=== PATIENT | male | born 1940 | race Caucasian/White ===

== ENCOUNTER → 2018-08-30 | Outpatient (CLI) | payer MEDICARE, OTHER ==
[2018-08-30 13:22] LABS: HCT 44.7 % (39.0-53.0); HGB 14.7 gm/dL (13.0-17.5); MCH 29.8 pg (25.0-35.0); MCHC 32.9 g/dL (31.0-37.0); MCV 90.8 fL (80.0-100.0); Mean Platelet Volume 7.8; Platelet Count 235 k/uL (150-450); RBC 4.93 m/uL (4.30-5.90); RDW 14.4 % (11.5-15.5); WBC 6.9 k/uL (3.8-10.6)
[2018-08-30 13:26] LABS: ALT 24 U/L (21-72); AST 42 U/L (17-59); Alkaline Phosphatase 67 U/L (38-126); Anion Gap 4 mmol/L; Blood Urea Nitrogen 21 mg/dL (9-20); Calcium 9.3 mg/dL (8.4-10.2); Carbon Dioxide 32 mmol/L (22-30); Chloride 102 mmol/L (98-107); Glucose 88 mg/dL (74-99); Potassium 4.8 mmol/L (3.5-5.1); Sodium 138 mmol/L (137-145); Total Bilirubin 0.7 mg/dL (0.2-1.3); Total Protein 6.7 g/dL (6.3-8.2)
[2018-08-30 13:27] LABS: INR 0.9 (<1.2); Partial Thromboplastin Time 26.6 sec (22.0-30.0); Prothrombin Time 10.2 sec (9.0-12.0)
[2018-08-30 13:39] LABS: Appearance,Urine Clear (Clear); Bilirubin,Urine Negative (Negative); Blood,Urine Negative (Negative); Color,Urine Yellow; Glucose,Urine (UA) Negative (Negative); Ketones,Urine Negative (Negative); Leukocyte Esterase,Urine Negative (Negative); Nitrite,Urine Negative (Negative); Protein,Urine Negative (Negative); Specific Gravity,Urine 1.028 (1.001-1.035)
== END | disposition home or self-care (01) ==
LOC: LABPAT 12:14
PROVIDERS: ATTEND Orthopaedic Surgery Sports Medicine
DX: Z01.812 Encounter for preprocedural laboratory examination (principal); Z79.01 Long term (current) use of anticoagulants
CPT/HCPCS: 36415; 80053; 81003; 85027; 85610; 85730; 87070

== ENCOUNTER 2018-09-25 09:19 | Inpatient (IN) | payer MEDICARE, OTHER ==
[~2018-09-25 09:19] MED LIST: ACETAMINOPHEN TAB 500 MG TAB PO ONE; MELOXICAM 7.5 MG TAB PO ONE; ONDANSETRON 4 MG/2 ML VIAL IVP ONE; TRANEXAMIC ACID 1,000 MG in SODIUM CHLORIDE 0.9% 100 ML IVPB ONE; ceFAZolin IN SWFI 2 GM/20 ML SYRINGE IVP ONE
[2018-09-25] MEDS ORDERED: LACTATED RINGERS 1,000 ML IV ONE ×3 (11:21→16:59)
[2018-09-25] MEDS: ROPIVACAINE 246.25 MG, EPINEPHrine 0.5 MG, KETOROLAC 30 MG, cloNIDine HCL/PF 80 MCG, WA... MISCELLANE ONE ×10 (12:36→13:35)
[2018-09-25] MEDS ORDERED: traMADol 50 MG TAB PO PRN (12:36)
[2018-09-25] MEDS ORDERED: BISACODYL 10 MG SUPP RECTAL PRN (12:36)
[2018-09-25] MEDS ORDERED: NALOXONE 0.4 MG/ML 1 ML VIAL IV PRN ×2 (12:36→17:01)
[2018-09-25] MEDS ORDERED: HYDROmorphone 0.5 MG/0.5 ML SYRINGE IVP PRN ×3 (12:36)
[2018-09-25] MEDS ORDERED: MAGNESIUM HYDROXIDE 2,400 MG/10 ML CUP PO PRN (12:36)
[2018-09-25] MEDS ORDERED: TEMAZEPAM 15 MG CAP PO PRN (12:36)
[2018-09-25] MEDS ORDERED: NA PHOS,M-B/NA PHOS,DI-BA 133 ML ENEMA RECTAL PRN (12:36)
[2018-09-25] MEDS ORDERED: DIAZEPAM 5 MG TAB PO PRN (12:36)
[2018-09-25] MEDS ORDERED: ONDANSETRON 4 MG in SODIUM CHLORIDE 0.9% 50 ML IVPB PRN (12:44)
[2018-09-25] MEDS ORDERED: ONDANSETRON 4 MG/2 ML VIAL IVP PRN (12:46)
[2018-09-25] MEDS ORDERED: MIDAZOLAM 2 MG/2 ML VIAL ONE (12:52)
[2018-09-25] MEDS ORDERED: ePHEDrine SULFATE/0.9% NACL/PF 50 MG/5 ML SYRINGE IV ONE (12:52)
[2018-09-25] MEDS ORDERED: MORPHINE SULFATE (PF) 0.3 MG/0.3 ML SYR ONE (12:52)
[2018-09-25] MEDS ORDERED: TRANEXAMIC ACID 1,000 MG/10 ML VIAL ONE (12:52)
[2018-09-25] MEDS ORDERED: PROPOFOL 10 MG/ML 20 ML VIAL IV ONE (12:52)
[2018-09-25] MEDS ORDERED: fentaNYL (PF) 50 MCG/ML 2 ML AMP ONE (12:52)
[2018-09-25] MEDS ORDERED: SODIUM CHLORIDE 0.9% 100 ML BAG ONE (12:52)
[2018-09-25] MEDS ORDERED: ceFAZolin 3,000 MG in SODIUM CHLORIDE 0.9% IRRIGATIO 3,000 ML IRRIGATION ONE (13:35)
--- NOTE | 2018-09-25 15:36 | XR ---
EXAMINATION TYPE: XR knee limited RT DATE OF EXAM: 09/25/2018 COMPARISON: NONE TECHNIQUE: Two views submitted HISTORY: Post op FINDINGS: There is a prosthetic knee in near anatomic alignment. There is soft tissue edema and emphysema. IMPRESSION: 1. Postoperative change. Appears in near-anatomic alignment
[2018-09-25] MEDS ORDERED: NALBUPHINE 10 MG/ML (1 ML AMP) IV PRN (17:01)
[2018-09-25] MEDS ORDERED: diphenhydrAMINE 50 MG/ML 1 ML VIAL IVP PRN (17:01)
[2018-09-25 17:24] VITALS: BMI 30.4
[2018-09-25] MEDS ORDERED: FUROSEMIDE 20 MG TAB PO PRN (18:13)
[2018-09-25] MEDS: LACTATED RINGERS 1,000 ML IV SCH (18:59)
--- NOTE | 2018-09-25 19:52 | CONS ---
CONSULTATION REASON FOR CONSULTATION: Advice regarding hypertension, multiple medical issues requested by Orthopedic surgery. HISTORY OF PRESENT ILLNESS: This 78-year-old gentleman with a past medical history of GERD, hypertension, history of DJD, history of macular degeneration, cholecystomy being followed by Dr. Weems in the outpatient setting underwent right total knee arthroplasty. There is no history of fever, rigors or chills. No history of headache, loss of consciousness, chest pain, palpitations, hematochezia or melena at this time. PAST MEDICAL HISTORY: GERD, hypertension, DJD, macular degeneration, cholecystectomy. MEDICATIONS: Home medications are: 1. Vitamin C. 2. Zinc. 3. Omeprazole. 4. Lisinopril. 5. Hydrochlorothiazide. 6. Zestoretic. 7. Lasix 20 mg. 8. Vitamin D3. 9. Aspirin 320 mg b.i.d. ALLERGIES: None. FAMILY HISTORY: History of cancer in the family. SOCIAL HISTORY: Previous history of smoking. No history of alcohol intake. REVIEW OF SYSTEMS: ENT: No diminished vision. No diminished hearing. CARDIOVASCULAR: No angina or palpitations. RESPIRATIONS: As mentioned earlier. GI no nausea or vomiting. no dysuria. NERVOUS SYSTEMS: No asthma or hayfever. MUSCULOSKELETAL: As mentioned earlier. HEMATOLOGY/ONCOLOGY: No history of anemia. ENDOCRINE: No history of diabetes or hypothyroidism. CONSTITUTIONAL: As mentioned earlier. DERMATOLOGY: Negative. RHEUMATOLOGY: Negative. PSYCHIATRY: As mentioned earlier. PHYSICAL EXAMINATION: Alert and oriented x2. Pulse 52. Blood pressure 123/50, respiration 18, temperature 97.7, pulse ox 100 percent on room air. HEENT: Conjunctivae normal. Oral mucosa moist. NECK is no jugular venous distention. No carotid bruit. No lymph node enlargement. CARDIOVASCULAR SYSTEM: No S3, no S4. RESPIRATORY: Breath sounds diminished in the bases. No rhonchi. No crackles. ABDOMEN: Soft, nontender. No mass palpable. LEGS: Status post right knee arthroplasty. NERVOUS SYSTEM: Higher functions as mentioned earlier. Moves all four limbs. No focal deficits. LYMPHATICS: No lymph nodes palpable in the neck, axillae or groin. SKIN: No ulcer, no rashes, no bleeding. JOINTS: Mentioned earlier. LABS: Previous labs, CBC, BMP recent within normal limits. ASSESSMENT: 1. Status post right total knee arthroplasty. 2. Bradycardia, possibly sinus. 3. Gastroesophageal reflux disease. 4. Hypertension. 5. History of degenerative joint disease. 6. History of macular degeneration. 7. Leaky aortic valve, stable. 8. History of cholecystectomy. 9. Remote history of nicotine dependence. 10.FULL CODE. RECOMMENDATIONS AND DISCUSSION: This 78-year-old gentleman presented after surgery at this time I recommend to continue current medications, management and symptomatic treatment. I recommend resume the home medications and closely monitor. The patient may be asked to follow up with Dr. Weems after discharge. Thank you for letting us participate in the care of this patient. MMODL / IJN: [id number] /
--- NOTE | 2018-09-25 20:34 | OP ---
OPERATIVE REPORT DATE OF PROCEDURE: 09/25/2018. SURGEON: Josh Espinoza M.D. PNEUMATIC SYSTEM CONVEYOR OPERATOR: Eric QUINTANA. PREOPERATIVE DIAGNOSIS: Right knee osteoarthrosis. POSTOPERATIVE DIAGNOSIS: Right knee osteoarthrosis. OPERATION PERFORMED: Right total knee arthroplasty. ANESTHESIA: Spinal sedation. ESTIMATED BLOOD LOSS: 100 mL. TOURNIQUET TIME: 50 minutes at 250 mmHg. COMPLICATIONS: None apparent. DRAINS: None. DISPOSITION: Postanesthesia care unit. INDICATIONS: Mr. Hernandez is a very pleasant 78-year-old male with longstanding history of right knee pain. History and physical examination are consistent with advanced right knee osteoarthrosis. He has been through significant nonoperative management at this point. Further treatment options were discussed. He has decided to go forward with right total knee arthroplasty. The risks of procedure were discussed with him in detail. These risks include, but are not limited to risk of infection, nerve damage, bleeding, pain and risk of deep vein thrombosis which could lead to fatal pulmonary embolism. There is also risk of loosening of the implant which could require revision operation. The patient understands these risks. All of his questions were answered to his satisfaction. Appropriate informed consent was obtained. DESCRIPTION OF THE PROCEDURE: The patient identified in the preoperative holding area. Surgical site was marked by both the patient and myself. He was given 2 g of Ancef IV for prophylactic purposes. He was then transferred to the operative suite. He was placed supine on the operative room table. Spinal anesthetic was then administered and dosed per the anesthesia department without apparent complication. Examination under anesthesia was then performed. The patient was 3-5 degrees shy of full extension. He had 100 degrees of flexion. The medial collateral ligament, lateral collateral ligament and posterior cruciate ligaments were stable. A tourniquet was then placed high on the right upper thigh well-padded in preparation for surgery. The patient's right lower extremity was then prepped and draped in usual sterile fashion. Standard surgical pause undertaken to ensure that we were operating on the correct site and that appropriate preoperative antibiotics were given. All staff in the room were in agreement. We proceeded. The outlines of the patella were marked with surgical pen. A planned 12 cm vertical incision centered over the patella was marked with a surgical pen. Leg was exsanguinated with an Esmarch dressing. The knee was then flexed and the tourniquet was inflated to 250 mmHg. The total tourniquet time for the procedure was 50 minutes. Incision was then made with a 10 blade scalpel. Dissection carried down sharply overlying fascia. Great care was taken to minimize the skin flaps. The knee was then exposed using a standard medial parapatellar approach. A small cuff of quadriceps tendon was then left for suturing. He was in a bit of valgus preoperatively. A very minimal medial release was then made. This was done just to so that I could allow me to place retractors on the medial side of the knee. The medial meniscus was then excised as well. The lateral meniscus was also released anteriorly. The leg was then externally rotated. The patella was everted. The knee was flexed. The retractors were then placed to protect the collateral ligaments. I then proceeded to remove the infrapatellar fat pad. This was excised sharply tangentially with fibers of the patellar tendon. I then proceeded to remove peripheral osteophytes. This was done with a rongeur. I then proceeded with the distal femoral resection. He did have a small flexion contracture. I planned to take an extra 2 mm of bone off the distal femur. A planned 11 mm resection was then done. The femoral canal was then entered in midline the femur approximately 10 mm anterior to the origin of the posterior cruciate ligament. The antonia was then advanced down the center of the femur and placed intramedullary. Based on the preoperative radiographs, the angle between the anatomic and mechanical axis of the femur was approximately 4-5 degrees. The valgus angle of the distal femoral cutting guide was then set at 4 degrees for the right knee. The distal femoral cutting guide was then advanced over the intramedullary antonia. This was seated firmly against the femur. I then as mentioned planned to take 11 mm off the distal femur. The cutting block was then secured onto the femur with pins. The jig was removed. The distal femoral cutting was made through the slot of the block. The pin was then removed. The distal femoral cutting block was removed. The accuracy of the distal femoral cuts was checked with 2 flat bars. I then proceed to femoral sizing. Posterior referencing sizing guide was held firmly against the resected distal surface of the femur. Posterior condyles were resting on the posterior plane of the guide. Sizing stylus was then placed onto the anterior femur. The size measured as a size 11. I then assessed for femoral rotation. Plan was for 3 degrees of external rotation. Three degrees of external rotation was placed onto the jig. These holes were then marked. I then confirmed the rotation by 3 separate methods. This was done using epicondylar axis as well as Whitesides line and posterior referencing. It was deemed that the external rotation was proper. I then went forward placing the femoral cutting block. This was placed over the previously placed pin holes. The Michael wing was then placed on the anterior slots to ensure that we would not notch the anterior femur with the anterior femoral cut. I then proceeded with the anterior femoral cut. This was flush with the anterior cortex of the femur. The posterior cuts were then made followed by the anterior chamfer cut, then the posterior chamfer cut. The cutting block was then removed. Throughout the resection, the collateral ligaments were protected with retractors. I then placed a trial size 11 femur. It fit very nice medial-lateral and fit flush with the distal end of the femur. The drill holes were then made. I then proceed with the tibial cut. I planned for cruciate retaining knee. The guide was placed and set for varus valgus and for slope. The height was set for approximate 2 mm resection from the lateral tibial plateau which was the lower side. I was happy with alignment amount and of resection. The cutting block was then pinned to the proximal tibia. The alignment antonia was removed. The proximal tibia was resected with a reciprocating saw. Again this was done with retractors protecting the collateral ligaments as well as the posterior cruciate ligament. I then proceeded to evaluate the flexion extension gaps. A 10 mm block was then placed. The flexion and extension gaps were equal. I then proceeded with resection of posterior osteophytes. He had very mild posterior osteophytes. This was done using a curved osteotome. This resected the posterior osteophytes and posterior capsule stripping was also done off the posterior aspect of the femur at this time. The osteophytes were then removed. I then proceeded with resection of patella. The thickness of patella was measured using a caliper. The thickness was 25 mm. The thickness of the anticipated patellar dome was taken into account. Resection was then performed and confirmed to be equal in 4 quadrants using a caliper. Approximately 14 mm of bone remained after the resection. A 35 x 9 standard patellar trial was then placed. The holes drilled. The trial was then placed. I then proceeded with sizing the tibial plate. A size H tibial plate fit very nicely. I then placed the trial femur, the tibial tray and patellar button. A 10 mm trial tibial insert was also placed. The components fit very nicely. He had full extension and flexion. The extension and flexion gaps were equal and stable to both varus and valgus stress. The patella tracked appropriately. The tibial tray rotation was then marked with a Bovie. This was externally rotated properly. I then proceed with tibial preparation. I first drilled the femoral holes removed femoral component. The tibial tray was then set for proper external rotation as well as mediolateral placement onto the tibia. It was then pinned into place. I then proceed with punching the keel. I then decided to proceed with cementing of all of our components. The knee was thoroughly irrigated with sterile saline solution via pulse lavage. The lateral geniculate artery was identified and cauterized. All blood was removed from around the bone of the tibia femur and patella with pulse lavage. I then proceed with cementing. Two packs of antibiotic bone cement prepared on the back table by the surgical physician assistant. I then proceeded with cementing the tibia first. The cement was impacted into the keel as well as deeply seated in the bone. A second coat of cement was then placed. The tibia was then impacted into place. Excess cement was removed with Berenice's and Joker's. I then proceed with cementing the femoral component. The femoral component was also cemented using standard technique. Excess cement was removed. A 10 mm trial insert was then placed into the knee. It was brought into full extension with a constant axial load placed until the cement had hardened. The patellar component was then cemented. This held firmly with a compressive device until the cement had dried. When the cement had dried, the knee was taken out of extension. All excess cement was removed from around the prosthesis. I then trialed the knee with a 10 mm insert. Flexion extension gaps were appropriate. The knee was stable. It came into full extension. I decided to go forward with the 10 mm cross-linked cruciate-retaining tibial insert. Polyethylene was then placed onto the tibial tray and locked into place. The knee was then reduced. The knee was again further irrigated with sterile saline solution with antibiotic added. The tourniquet was then deflated. Total tourniquet time for the procedure was 50 minutes at 250 mmHg. Final components were Cristy Persona size 11 cruciate-retaining femoral component, size H tibial tray, a 10 mm medial congruent cruciate-retaining polyethylene insert and a 35 x 9 mm patella. I then proceeded with closure. Again, the knee was thoroughly irrigated. The quadriceps tendon and medial retinaculum were reapproximated with #2 Ethibond suture. The extensor mechanism was then closed with a running #2 Quill suture. Subcutaneous tissues were then closed with 2-0 Vicryl interrupted suture. The skin was closed with a running 3-0 Quill suture. Dermabond was then applied to the incision. Sterile compressive dressing was then applied. All sponge and needle counts were deemed correct prior to closure. The patient tolerated procedure without apparent complication. He was transferred to recovery room in stable condition. MMODL / IJN: [id number] /
[2018-09-25] MEDS: ASPIRIN 325 MG TAB PO SCH (21:00)
[2018-09-25] MEDS: ceFAZolin IN SWFI 2 GM/20 ML SYRINGE IVP SCH (21:00)
[2018-09-25] MEDS: SENNOSIDES-DOCUSATE SODIUM 1 EACH TAB PO SCH (21:00)
[2018-09-26] MEDS: HYDROcodone/APAP 5-325MG 1 EACH TAB PO PRN ×4 (03:20→22:05)
[2018-09-26] MEDS: ceFAZolin IN SWFI 2 GM/20 ML SYRINGE IVP SCH (05:22)
[2018-09-26 08:19] LABS: Basophils # (A) 0.1 k/uL (0-0.2); Basophils % (A) 1 %; Eosinophils # (A) 0.3 k/uL (0-0.7); Eosinophils % (A) 3 %; HCT 39.1 % (39.0-53.0); HGB 12.7 gm/dL (13.0-17.5); Lymphocytes # (A) 0.6 k/uL (1.0-4.8); Lymphocytes % (A) 6 %; MCH 29.5 pg (25.0-35.0); MCHC 32.5 g/dL (31.0-37.0); Monocytes # (A) 0.6 k/uL (0-1.0); Monocytes % (A) 6 %; Neutrophils # (A) 7.5 k/uL (1.3-7.7); Neutrophils % (A) 83 %; Platelet Count 193 k/uL (150-450); RBC 4.29 m/uL (4.30-5.90); RDW 14.4 % (11.5-15.5)
[2018-09-26] MEDS: ASPIRIN 325 MG TAB PO SCH ×2 (08:26→20:00)
[2018-09-26] MEDS: PANTOPRAZOLE 40 MG TABLET PO SCH (08:26)
[2018-09-26] MEDS: LACTATED RINGERS 1,000 ML IV SCH (08:26)
[2018-09-26] MEDS: LISINOPRIL-HCTZ 10-12.5 MG 1 EACH TAB PO SCH (08:26)
--- NOTE | 2018-09-26 09:52 | P.DS ---
Providers Date of admission: 09/25/18 10:47 Expected date of discharge: 09/26/18 Attending physician: Josh Espinoza Consults: 09/25/18 12:36 Consult Physician Routine Consulting Provider: Zakia Gastelum Consult Reason/Comments: post op medical management Do you want consulting provider notified?: Yes Primary care physician: Jonah Weems - Discharge Diagnosis(es) (1) Status post right knee replacement Patient was admitted to the OR on 09/25/2018 to undergo a right total knee arthroplasty. He had failed conservative measures an outpatient and desired to proceed with elective surgery after given informed consent. He underwent the above procedure which he tolerated well without complication. Postoperative hospital course has remained without complication. On day of discharge he is afebrile, vital signs stable, labs within acceptable ranges, tolerating by mouth meds and diet, voiding without difficulty, positive flatus, denies abdominal pain or calf pain, pain is controlled on oral pain medication and has no new complaints. Wound is benign, neurovascular status is intact, calf is soft and nontender, abdomen soft and nontender. Review of systems is negative for numbness, tingling, fever, chills, chest pain, shortness breath, nausea, vomiting, dizziness, headaches, slurred speech or other. Current Visit: Yes Status: Acute Priority: Medium Procedures: Right TKA Patient Condition at Discharge: Good Plan - Discharge Summary Discharge Rx Participant: Yes New Discharge Prescriptions: New Aspirin 325 mg PO BID #60 tab Docusate [Colace] 100 mg PO BID #60 capsule HYDROcodone/APAP 7.5-325MG [[place] 7.5-325] 1 - 2 each PO Q6HR PRN #56 tab PRN Reason: Pain No Action Omeprazole [PriLOSEC] 20 mg PO DAILY Lisinopril-Hctz 10-12.5 mg [Zestoretic 10-12.5] 1 tab PO DAILY Furosemide [Lasix] 20 mg PO DAILY PRN PRN Reason: leg swelling Vit C/E/Zn/Coppr/Lutein/Zeaxan [Preservision Areds 2 Softgel] 1 cap PO DAILY Calcium Carbonate/Vitamin D3 [Calcium 600-Vit D3 400 Caplet] 1 tab PO DAILY Aspirin 325 mg PO BID #84 tab Discharge Medication List Calcium Carbonate/Vitamin D3 [Calcium 600-Vit D3 400 Caplet] 1 tab PO DAILY 11/10/15 [History] Furosemide [Lasix] 20 mg PO DAILY PRN 11/10/15 [History] Lisinopril-Hctz 10-12.5 mg [Zestoretic 10-12.5] 1 tab PO DAILY 11/10/15 [His tory] Omeprazole [PriLOSEC] 20 mg PO DAILY 11/10/15 [History] Vit C/E/Zn/Coppr/Lutein/Zeaxan [Preservision Areds 2 Softgel] 1 cap PO DAILY 11/10/15 [History] Aspirin 325 mg PO BID #84 tab 11/21/15 [Rx] Aspirin 325 mg PO BID #60 tab 09/26/18 [Rx] Docusate [Colace] 100 mg PO BID #60 capsule 09/26/18 [Rx] HYDROcodone/APAP 7.5-325MG [[place] 7.5-325] 1 - 2 each PO Q6HR PRN #56 tab 09/26/18 [Rx] Follow up Appointment(s)/Referral(s): Josh Espinoza MD [STAFF PHYSICIAN] - 10 Days Activity/Diet/Wound Care/Special Instructions: Keep wound clean and dry Take meds as directed Follow-up with Dr. Espinoza in office Weight bear as tolerated May shower in 3 days if no bleeding Discharge Disposition: HOME WITH HOME HEALTH SERVICES
[2018-09-26] MEDS ORDERED: TAMSULOSIN 0.4 MG CAP.ER.24H PO STA (12:05)
[2018-09-26] MEDS: MULTIVITAMINS, THERA 1 EACH TAB PO SCH (12:31)
--- NOTE | 2018-09-26 13:45 | P.PN ---
Progress Note - Text Anesthesia POD 1. Patient is status post right TKR under spinal anesthesia with intra-thecal preservative free morphine 300 g. Minimal pruritus, excellent post-op analgesia, and no headache or other complication.
--- NOTE | 2018-09-26 13:56 | PN ---
PROGRESS NOTE DATE OF SERVICE: 09/26/2018. This 78-year-old gentleman who underwent right total knee joint arthroplasty, is complaining of some knee pain. The patient also has some difficulty in micturition. No chest pain. No palpitations. No fever. PHYSICAL EXAMINATION: On exam, alert and oriented x3. Pulse 78, blood pressure 149/70, respiration 15, temperature 98.1, pulse ox 98% on 2 L. HEENT: Conjunctivae normal. NECK: No jugular venous distention. CARDIOVASCULAR: S1, S2 muffled. Ejection systolic murmur present. RESPIRATORY: Breath sounds diminished at the bases. No rhonchi, no crackles. ABDOMEN: Soft. Nontender. NERVOUS SYSTEM: No focal deficits. LEGS: Status post right knee arthroplasty. LAB STUDIES: WBC 9, hemoglobin 12.7. ASSESSMENT: 1. Status post right total knee arthroplasty. 2. Urinary retention. 3. Bradycardia, possibly sinus. 4. Gastroesophageal reflux disease. 5. Hypertension. 6. History of degenerative joint disease. 7. History of macular degeneration. 8. History of leaky aortic valve, stable. 9. History of cholecystectomy. 10.Remote history of nicotine dependence. 11.FULL CODE. RECOMMENDATIONS AND DISCUSSION: This 78-year-old gentleman presented with multiple medical issues. Recommend to continue the current medications. Add Flomax. Check bladder scan. Otherwise, I would also recommend closely monitor. Continue with DVT prophylaxis. The rest of the medications. Pain management per Orthopedic Surgery. Further recommendations to follow. MMODL / IJN: [id number] /
[2018-09-26] MEDS: HYDROcodone/APAP 10-325MG 1 EACH TAB PO PRN (17:50)
[2018-09-26] MEDS: SENNOSIDES-DOCUSATE SODIUM 1 EACH TAB PO SCH (20:00)
[2018-09-27] MEDS: HYDROcodone/APAP 5-325MG 1 EACH TAB PO PRN ×6 (02:05→22:20)
[2018-09-27] MEDS: LACTATED RINGERS 1,000 ML IV SCH (05:35)
[2018-09-27] MEDS: LISINOPRIL-HCTZ 10-12.5 MG 1 EACH TAB PO SCH (09:09)
[2018-09-27] MEDS: MULTIVITAMINS, THERA 1 EACH TAB PO SCH (09:09)
[2018-09-27] MEDS: ASPIRIN 325 MG TAB PO SCH ×2 (09:09→20:46)
[2018-09-27] MEDS: PANTOPRAZOLE 40 MG TABLET PO SCH (09:10)
[2018-09-27] MEDS: TAMSULOSIN 0.4 MG CAP.ER.24H PO SCH (09:10)
--- NOTE | 2018-09-27 11:56 | P.PN ---
Subjective Progress Note Date: 09/27/18 Principal diagnosis: S/P right TKA Patient is seen at bedside this morning. He is postop day #2 from right total knee arthroplasty.. He has pain at the surgical site as expected but denies any new complaints. he had issues with voiding yesterday but appears to be resolved. He has been slow with therapy and ambulation. He denies numbness, tingling or calf pain. Review of systems is negative for fever, chills, chest pain, shortness of breath or other Objective - Vital Signs Vital signs: Vital Signs Temp 99.0 F 09/27/18 07:35 Pulse 83 09/27/18 07:35 Resp 15 09/27/18 07:35 BP 155/67 09/27/18 07:35 Pulse Ox 92 L 09/27/18 07:35 Intake & Output 09/26/18 09/27/18 09/27/18 18:59 06:59 18:59 Intake Total 940 180 Output Total 285 100 Balance 655 -100 180 Intake: Intake, IV Titration 400 Amount Lactated Ringers 1,000 ml 400 @ 50 mls/hr IV .Q20H ERICH Rx#:[id number] Oral 540 180 Output: Urine 285 100 Other: # Voids 1 - Exam Inspection reveals a benign surgical wound. There is no active bleeding or drainage. Neurovascular status is intact throughout the lower extremity with motor and sensation fully intact. Calf is soft and nontender. 2+ dorsalis pedis pulse and less than 2 second cap refill is present. - Constitutional General appearance: Present: no acute distress - Labs CBC & Chem 7: 09/26/18 07:09 Assessment and Plan (1) Status post right knee replacement Narrative/Plan: He will continue with routine postop orthopedic protocol including pain management, wound care, PT, DVT prophylaxis and medical management. Expect that he will transfer to home tomorrow if progresses with PT and OK with IM. Current Visit: Yes Status: Acute Priority: Medium Code(s): Z96.651 - PRESENCE OF RIGHT ARTIFICIAL KNEE JOINT SNOMED Code(s): 9647349133334 Time with Patient: Less than 30
--- NOTE | 2018-09-27 17:47 | PN ---
PROGRESS NOTE DATE OF SERVICE: 09/27/2018 This 72-year-old gentleman, admitted with right knee arthroplasty, is still complaining of right knee pain. No chest pain. No palpitations. No fever. On exam, alert and oriented x3. Pulse 83, blood pressure 155/67, respiration 15, temperature 99 degrees, pulse ox 92% on 2 L. HEENT: Conjunctivae normal. NECK: No jugular venous distention. CARDIOVASCULAR SYSTEM: S1, S2 muffled. RESPIRATORY SYSTEM: Breath sounds diminished at the bases. No rhonchi. No crackles. ABDOMEN: Soft. LEGS: Status post knee arthroplasty. NERVOUS SYSTEM: No focal deficit. LABS: WBC 9, hemoglobin 12.7. ASSESSMENT: 1. Status post right total knee arthroplasty. 2. Urinary retention, improved. 3. Bradycardia, possibly sinus. 4. Gastroesophageal reflux disease. 5. Hypertension. 6. History of degenerative joint disease. 7. History of macular degeneration. 8. History of leaky aortic valve, stable. 9. History of cholecystectomy. 10.Remote history of nicotine dependence. 11.FULL CODE. RECOMMENDATIONS AND DISCUSSION: I recommend to continue current medications, continue with the monitoring, symptomatic treatment. Otherwise at this time I recommend continuing the pain medications. DVT prophylaxis. Incentive spirometry. Closely follow with Orthopedic Surgery. Further recommendations to follow. MMODL / IJN: [id number] /
[2018-09-27] MEDS: SENNOSIDES-DOCUSATE SODIUM 1 EACH TAB PO SCH (20:46)
[2018-09-28] MEDS: HYDROcodone/APAP 5-325MG 1 EACH TAB PO PRN ×2 (02:04→06:06)
[2018-09-28] MEDS: LACTATED RINGERS 1,000 ML IV SCH ×2 (02:08→21:43)
[2018-09-28 07:48] LABS: Basophils % (A) 0 %; Eosinophils # (A) 0.2 k/uL (0-0.7); Eosinophils % (A) 3 %; HCT 33.1 % (39.0-53.0); HGB 10.7 gm/dL (13.0-17.5); Lymphocytes # (A) 0.6 k/uL (1.0-4.8); Lymphocytes % (A) 7 %; MCH 29.2 pg (25.0-35.0); MCHC 32.3 g/dL (31.0-37.0); MCV 90.5 fL (80.0-100.0); Mean Platelet Volume 8.3; Monocytes # (A) 0.7 k/uL (0-1.0); Monocytes % (A) 8 %; Neutrophils # (A) 6.9 k/uL (1.3-7.7); Neutrophils % (A) 80 %; Platelet Count 165 k/uL (150-450); RBC 3.66 m/uL (4.30-5.90); RDW 14.7 % (11.5-15.5); WBC 8.6 k/uL (3.8-10.6)
[2018-09-28] MEDS: TAMSULOSIN 0.4 MG CAP.ER.24H PO SCH (08:03)
[2018-09-28] MEDS: ASPIRIN 325 MG TAB PO SCH ×2 (08:03→21:39)
[2018-09-28] MEDS: PANTOPRAZOLE 40 MG TABLET PO SCH (08:03)
[2018-09-28] MEDS: LISINOPRIL-HCTZ 10-12.5 MG 1 EACH TAB PO SCH (08:03)
[2018-09-28] MEDS: HYDROcodone/APAP 10-325MG 1 EACH TAB PO PRN (09:34)
--- NOTE | 2018-09-28 11:37 | P.PN ---
Progress Note - Text Progress Note Date: 09/28/18 Patient is very pleasant 78-year-old male who is seen and examined at bedside for further evaluation following a right total knee arthroplasty performed by Dr. Espinoza on 09/25/2018. Postoperatively he has had some difficulty with pain control at his right knee. He did require IV Dilaudid this morning. He states he did require frequent oral narcotic dosing on his previous left total knee arthroplasty. He has been able to ambulate without significant difficulty. He has been ambulating the halls. He is eating and voiding without difficulty. He feels a little better pain control he would be able to be discharged home. He has a medical history which includes heart disease. He is being seen and examined by medicine. Physical Exam Total Knee Arthroplasty: Status post surgical day number 3 Patient is awake, alert, and oriented 3 Vital signs stable Good chest excursion with deep inspiration and expiration Abdomen soft nontender No signs or symptoms of DVT; no calf pain Dressing at the right knee is clean, dry, and intact; no erythema, purulence, or signs of infection Patient has full foot and ankle motion without difficulty bilateral lower extremities Dorsiflexion, plantar flexion, and extensor hallucis longus positive sustained bilaterally Neurovascular status left lower extremity intact Capillary refill lower extremity is bilaterally less than 2 seconds Assessment: Status post right total knee arthroplasty Right knee pain History of heart disease Plan: 1. Patient to remain weight-bear as tolerated on the right lower extremity; patient may work with physical therapy to increase mobility and ambulation 2. Continue pain control; we'll plan to increase to [place] 7.5 mg/325 mg 1 tab every 4 hours as needed for pain; we will plan to avoid IV narcotic pain medication in anticipation for discharge home tomorrow, 09/29/2018 3. Medicine to continue following the patient for his other medical diagnoses 4. Patient to continue with anticoagulation with aspirin 325 mg twice a day 5. We'll continue to follow the patient; if the patient is able to improve over the next day and has better pain control with increase to [place] 7.5 mg/325 mg, we'll plan for discharge home tomorrow, 10/05/2018 with a new prescription for [place] 7.5 mg/25 mg to be prescribed at that time. 6. Patient will more than likely remain in the hospital over the weekend with plans to be discharged to 7. Patient can follow-up with Dr. Josh Espinoza or Eric العراقي PA-C at [facility] in 2-3 weeks following discharge
[2018-09-28] MEDS: MULTIVITAMINS, THERA 1 EACH TAB PO SCH (12:40)
[2018-09-28] MEDS: HYDROcodone/APAP 7.5-325MG 1 EACH TAB PO PRN ×3 (15:25→22:38)
--- NOTE | 2018-09-28 16:24 | PN ---
PROGRESS NOTE DATE OF SERVICE: 09/28/2018 This 72-year-old gentleman admitted with right total knee joint arthroplasty also had urinary retention. No chest pain. No palpitations. No fever. EXAM: Alert and oriented x three. Pulse 80, blood pressure 127/68, respirations 16, temperature 98.7, pulse ox 94% on room air. HEENT: Conjunctivae normal. NECK: No jugular venous distention. CARDIOVASCULAR: S1, S2 muffled. RESPIRATIONS: Breath sounds diminished in the bases. No rhonchi. No crackles. ABDOMEN soft. LEGS: Status post knee arthroplasty. NERVOUS SYSTEM: No focal deficits. LABS: WBC 8.2, hemoglobin 10.7. ASSESSMENT: 1. Status post right total knee joint arthroplasty. 2. Urinary retention, improved. 3. Bradycardia, possibly sinus. 4. Gastroesophageal reflux disease. 5. Hypertension. 6. History of degenerative joint disease. 7. History of macular degeneration. 8. History of leaky aortic valve, stable. 9. History of cholecystectomy. 10.Remote history of nicotine dependence. 11.FULL CODE. RECOMMENDATIONS AND DISCUSSION: I recommend to continue current medications, continue with monitoring and symptomatic treatment. Otherwise, at this time, we will monitor the patient closely. Continue with current medications. Otherwise, orthopedic surgery evaluation. Adjust the pain medications. Further recommendations to follow. MMODL / IJN: [id number] /
[2018-09-28] MEDS: SENNOSIDES-DOCUSATE SODIUM 1 EACH TAB PO SCH (21:39)
[2018-09-29 02:51] VITALS: PULSE 73
[2018-09-29] MEDS: HYDROcodone/APAP 7.5-325MG 1 EACH TAB PO PRN ×4 (02:56→15:16)
[2018-09-29 07:34] VITALS: BP 128/59; TEMP 98.4
[2018-09-29] MEDS: PANTOPRAZOLE 40 MG TABLET PO SCH (11:19)
[2018-09-29] MEDS: TAMSULOSIN 0.4 MG CAP.ER.24H PO SCH (11:22)
[2018-09-29] MEDS: LISINOPRIL-HCTZ 10-12.5 MG 1 EACH TAB PO SCH (11:23)
[2018-09-29] MEDS: ASPIRIN 325 MG TAB PO SCH (11:23)
--- NOTE | 2018-09-29 12:27 | P.DS ---
Providers Date of admission: 09/25/18 10:47 Expected date of discharge: 09/29/18 Attending physician: Josh Espinoza Consults: 09/25/18 12:36 Consult Physician Routine Consulting Provider: Zakia Gastelum Consult Reason/Comments: post op medical management Do you want consulting provider notified?: Yes Primary care physician: Jonah Weems - Discharge Diagnosis(es) (1) History of heart disease Current Visit: Yes Status: Acute (2) Right knee pain Current Visit: Yes Status: Acute (3) History of total left knee replacement Current Visit: Yes Status: Acute (4) Osteoarthritis of right knee Current Visit: Yes Status: Acute (5) Status post right knee replacement Current Visit: Yes Status: Acute Priority: Medium Hospital Course: This is a pleasant 78-year-old male who presented with osteoarthritis of the right knee who failed outpatient conservative therapy. He was admitted for a right total knee arthroplasty. He has been progressing postoperatively but does continue to have some pain at the right knee. He does not feel his symptoms are significant changes compared to yesterday but does feel he is ready for discharge home. He feels he would be safe and stable at home. He would like to be discharged home today. Condition on day of discharge stable. Patient will be discharged home. Patient was cleared preoperatively for surgery by Dr. Weems. Patient currently denies any nausea, vomiting, fever, or chills. Patient is eating and voiding freely without difficulty. Patient's dressing of the right knee has continued to be clean, dry, and intact. Patient may shower without a dressing intact over the right knee at this time. He may continue to weight- bear as tolerated right lower extremity. He is encouraged to elevate the right knee and apply ice for comfort support as needed. Patient has a history of previous left total knee arthroplasty and heart disease. Patient given a prescription for [place] 7.5 mg/325 mg 1-2 tabs every 6 hours as needed for pain, dispensed #56. Prescriptions also given for aspirin 325 mg take 1 tablet twice a day dispensed #60. Patient should take these medications as prescribed. Prescription for aspirin 325 mg should be be taken until completion. Patient will plan to follow-up in the outpatient setting with Dr. Espinoza in approximately 2 weeks for further evaluation. Physical Exam Total Knee Arthroplasty: Status post surgical day number 4 Patient is awake, alert, and oriented 3 Vital signs stable Good chest excursion with deep inspiration and expiration Abdomen soft nontender No signs or symptoms of DVT; no calf pain Dressing at the right knee is clean, dry, and intact; no erythema, purulence, or signs of infection Some generalized swelling over the surgical site of the right knee and right lo wer extremity Patient has full foot and ankle motion without difficulty bilateral lower extremities Dorsiflexion, plantar flexion, and extensor hallucis longus positive sustained bilaterally Neurovascular status left lower extremity intact Capillary refill lower extremity is bilaterally less than 2 seconds Procedures: Right total knee arthroplasty Patient Condition at Discharge: Stable Plan - Discharge Summary Discharge Rx Participant: Yes New Discharge Prescriptions: New Aspirin 325 mg PO BID #60 tab Docusate [Colace] 100 mg PO BID #60 capsule HYDROcodone/APAP 7.5-325MG [[place] 7.5-325] 1 - 2 each PO Q6HR PRN #56 tab PRN Reason: Pain No Action Omeprazole [PriLOSEC] 20 mg PO DAILY Lisinopril-Hctz 10-12.5 mg [Zestoretic 10-12.5] 1 tab PO DAILY Furosemide [Lasix] 20 mg PO DAILY PRN PRN Reason: leg swelling Vit C/E/Zn/Coppr/Lutein/Zeaxan [Preservision Areds 2 Softgel] 1 cap PO DAILY Calcium Carbonate/Vitamin D3 [Calcium 600-Vit D3 400 Caplet] 1 tab PO DAILY Aspirin 325 mg PO BID #84 tab Discharge Medication List Calcium Carbonate/Vitamin D3 [Calcium 600-Vit D3 400 Caplet] 1 tab PO DAILY 11/10/15 [History] Furosemide [Lasix] 20 mg PO DAILY PRN 11/10/15 [History] Lisinopril-Hctz 10-12.5 mg [Zestoretic 10-12.5] 1 tab PO DAILY 11/10/15 [History] Omeprazole [PriLOSEC] 20 mg PO DAILY 11/10/15 [History] Vit C/E/Zn/Coppr/Lutein/Zeaxan [Preservision Areds 2 Softgel] 1 cap PO DAILY 11/10/15 [History] Aspirin 325 mg PO BID #84 tab 11/21/15 [Rx] Aspirin 325 mg PO BID #60 tab 09/26/18 [Rx] Docusate [Colace] 100 mg PO BID #60 capsule 09/26/18 [Rx] HYDROcodone/APAP 7.5-325MG [[place] 7.5-325] 1 - 2 each PO Q6HR PRN #56 tab 09/26/18 [Rx] Follow up Appointment(s)/Referral(s): Jonah Weems III, MD [Primary Care Provider] - 10/01/18 3:00 pm [facility], [NON-STAFF] - As Needed Josh Espinoza MD [STAFF PHYSICIAN] - 10/08/18 9:30 am Activity/Diet/Wound Care/Special Instructions: Keep wound clean and dry Take meds as directed Follow-up with Dr. Espinoza in office Weight bear as tolerated May shower in 3 days if no bleeding Discharge Disposition: HOME WITH HOME HEALTH SERVICES
[2018-09-29] MEDS: MULTIVITAMINS, THERA 1 EACH TAB PO SCH (15:04)
[2018-09-29 16:54] VITALS: RESP 16
--- NOTE | 2018-09-29 20:52 | PN ---
PROGRESS NOTE DATE OF SERVICE: 09/29/2018. This 72-year-old gentleman admitted with right total knee arthroplasty, improved significantly. Patient had some urinary retention, which is also improved. Also orthopedics plans discharge today. No chest pain. No palpitations. No fever. EXAM: Alert and oriented times three. Pulse 73, blood pressure 120/50, respiration 16, temperature 98.4, pulse ox 98% on room air. HEENT: Conjunctivae normal. NECK: No jugular venous distention. CARDIOVASCULAR: S1, S2 muffled. RESPIRATIONS: Breath sounds diminished in the bases. A few scattered rhonchi and crackles. ABDOMEN is soft, nontender. LEGS: Status post surgery. NERVOUS SYSTEM: No focal deficits. LABS: Hemoglobin 10.7. ASSESSMENT: 1. Status post right total knee arthroplasty. 2. Urinary retention, improved. 3. Bradycardia, possibly sinus. 4. Gastroesophageal reflux disease. 5. Hypertension. 6. History of degenerative joint disease. 7. History of macular degeneration. 8. History of leaky aortic valve, stable. 9. History of cholecystectomy. 10.Remote history of nicotine dependence. 11.FULL CODE. RECOMMENDATIONS AND DISCUSSION: Recommend to continue current medications, continue the current management and symptomatic treatment. Otherwise, at this time, we will continue with incentive spirometry. I would also recommend Flomax and closely follow up with Dr. Weems in the outpatient setting. Further recommendations to follow. MMODL / IJN: [id number] /
== END 2018-09-29 17:00 | disposition home health service (06) | DRG 470 ==
LOC: 2ORMAIN 10:47 → 4SSUR 16:54
PROVIDERS: ADMIT Orthopaedic Surgery Sports Medicine; ATTEND Orthopaedic Surgery Sports Medicine
PROC: 0SRC0J9 Replacement of Right Knee Joint with Synthetic Substitute, Cemented, Open Approach (ICD-10-PCS; principal; 2018-09-25 12:30)
DX: M17.11 Unilateral primary osteoarthritis, right knee (principal); R00.1 Bradycardia, unspecified; I35.8 Other nonrheumatic aortic valve disorders; M21.061 Valgus deformity, not elsewhere classified, right knee; H35.30 Unspecified macular degeneration; I10 Essential (primary) hypertension; K21.9 Gastro-esophageal reflux disease without esophagitis; R33.9 Retention of urine, unspecified; L29.9 Pruritus, unspecified; H91.90 Unspecified hearing loss, unspecified ear; Z79.82 Long term (current) use of aspirin; Z79.899 Other long term (current) drug therapy; Z90.49 Acquired absence of other specified parts of digestive tract; Z87.891 Personal history of nicotine dependence; Z96.652 Presence of left artificial knee joint; Z98.42 Cataract extraction status, left eye; Z98.41 Cataract extraction status, right eye; Z96.1 Presence of intraocular lens; Z80.9 Family history of malignant neoplasm, unspecified; Z82.49 Family history of ischemic heart disease and other diseases of the circulatory system
CPT/HCPCS: 85025; 88300; 93005

== ENCOUNTER → 2018-12-30 | Outpatient (CLI) | payer MEDICARE, OTHER ==
[2018-12-30 11:33] LABS: African American GFR (CKD) >90 (>60 ml/min/1.73 sqM); Blood Urea Nitrogen 24 mg/dL (9-20)
--- NOTE | 2018-12-30 17:30 | CT ---
CT CHEST FOR PULMONARY EMBOLISM. EXAMINATION TYPE: CT angio chest DATE OF EXAM: 12/30/2018 INDICATION: Thoracic aortic aneurysm CT DLP: 457.0 mGycm, Automated exposure control for dose reduction was used. CONTRAST: Patient injected with 100 mL of Isovue 370. COMPARISON: 02/06/2017 TECHNIQUE: CT of the chest is performed on a spiral scan at 2 mm thick sections. Study is performed with intravenous contrast timed for evaluation for pulmonary embolism. This will limit additional po rtions of the evaluation. 3-D MIP images reconstructed by the technologist are reviewed on the compu ter in the coronal and sagittal planes. FINDINGS: No persistent filling defects are evident to suggest an acute pulmonary embolism. No dissection is ev ident. The aorta at the cardiac pelvis 3.3 cm. Descending thoracic aorta at the level of the main pulmonary artery is 3.6 cm. The mid aortic arch measures 3.1 cm. The aorta at the diaphragm measures 2.5 cm. No mediastinal or hilar adenopathy enlarged by CT criteria is evident. The ascending aorta diameter at the level of the main pulmonary artery is 3.6 cm. The main pulmonary artery diameter at the bifur cation is 3.3 cm. Lung windows are clear. Limited CT section through the upper abdomen are unremarkable. Small hiatal hernia is present. IMPRESSIONS: 1. Mild fullness of the ascending thoracic aorta with an AP diameter of 3.6 cm. The aorta otherwise t apers through the thorax to the diaphragm.
== END | disposition home or self-care (01) ==
LOC: RADCTMAIN 10:43
PROVIDERS: ATTEND Internal Medicine Interventional Cardiology
DX: I71.2 Thoracic aortic aneurysm, without rupture (principal)
CPT/HCPCS: 82565; 84520; 71275; 36415; Q9967

== ENCOUNTER → 2020-07-14 | Outpatient (CLI) | payer MEDICARE, OTHER ==
[2020-07-14 13:32] LABS: African American GFR (CKD) >90 (>60 ml/min/1.73 sqM); Blood Urea Nitrogen 21 mg/dL (9-20); Non-African American GFR(CKD) 86 (>60 ml/min/1.73 sqM)
--- NOTE | 2020-07-14 15:47 | CT ---
CT CHEST FOR PULMONARY EMBOLISM. EXAMINATION TYPE: CT angio chest DATE OF EXAM: 07/14/2020 INDICATION: follow up thoracic aortic aneurysm CT DLP: 818.1 mGycm, Automated exposure control for dose reduction was used. CONTRAST: Patient injected with 100 mL of Isovue 370. COMPARISON: 12/30/2018 TECHNIQUE: CT of the chest is performed on a spiral scan at 2 mm thick sections. Study is performed with intravenous contrast timed for evaluation for pulmonary embolism. This will limit additional po rtions of the evaluation. 3-D MIP images reconstructed by the technologist are reviewed on the compu ter in the coronal and sagittal planes. FINDINGS: No persistent filling defects are evident to suggest an acute pulmonary embolism. No mediastinal or hilar adenopathy enlarged by CT criteria is evident. The ascending aorta diameter at the level of the main pulmonary artery is 3.8 cm. The main pulmonary artery diameter at the bifur cation is 3.3 cm. There is small to moderate size hiatal hernia present. Lung windows are clear. Limited CT section through the upper abdomen are unremarkable. IMPRESSIONS: 1. Ascending thoracic aorta has increased from 3.6 to 3.8 cm in AP dimension. Otherwise, thoracic aor ta remains within normal limits. 2. Hiatal hernia.
== END | disposition home or self-care (01) ==
LOC: RADCTMAIN 12:31
PROVIDERS: ATTEND Internal Medicine Interventional Cardiology
DX: I71.2 Thoracic aortic aneurysm, without rupture (principal); K44.9 Diaphragmatic hernia without obstruction or gangrene
CPT/HCPCS: 82565; 84520; 71275; 36415; Q9967

== ENCOUNTER 2022-08-03 12:45 | Inpatient (IN) | payer MEDICARE, OTHER ==
[2022-08-03] MEDS ORDERED: HEPARIN SODIUM 1,000 UN/ML (10ML VL) IV ONE (13:12)
[2022-08-03] MEDS: HEPARIN SOD,PORK IN 0.45% NACL 25,000 UNIT in 0.45% NACL 1 250ML.BAG IV SCH (13:28)
--- NOTE | 2022-08-03 13:28 | ED ---
Arrhythmia/Palpitations HPI - General Chief Complaint: Arrhythmia/Palpitations Stated Complaint: Afib sent by Dr Fry Seen by Provider: 08/03/22 13:00 Source: patient, RN notes reviewed Mode of arrival: ambulatory Limitations: no limitations - History of Present Illness Initial Comments: 8-year-old male presents emergency from from PCPs office with chief complaint of new onset A. fib ablation. Patient states been having increasing shortness breath, heart racing. Patient's found in A. fib RVR. Patient does admit that he does have some mild CHF issues and when she has some valvular problems. Patient is followed by Dr. Whitley. Patient states he takes Lasix when necessary states she has not required anything further at this point. He states he has no increase in leg swelling. Patient states is not lays flat nighttime this is been ongoing for several years he does have history of COPD uses his albuterol inhaler quite frequently. Patient has no current chest pain. - Related Data Home Medications Medication Instructions Recorded Confirmed Calcium Carbonate/Vitamin D3 1 tab PO DAILY 11/10/15 08/03/22 [Calcium 600-Vit D3 400 Caplet] Furosemide [Lasix] 20 mg PO DAILY PRN 11/10/15 08/03/22 Lisinopril-Hctz 10-12.5 mg 1 tab PO DAILY 11/10/15 08/03/22 [Zestoretic 10-12.5] Omeprazole [PriLOSEC] 20 mg PO DAILY 11/10/15 08/03/22 Vit C/E/Zn/Coppr/Lutein/Zeaxan 1 cap PO DAILY 11/10/15 08/03/22 [Preservision Areds 2 Softgel] Albuterol Sulfate [Albuterol 2 puff PO RT-Q6H PRN 08/03/22 08/03/22 Sulfate Hfa] Aspirin EC [Ecotrin Low Dose] 81 mg PO DAILY 08/03/22 08/03/22 Fexofenadine HCl [Krista Allergy] 180 mg PO DAILY 08/03/22 08/03/22 Naproxen Sodium [Aleve] 220 mg PO BID PRN 08/03/22 08/03/22 Allergies Allergy/AdvReac Type Severity Reaction Status Date / Time No Known Allergies Allergy Verified 08/03/22 13:13 Review of Systems ROS Statement: Those systems with pertinent positive or pertinent negative responses have been documented in the HPI. ROS Other: All systems not noted in ROS Statement are negative. Past Medical History Past Medical History: Eye Disorder, GERD/Reflux, Hearing Disorder / Deafness, Hypertension, Osteoarthritis (OA) Additional Past Medical History / Comment(s): macular degeneration, leaky aortic valve-stable, dr. jones History of Any Multi-Drug Resistant Organisms: None Reported Past Surgical History: Appendectomy, Cholecystectomy, Heart Catheterization, Hernia Repair, Joint Replacement, Orthopedic Surgery Additional Past Surgical History / Comment(s): ruptured tendon repair right ankl e/foot, recent cataract surg-WITH IMPLANTS, TOTAL LEFT KNEE , Past Anesthesia/Blood Transfusion Reactions: No Reported Reaction Past Psychological History: No Psychological Hx Reported Past Alcohol Use History: None Reported Past Drug Use History: None Reported - Past Family History Mother Sister(s) Family Medical History: Cancer Father Family Medical History: Cancer Mother Family Medical History: Cancer Sister(s) Family Medical History: Cancer General Exam Limitations: no limitations General appearance: alert, in no apparent distress Head exam: Present: atraumatic, normocephalic, normal inspection Eye exam: Present: normal appearance, PERRL, EOMI. Absent: scleral icterus, conjunctival injection, periorbital swelling ENT exam: Present: normal exam, normal oropharynx, mucous membranes moist Neck exam: Present: normal inspection, full ROM. Absent: tenderness, meningismus, lymphadenopathy Respiratory exam: Present: wheezes, rales. Absent: normal lung sounds bilaterally, respiratory distress, rhonchi, stridor Cardiovascular Exam: Present: tachycardia, irregular rhythm, normal heart sounds. Absent: regular rate, normal rhythm, systolic murmur, diastolic murmur, rubs, gallop, clicks GI/Abdominal exam: Present: soft, normal bowel sounds. Absent: distended, tenderness, guarding, rebound, rigid Neurological exam: Present: alert Skin exam: Present: warm, dry, intact, normal color. Absent: rash Course Vital Signs 08/03/22 08/03/22 08/03/22 12:53 13:30 14:05 Temperature 98.1 F Pulse Rate 139 H 144 H 117 H Pulse Rate [ 147 H [employer] ] Respiratory 18 19 17 Rate Blood Pressure 111/56 142/99 130/69 O2 Sat by Pulse 93 L 94 L 93 L Oximetry EKG Findings - EKG Comments: EKG Findings:: EKG performed at 20:02 A. fib with RVR, rate 155/110 QT/QTC 231/318 - EKG Results: EKG: interpreted by DONNA Medical Decision Making - Medical Decision Making Was pt. sent in by a medical professional or institution (, PA, VALVE REPAIRER, urgent care, hospital, or assisted...) When possible be specific @ -Dr. Weems PCP sent in for A. fib Did you speak to anyone other than the patient for history (EMS, parent, family, police, friend...)? What history was obtained from this source @ -No Did you review nursing and triage notes (agree or disagree)? Why? @ -I reviewed and agree with nursing and triage notes Were old charts reviewed (outside hosp., previous admission, EMS record, old EKG, old radiological studies, urgent care reports/EKG's, assisted records)? Report findings @ -No old charts were reviewed Differential Diagnosis (chest pain, altered mental status, abdominal pain women, abdominal pain men, vaginal bleeding, weakness, fever, dyspnea, syncope, headache, dizziness, GI bleed, back pain, seizure, CVA, palpatations, mental health, musculoskeletal)? @ -nDifferential Palpitations Ventricular arrhythmias, atrial arrhythmias, myocardial infarction, anemia, thyrotoxicosis, electrolyte imbalance, hypokalemia, pulmonary embolism, pulmonary disease, drugs, alcohol, anxiety, stress.... This is not meant to be an all-inclusive list. EKG interpreted by me (3pts min.). @ -As above X-rays interpreted by me (1pt min.). @ -Chest x-ray shows COPD, pulmonary fibrotic changes CT interpreted by me (1pt min.). @ -None done U/S interpreted by me (1pt. min.). @ -None done What testing was considered but not performed or refused? (CT, X-rays, U/S, lab s)? Why? @ -None What meds were considered but not given or refused? Why? @ -None Did you discuss the management of the patient with other professionals (professionals i.e. , AISSATOU, VALVE REPAIRER, lab, RT, psych nurse, social security benefits interviewer, appraiser irrigation tax, teacher, information management officer, director case)? Give summary @ - sheet for admission with Cardizem drip, cardiology evaluation further close monitoring management medications. Was smoking cessation discussed for >3mins.? @ -No Was critical care preformed (if so, how long)? @ -35 Were there social determinants of health that impacted care today? How? (Homelessness, low income, unemployed, alcoholism, drug addiction, transportation, low edu. Level, literacy, decrease access to med. care, fdc, rehab)? @ -No Was there de-escalation of care discussed even if they declined (Discuss DNR or withdrawal of care, Hospice)? DNR status @ -No What co-morbidities impacted this encounter? (DM, HTN, Smoking, COPD, CAD, Cancer, CVA, ARF, Chemo, Hep., AIDS, mental health diagnosis, sleep apnea, morbid obesity)? @ -COPD Was patient admitted / discharged? Hospital course, mention meds given and route, prescriptions, significant lab abnormalities, going to OR and other pertinent info. @ -Admitted patient's found to be in A. fib with RVR patient labs are e ssentially unremarkable. Patient has chronic changes on x-ray. Patient started on heparin, Cardizem. Patient be admitted to hospitalist with cardiology consult. Undiagnosed new problem with uncertain prognosis? @ -No Drug Therapy requiring intensive monitoring for toxicity (Heparin, Nitro, Insulin, Cardizem)? @ -Cardizem, heparin Were any procedures done? @ -No Diagnosis/symptom? @ -A. fib RVR Acute, or Chronic, or Acute on Chronic? @ -Acute Uncomplicated (without systemic symptoms) or Complicated (systemic symptoms)? @ -Complicated Side effects of treatment? @ -No Exacerbation, Progression, or Severe Exacerbation? @ -No Poses a threat to life or bodily function? How? (Chest pain, [place], HI, pneumonia, PE, COPD, DKA, ARF, appy, cholecystitis, CVA, Diverticulitis, Homicidal, Suicidal, threat to staff... and all critical care pts) @ -This risk for cardiac arrest - Lab Data Result diagrams: 08/03/22 13:23 08/03/22 13:23 Lab Results 08/03/22 08/03/22 08/03/22 Range/Units 13:23 13:23 13:23 WBC 7.8 (3.8-10.6) k/uL RBC 5.38 (4.30-5.90) m/uL Hgb 15.1 (13.0-17.5) gm/dL Hct 48.1 (39.0-53.0) % MCV 89.3 (80.0-100.0) fL MCH 28.1 (25.0-35.0) pg MCHC 31.4 (31.0-37.0) g/dL RDW 14.3 (11.5-15.5) % Plt Count 272 (150-450) k/uL MPV 8.2 Neutrophils % 78 % Lymphocytes % 11 % Monocytes % 7 % Eosinophils % 2 % Basophils % 0 % Neutrophils # 6.1 (1.3-7.7) k/uL Lymphocytes # 0.8 L (1.0-4.8) k/uL Monocytes # 0.5 (0-1.0) k/uL Eosinophils # 0.1 (0-0.7) k/uL Basophils # 0.0 (0-0.2) k/uL PT 11.3 (9.0-12.0) sec INR 1.1 (<1.2) APTT 25.2 (22.0-30.0) sec Sodium 141 (137-145) mmol/L Potassium 4.2 (3.5-5.1) mmol/L Chloride 102 (98-107) mmol/L Carbon Dioxide 27 (22-30) mmol/L Anion Gap 12 mmol/L BUN 26 H (9-20) mg/dL Creatinine 0.66 (0.66-1.25) mg/dL Est GFR (CKD-EPI)AfAm >90 (>60 ml/min/1.73 sqM) Est GFR (CKD-EPI)NonAf >90 (>60 ml/min/1.73 sqM) Glucose 110 H (74-99) mg/dL Calcium 8.8 (8.4-10.2) mg/dL Magnesium 2.0 (1.6-2.3) mg/dL Total Bilirubin 0.9 (0.2-1.3) mg/dL AST 38 (17-59) U/L ALT 32 (4-49) U/L Alkaline Phosphatase 88 (38-126) U/L Troponin I (0.000-0.034) ng/mL Total Protein 7.6 (6.3-8.2) g/dL Albumin 4.3 (3.5-5.0) g/dL 08/03/22 Range/Units 13:23 WBC (3.8-10.6) k/uL RBC (4.30-5.90) m/uL Hgb (13.0-17.5) gm/dL Hct (39.0-53.0) % MCV (80.0-100.0) fL MCH (25.0-35.0) pg MCHC (31.0-37.0) g/dL RDW (11.5-15.5) % Plt Count (150-450) k/uL MPV Neutrophils % % Lymphocytes % % Monocytes % % Eosinophils % % Basophils % % Neutrophils # (1.3-7.7) k/uL Lymphocytes # (1.0-4.8) k/uL Monocytes # (0-1.0) k/uL Eosinophils # (0-0.7) k/uL Basophils # (0-0.2) k/uL PT (9.0-12.0) sec INR (<1.2) APTT (22.0-30.0) sec Sodium (137-145) mmol/L Potassium (3.5-5.1) mmol/L Chloride (98-107) mmol/L Carbon Dioxide (22-30) mmol/L Anion Gap mmol/L BUN (9-20) mg/dL Creatinine (0.66-1.25) mg/dL Est GFR (CKD-EPI)AfAm (>60 ml/min/1.73 sqM) Est GFR (CKD-EPI)NonAf (>60 ml/min/1.73 sqM) Glucose (74-99) mg/dL Calcium (8.4-10.2) mg/dL Magnesium (1.6-2.3) mg/dL Total Bilirubin (0.2-1.3) mg/dL AST (17-59) U/L ALT (4-49) U/L Alkaline Phosphatase (38-126) U/L Troponin I <0.012 (0.000-0.034) ng/mL Total Protein (6.3-8.2) g/dL Albumin (3.5-5.0) g/dL Critical Care Time Critical Care Time: Yes Total Critical Care Time: 35 Disposition Clinical Impression: Atrial fibrillation with RVR Disposition: ADMITTED IP TO THIS HOSP Condition: Fair Referrals: Jonah Weems III, MD [Primary Care Provider] - 1-2 days Time of Disposition: 14:48
--- NOTE | 2022-08-03 13:38 | XR ---
EXAMINATION TYPE: XR chest 2V DATE OF EXAM: 08/03/2022 COMPARISON: NONE TECHNIQUE: PA and lateral views submitted. HISTORY: Shortness of breath FINDINGS: There is coarsened interstitium compatible pulmonary fibrosis and there is pleural-based thickening b ilaterally. No overt failure. Heart size upper limits of normal. Mediastinum is somewhat prominent is prominence of the hilum. Atherosclerotic change aorta. No focal pneumonia. Tiny nodule subcentimeter left lung base is suspected. Retrocardiac density noted. IMPRESSION: 1. Recommend correlation for COPD, mild pulmonary fibrosis and pulmonary arterial hypertension. 2. Cardiomegaly with no overt failure or focal pneumonia 3. Suspect small hiatal hernia and subcentimeter left lower lobe pulmonary nodule.
[2022-08-03] MEDS ORDERED: DILTIAZEM DRIP BOLUS FROM BAG 1 MG SOLN IV ONE ×2 (13:46→16:58)
[2022-08-03] MEDS: DILTIAZEM 125 MG in SODIUM CHLORIDE 0.9% 100 ML IV SCH ×2 (14:07→21:23)
[2022-08-03 14:12] LABS: Basophils % (A) 0 %; Eosinophils # (A) 0.1 k/uL (0-0.7); Eosinophils % (A) 2 %; HCT 48.1 % (39.0-53.0); HGB 15.1 gm/dL (13.0-17.5); Lymphocytes # (A) 0.8 k/uL (1.0-4.8); Lymphocytes % (A) 11 %; MCH 28.1 pg (25.0-35.0); MCHC 31.4 g/dL (31.0-37.0); MCV 89.3 fL (80.0-100.0); Mean Platelet Volume 8.2; Monocytes # (A) 0.5 k/uL (0-1.0); Monocytes % (A) 7 %; Neutrophils # (A) 6.1 k/uL (1.3-7.7); Neutrophils % (A) 78 %; Platelet Count 272 k/uL (150-450); RBC 5.38 m/uL (4.30-5.90); RDW 14.3 % (11.5-15.5); WBC 7.8 k/uL (3.8-10.6)
[2022-08-03 14:16] LABS: ALT 32 U/L (4-49); AST 38 U/L (17-59); African American GFR (CKD) >90 (>60 ml/min/1.73 sqM); Albumin 4.3 g/dL (3.5-5.0); Alkaline Phosphatase 88 U/L (38-126); Anion Gap 12 mmol/L; Blood Urea Nitrogen 26 mg/dL (9-20); Calcium 8.8 mg/dL (8.4-10.2); Carbon Dioxide 27 mmol/L (22-30); Chloride 102 mmol/L (98-107); Glucose 110 mg/dL (74-99); Non-African American GFR(CKD) >90 (>60 ml/min/1.73 sqM); Potassium 4.2 mmol/L (3.5-5.1); Sodium 141 mmol/L (137-145); Total Bilirubin 0.9 mg/dL (0.2-1.3); Total Protein 7.6 g/dL (6.3-8.2)
[2022-08-03 14:17] LABS: INR 1.1 (<1.2); Partial Thromboplastin Time 25.2 sec (22.0-30.0); Prothrombin Time 11.3 sec (9.0-12.0)
[2022-08-03] MEDS ORDERED: NITROGLYCERIN SL TABS 0.4 MG TAB SUBLINGUAL PRN (14:56)
[2022-08-03] MEDS ORDERED: HEPARIN SODIUM 1,000 UN/ML (10ML VL) IV PRN (14:56)
[2022-08-03] MEDS ORDERED: FUROSEMIDE 20 MG TAB PO PRN (17:03)
[2022-08-03] MEDS ORDERED: IPRATROPIUM-ALBUTEROL 3 ML NEB INHALATION PRN (17:04)
[2022-08-03] MEDS ORDERED: DEXTROSE 50% SYRINGE 50 ML IVP PRN ×2 (17:05)
[2022-08-03 17:18] LABS: Glucose,Whole Blood 158 mg/dL (70-110)
[2022-08-03] MEDS: IPRATROPIUM-ALBUTEROL 3 ML NEB INHALATION SCH ×2 (17:29→20:40)
[2022-08-03] MEDS: INSULIN ASPART (NovoLOG) 100 UNIT/ML VIAL SQ SCH ×2 (17:42→20:14)
[2022-08-03] MEDS: methylPREDNISolone SOD SUCCI 125 MG/2 ML VIAL IV SCH ×2 (17:43→23:18)
[2022-08-03 20:01] LABS: Glucose,Whole Blood 134 mg/dL (70-110)
[2022-08-03] MEDS: SYMBICORT 160-4.5 MCG INHALER INHALATION SCH (20:40)
--- NOTE | 2022-08-04 03:13 | HP ---
HISTORY AND PHYSICAL CHIEF COMPLAINT: Shortness of breath and some palpitation. HISTORY OF PRESENT ILLNESS: This is an 82-year-old gentleman with a past medical history of multiple medical problems including hypertension, being followed by Dr. Weems in the outpatient setting. The patient has shortness of breath. The patient wanted to be checked in the office, but the patient found atrial fibrillation with rapid ventricular rate in the iPhone application, and which was sent to the doctor's office and the patient was sent to [facility] Emergency Room and was admitted for further evaluation and treatment. The patient takes p.r.n. Lasix. The patient is started on Cardizem and heparin at this time. The troponin is 0.016. The chest x-ray, which I reviewed personally showed some haziness bilaterally. There is no history of any fever, rigors, or chills. NT-proBNP is 1160. PAST MEDICAL HISTORY: Reviewed include hypertension. Rest of the history and rest of the chart is also reviewed. HOME MEDICATIONS: Reviewed include Naprosyn, albuterol. Doses and rest of medications noted. ALLERGIES: None. FAMILY HISTORY: History of cancer. SOCIAL HISTORY: Remote history of smoking. Otherwise, no history of current smoking or alcohol intake. REVIEW OF SYSTEMS: A 14-point review is negative except as mentioned earlier. PHYSICAL EXAMINATION: VITAL SIGNS: Pulse is 120, regular. Blood pressure 137/97, respirations 21. HEENT: Conjunctivae normal. NECK: No JVD. CARDIOVASCULAR: S1-S2 muffled. RESPIRATIONS: Bilateral scattered rhonchi and crackles. Expiratory wheezing also present. ABDOMEN: Soft, nontender. LEGS: No edema. NERVOUS SYSTEM: No focal deficits. SKIN: No ulcer, rash, bleeding. JOINTS: No active deforming arthropathy. LABORATORY DATA: Reviewed. ASSESSMENT: 1. Atrial fibrillation with fast ventricular rate. 2. Chronic obstructive pulmonary disease acute exacerbation. 3. Gastroesophageal reflux disease. 4. Hypertension. 5. History of degenerative joint disease. 6. History of cholecystectomy. RECOMMENDATIONS AND DISCUSSION: This is an 82-year-old gentleman, who presented with multiple complex medical issues. We will monitor the patient closely. Continue with Cardizem. Otherwise, closely follow with Cardiology. I would also recommend intensive bronchodilators, steroids for the COPD acute exacerbation as well. Dr. Gomez also will be consulted and prognosis guarded because of multiple complex medical issues. Discussed with the family at length. Further recommendations to follow. Home medications will be continued after reconciled. MMODL / IJN: [id number] /
[2022-08-04 03:56] LABS: Basophils % (A) 0 %; Eosinophils % (A) 0 %; HCT 42.1 % (39.0-53.0); HGB 13.6 gm/dL (13.0-17.5); Lymphocytes # (A) 0.4 k/uL (1.0-4.8); Lymphocytes % (A) 10 %; MCH 28.6 pg (25.0-35.0); MCHC 32.3 g/dL (31.0-37.0); MCV 88.7 fL (80.0-100.0); Mean Platelet Volume 8.1; Monocytes # (A) 0.1 k/uL (0-1.0); Monocytes % (A) 2 %; Neutrophils # (A) 3.8 k/uL (1.3-7.7); Neutrophils % (A) 87 %; Platelet Count 204 k/uL (150-450); RBC 4.74 m/uL (4.30-5.90); RDW 14.4 % (11.5-15.5); WBC 4.4 k/uL (3.8-10.6)
[2022-08-04 04:28] LABS: African American GFR (CKD) >90 (>60 ml/min/1.73 sqM); Anion Gap 10 mmol/L; Blood Urea Nitrogen 28 mg/dL (9-20); Calcium 8.1 mg/dL (8.4-10.2); Carbon Dioxide 27 mmol/L (22-30); Chloride 101 mmol/L (98-107); Glucose 146 mg/dL (74-99); Non-African American GFR(CKD) >90 (>60 ml/min/1.73 sqM); Potassium 3.9 mmol/L (3.5-5.1); Sodium 138 mmol/L (137-145)
[2022-08-04 06:11] LABS: Glucose,Whole Blood 144 mg/dL (70-110)
[2022-08-04] MEDS: INSULIN ASPART (NovoLOG) 100 UNIT/ML VIAL SQ SCH ×4 (06:18→20:41)
[2022-08-04] MEDS: methylPREDNISolone SOD SUCCI 125 MG/2 ML VIAL IV SCH ×3 (06:20→17:27)
[2022-08-04] MEDS: PANTOPRAZOLE 40 MG TABLET PO SCH (06:20)
[2022-08-04] MEDS: DILTIAZEM 125 MG in SODIUM CHLORIDE 0.9% 100 ML IV SCH (06:20)
[2022-08-04] MEDS ORDERED: LISINOPRIL-HCTZ 10-12.5 MG 1 EACH TAB PO SCH (09:00)
[2022-08-04] MEDS: SYMBICORT 160-4.5 MCG INHALER INHALATION SCH ×2 (09:05→20:03)
[2022-08-04] MEDS: IPRATROPIUM-ALBUTEROL 3 ML NEB INHALATION SCH ×3 (09:06→20:02)
[2022-08-04] MEDS: VIT A,C & E-LUTEIN-MINERALS 1 EACH TAB PO SCH (09:28)
[2022-08-04] MEDS: CALCIUM CARB-VIT D 500 MG-5 MCG TAB PO SCH (09:29)
[2022-08-04] MEDS: ASPIRIN 81 MG PO SCH (09:29)
--- NOTE | 2022-08-04 11:22 | P.CRDCN ---
History of Present Illness Consult date: 08/04/22 Consult reason: atrial fibrillation Chief complaint: shortness of breath History of present illness: History of present illness: Patient is a pleasant 82 male with significant past medical history of hypertension and a "leaky valve" who presented for complaints of shortness of breath and atrial fibrillation. He follows with Dr. Whitley in the office. He reports yesterday his Smart watch alerted him for atrial fibrillation. He was going to go see his doctor for cough and congestion but after he was alerted for a-fib, he came to the Emergency Department. He denies feeling his heart racing. He does feel short of breath and still has a cough and congestion. He does report having some left chest discomfort with coughing. Denies any chest pain. Labs reviewed: Troponin negative 3, BNP 1160, WBC 4.4, hemoglobin 13.6, platelets 204, creatinine 0.57, A1c 5.8. EKG shows atrial fibrillation with RVR 150 beats per minutes, nonspecific ST and T wave changes. Chest x-ray shows cardiomegaly with no other failure or focal pneumonia. He is feeling better this morning, still with mild shortness of breath with activity. Denies any chest pain or pressure. Heart rate not well controlled still [id number] in A. fib . REVIEW OF SYSTEMS: No fever or chills. Reports cough and mild shortness of breath. No diaphoresis. Patient denies headache, dizziness, blurred vision, double vision. Patient denies any stomach discomfort. No nausea, vomiting. No hematochezia. No hematemesis. Denies any black stools or blood in his stools. Denies dysuria or hematuria. No muscle weakness or numbness. No chest pain or pressure. PHYSICAL EXAMINATION: This is a 82-year-old male in no apparent distress at the time of my examination. HEENT: Head is atraumatic, normocephalic. Pupils are equal, round. Sclerae anicteric. Conjunctivae are clear. Mucous membranes of the mouth are moist. Neck is supple. There is no jugular venous distention. No carotid bruit is heard. CHEST EXAMINATION: Lungs are clear to auscultation. No chest wall tenderness is noted on palpation or with deep breathing. HEART EXAMINATION: Irregular rate and rhythm. S1, S2 heard. No murmurs, gallops or rub. ABDOMEN: Soft, nontender. Bowel sounds are heard. No organomegaly noted. EXTREMITIES: 2+ peripheral pulses with no evidence of peripheral edema and no calf tenderness noted. NEUROLOGIC EXAMINATION: Patient is awake, alert and oriented x3. IMPRESSION AND PLAN: Atrial fibrillation w/ RVR, new onset Hypertension Dyspnea PLAN: Rate is not controlled. We will stop Cardizem drip. Start amiodarone 400 mg by mouth twice a day 1 week, 200 mg by mouth twice a day 1 week, then 200 mg by mouth daily. Add Toprol-XL 50 mg daily. Will DC lisinop ril/hydrochlorothiazide. We'll transition heparin drip to Eliquis for stroke prevention given [id number] score 3. Echocardiogram to evaluate heart function and structure. Discussed possible option for cardioversion. We'll continue to monitor. I am dictating on behalf of Dr. Alfredo Bruce's history/physical and assessment/plan. Past Medical History Past Medical History: COPD, Eye Disorder, GERD/Reflux, Hearing Disorder / Deafness, Hypertension, Osteoarthritis (OA) Additional Past Medical History / Comment(s): macular degeneration, leaky aortic valve-stable, drAkash monitors History of Any Multi-Drug Resistant Organisms: None Reported Past Surgical History: Appendectomy, Cholecystectomy, Heart Catheterization, Hernia Repair, Joint Replacement, Orthopedic Surgery Additional Past Surgical History / Comment(s): ruptured tendon repair right ankle/foot, bilateral cataract surg-WITH IMPLANTS, TOTAL B/L KNEE , Past Anesthesia/Blood Transfusion Reactions: No Reported Reaction Past Psychological History: No Psychological Hx Reported Smoking Status: Former smoker Past Alcohol Use History: None Reported Additional Past Alcohol Use History / Comment(s): STARTED SMOKING AT AGE 18 QUIT AT AGE 40 SMOKED 1/2-1ppd Past Drug Use History: None Reported - Past Family History Mother Sister(s) Family Medical History: Cancer Father Family Medical History: Cancer Mother Family Medical History: Cancer Sister(s) Family Medical History: Cancer Medications and Allergies Home Medications Medication Instructions Recorded Confirmed Type Calcium Carbonate/Vitamin D3 1 tab PO DAILY 11/10/15 08/03/22 History [Calcium 600-Vit D3 400 Caplet] Furosemide [Lasix] 20 mg PO DAILY PRN 11/10/15 08/03/22 History Lisinopril-Hctz 10-12.5 mg 1 tab PO DAILY 11/10/15 08/03/22 History [Zestoretic 10-12.5] Omeprazole [PriLOSEC] 20 mg PO DAILY 11/10/15 08/03/22 History Vit C/E/Zn/Coppr/Lutein/Zeaxan 1 cap PO DAILY 11/10/15 08/03/22 History [Preservision Areds 2 Softgel] Albuterol Sulfate [Albuterol 2 puff PO RT-Q6H PRN 08/03/22 08/03/22 History Sulfate Hfa] Aspirin EC [Ecotrin Low Dose] 81 mg PO DAILY 08/03/22 08/03/22 History Fexofenadine HCl [Krista Allergy] 180 mg PO DAILY 08/03/22 08/03/22 History Naproxen Sodium [Aleve] 220 mg PO BID PRN 08/03/22 08/03/22 History Allergies Allergy/AdvReac Type Severity Reaction Status Date / Time No Known Allergies Allergy Verified 08/03/22 13:13 Physical Exam Vitals: Vital Signs Temp Pulse Pulse Resp BP BP Pulse Ox 08/04/22 09:20 112 H 08/04/22 09:06 114 H 97 08/04/22 04:00 98.0 F 91 18 114/71 93 L 08/03/22 23:50 97.9 F 126 H 20 137/79 93 L 08/03/22 20:59 112 H 08/03/22 20:41 110 H 08/03/22 20:00 98.6 F 115 H 20 144/78 94 L 08/03/22 18:43 97.7 F 115 H 20 132/72 93 L 08/03/22 17:51 98.1 F 114 H 20 142/71 93 L 08/03/22 17:39 104 H 08/03/22 17:36 115 H 08/03/22 17:32 106 H 08/03/22 16:57 126 H 17 135/82 93 L 08/03/22 16:55 146 H 08/03/22 16:49 130 H 19 138/79 93 L 08/03/22 16:30 129 H 21 137/97 94 L 08/03/22 15:52 125 H 17 130/86 95 08/03/22 15:40 114 H 21 127/68 94 L 08/03/22 15:35 121 H 20 100/61 94 L 08/03/22 15:00 97.9 F 126 H 19 123/68 94 L 08/03/22 14:05 117 H 17 130/69 93 L 08/03/22 13:30 144 H 147 H 19 142/99 94 L 08/03/22 12:53 98.1 F 139 H 18 111/56 93 L Intake and Output 08/03/22 08/04/22 08/04/22 22:59 06:59 14:59 Intake Total 413.432 214.439 420 Balance 413.432 214.439 420 Intake: IV 10 Invasive Line 1 10 Intake, IV Titration 163.432 214.439 Amount Diltiazem 125 mg In 87.083 125 Sodium Chloride 0.9% 100 ml @ 5 MG/HR 5 mls/hr IV .Q24H [facility] Rx#:[id number] Heparin Sod,Pork in 0.45% 76.349 89.439 NaCl 25,000 unit In 0.45 % NaCl 1 250ml.bag @ 9 UNITS/KG/HR 10.002 mls/hr IV .Q24H [facility] Rx#: [id number] Oral 240 420 Other: Voiding Method Toilet Toilet # Voids 1 2 Weight 111.13 kg Results 08/04/22 03:27 08/04/22 03:27 Cardiac Enzymes 08/03/22 08/03/22 08/03/22 Range/Units 13:23 13:23 16:19 AST 38 (17-59) U/L Troponin I <0.012 0.016 (0.000-0.034) ng/mL 08/03/22 Range/Units 19:38 AST (17-59) U/L Troponin I <0.012 (0.000-0.034) ng/mL Coagulation 08/03/22 08/03/22 08/03/22 Range/Units 13:23 16:19 19:38 PT 11.3 (9.0-12.0) sec APTT 25.2 68.7 H 38.2 H (22.0-30.0) sec 08/04/22 Range/Units 03:27 PT (9.0-12.0) sec APTT 70.5 H (22.0-30.0) sec CBC 08/03/22 08/04/22 Range/Units 13:23 03:27 WBC 7.8 4.4 (3.8-10.6) k/uL RBC 5.38 4.74 (4.30-5.90) m/uL Hgb 15.1 13.6 (13.0-17.5) gm/dL Hct 48.1 42.1 (39.0-53.0) % Plt Count 272 204 (150-450) k/uL Comprehensive Metabolic Panel 08/03/22 08/04/22 Range/Units : 03:27 Sodium 141 138 (137-145) mmol/L Potassium 4.2 3.9 (3.5-5.1) mmol/L Chloride 102 101 (98-107) mmol/L Carbon Dioxide 27 27 (22-30) mmol/L BUN 26 H 28 H (9-20) mg/dL Creatinine 0.66 0.57 L (0.66-1.25) mg/dL Glucose 110 H 146 H (74-99) mg/dL Calcium 8.8 8.1 L (8.4-10.2) mg/dL AST 38 (17-59) U/L ALT 32 (4-49) U/L Alkaline Phosphatase 88 (38-126) U/L Total Protein 7.6 (6.3-8.2) g/dL Albumin 4.3 (3.5-5.0) g/dL Current Medications Generic Name Dose Route Start Last Admin Trade Name Freq PRN Reason Stop Dose Admin Albuterol/Ipratropium 3 ml 08/03/22 17:04 08/04/22 09:06 Ipratropium-Albuterol 3 Ml Neb INHALATION 3 ml RT-TID ERICH Administration Albuterol/Ipratropium 3 ml 08/03/22 17:04 Ipratropium-Albuterol 3 Ml Neb INHALATION RT-TID PRN Shortness Of Breath Or Wheezing Aspirin 81 mg 08/04/22 09:00 08/04/22 09:29 Aspirin 81 Mg PO 81 mg DAILY ERICH Administration Budesonide/Formoterol Fumarate 2 puff 08/03/22 20:00 08/04/22 09:05 Symbicort 160-4.5 Mcg Inhaler INHALATION 2 puff RT-BID ERICH Administration Calcium Carbonate 1 each 08/04/22 09:00 08/04/22 09:29 Calcium Carb-Vit D 500 Mg-5 Mcg Tab PO 1 each DAILY ERICH Administration Dextrose/Water 50 ml 08/03/22 17:05 Dextrose 50% Syringe 50 Ml IVP PER PROTOCOL PRN Hypoglycemia Protocol Dextrose/Water 25 ml 08/03/22 17:05 Dextrose 50% Syringe 50 Ml IVP PER PROTOCOL PRN Hypoglycemia Protocol Furosemide 20 mg 08/03/22 17:03 Furosemide 20 Mg Tab PO DAILY PRN leg swelling Lisinopril/HCTZ 1 each 08/04/22 09:00 08/04/22 09:29 Lisinopril-Hctz 10-12.5 Mg 1 Each Tab PO 1 each DAILY ERICH Administration Heparin Sodium (Porcine) 0 unit 08/03/22 14:56 08/03/22 21:08 Heparin Sodium 1,000 Un/Ml (10ml Vl) IV 2,750 unit Q6HR PRN Administration Low PTT Protocol Heparin Sodium/Sodium Chloride 250 mls @ 10.002 mls/hr 08/03/22 13:15 08/04/22 04:25 25,000 unit/ Sodium Chloride IV 9 units/kg/hr .Q24H ERICH 10.002 mls/hr Titration Protocol 9 UNITS/KG/HR Diltiazem HCl 125 mg/ Sodium 125 mls @ 5 mls/hr 08/03/22 14:00 08/04/22 06:20 Chloride IV 15 mg/hr .Q24H ERICH 15 mls/hr Administration 5 MG/HR Insulin Aspart 0 unit 08/03/22 17:30 08/04/22 06:18 Insulin Aspart (Novolog) 100 Unit/Ml Vial SQ Not Given ACHS ERICH Protocol Methylprednisolone Sodium Succinate 60 mg 08/03/22 18:00 08/04/22 06:20 Methylprednisolone Sod Succi 125 Mg/2 Ml Vial IV 60 mg Q6HR ERICH Administration Multivitamins/Minerals 1 each 08/04/22 09:00 08/04/22 09:28 Vit A,C & Y-Pwhwnd-Sincjaft 1 Each Tab PO 1 each DAILY ERICH Administration Nitroglycerin 0.4 mg 08/03/22 14:56 Nitroglycerin Sl Tabs 0.4 Mg Tab SUBLINGUAL Q5M PRN Chest Pain Pantoprazole Sodium 40 mg 08/04/22 07:30 08/04/22 06:20 Pantoprazole 40 Mg Tablet PO 40 mg [id number]-[id number] ERICH Administration Intake and Output 08/03/22 08/04/22 08/04/22 22:59 06:59 14:59 Intake Total 413.432 214.439 420 Balance 413.432 214.439 420 Intake: IV 10 Invasive Line 1 10 Intake, IV Titration 163.432 214.439 Amount Diltiazem 125 mg In 87.083 125 Sodium Chloride 0.9% 100 ml @ 5 MG/HR 5 mls/hr IV .Q24H [facility] Rx#:[id number] Heparin Sod,Pork in 0.45% 76.349 89.439 NaCl 25,000 unit In 0.45 % NaCl 1 250ml.bag @ 9 UNITS/KG/HR 10.002 mls/hr IV .Q24H [facility] Rx#: [id number] Oral 240 420 Other: Voiding Method Toilet Toilet # Voids 1 2 Weight 111.13 kg 08/04/22 03:27 08/04/22 03:27
[2022-08-04 11:39] LABS: Glucose,Whole Blood 129 mg/dL (70-110)
--- NOTE | 2022-08-04 11:58 | CA ---
Transthoracic Echo Report Name: Manolo Hernandez Age: 82 Gender: M : 1940 Exam Date: 08/04/2022 09:40 Exam Location: [facility] Ht (in): 75 Wt (lb): 245 Ordering Physician: Boom Anguiano Attending/Referring Phys: [id number], Silvio Roustabout Crew Leader Emily Shaw, [facility] Procedure CPT: Indications: afib Cardiac Hx: Technical Quality: Fair Contrast 1: Total Dose (mL): Contrast 2: Total Dose (mL): MEASUREMENTS (Male / Female) Normal Values 2D ECHO LV Diastolic Diameter PLAX 5.5 cm 4.2 - 5.9 / 3.9 - 5.3 cm LV Systolic Diameter PLAX 3.1 cm IVS Diastolic Thickness 1.1 cm 0.6 - 1.0 / 0.6 - 0.9 cm LVPW Diastolic Thickness 1.1 cm 0.6 - 1.0 / 0.6 - 0.9 cm LV Relative Wall Thickness 0.4 RV Internal Dim ED PLAX 3.7 cm LA Systolic Diameter LX 3.8 cm 3.0 - 4.0 / 2.7 - 3.8 cm LA Volume 67.7 cm??? 18 - 58 / 22 - 52 cm??? M-MODE Aortic Root Diameter MM 4.4 cm MV E Point Septal Separation 0.6 cm AV Cusp Separation MM 2.3 cm DOPPLER AV Peak Velocity 181.7 cm/s AV Peak Gradient 13.2 mmHg AI Peak Velocity 350.9 cm/s AI Peak Gradient 49.3 mmHg AI Pressure Half Time 310.1 ms MV Area PHT 7.3 cm??? MV Deceleration Time 123.2 ms TR Peak Velocity 263.0 cm/s TR Peak Gradient 27.7 mmHg Right Ventricular Systolic Press 32.7 mmHg FINDINGS Left Ventricle Left ventricular ejection fraction is estimated at 55-60 %. Left ventricular cavity size normal. Left ventricular wall thickness normal. Normal left ventricular wall motion. Right Ventricle Mild right ventricular dilatation. Right ventricular systolic pressure within normal limits. Right Atrium Normal right atrial size. Left Atrium Mildly increased left atrial volume. Mildly increased left atrial area. Mitral Valve Structurally normal mitral valve. No mitral stenosis, regurgitation or prolapse. Aortic Valve Trileaflet aortic valve. Mild aortic regurgitation. Tricuspid Valve Tricuspid valve not well visualized. Mild tricuspid regurgitation. Pulmonic Valve Structurally normal pulmonic valve. No pulmonic regurgitation. Pericardium Normal pericardium. No pericardial effusion. Aorta Moderate aortic dilatation at the level of the sinuses of valsalva 44 mm CONCLUSIONS Normal LV systolic function. Mild aortic insufficiency Previewed by: Dr. Saroj Wright MD (Electronically Signed) Final Date: 04 August 2022 11:57
[2022-08-04] MEDS: DOXYCYCLINE 100 MG CAP PO SCH ×2 (13:05→21:16)
[2022-08-04] MEDS: AMIODARONE 200 MG TAB PO SCH ×2 (13:05→21:16)
[2022-08-04] MEDS: METOPROLOL SUCCINATE (ER) 50 MG TAB.ER.24H PO SCH (13:06)
[2022-08-04] MEDS: HEPARIN SOD,PORK IN 0.45% NACL 25,000 UNIT in 0.45% NACL 1 250ML.BAG IV SCH (13:30)
--- NOTE | 2022-08-04 13:53 | P.CNPUL ---
History of Present Illness Consult date: 08/04/22 Requesting physician: Eleazar E Evelin Reason for consult: dyspnea, COPD, abnormal CXR/CT Chief complaint: Shortness of breath, palpitation History of present illness: This is a very pleasant 82-year-old male patient with a known history of hearing disorder, hypertension, gastroesophageal reflux disease, macular degeneration former smoker, COPD. He has had a one-week history of increasing shortness of breath, cough congestion and hoarseness green sputum. He also had and alert on his eye phone about a fast heart rate. He saw his PCP and was found to be in new onset atrial fibrillation and was sent here to the emergency room yesterday for the same. EKG did reveal atrial fibrillation with a rapid ventricular response. He was initiated on a heparin drip. Cardizem drip at 15 mg an hour. Echocardiogram reveals preserved left ventricular systolic function with ejection fraction 55-60%. Mild aortic insufficiency. Chest x-ray revealed evidence of COPD with some mild pulmonary fibrosis and pulmonary arterial hypertension. There is cardiomegaly but no overt failure or focal pneumonia. White count 4.4. Hemoglobin 13.6. Platelets 204. Sodium 138. Potassium 3.9. Bicarb 27. BUN 28. Creatinine 0.57. Glucose 146. He is seen today in consultation on the selective care unit. He is currently sitting up in bed. Awake and alert in no acute distress. He has a loose nonproductive cough currently. He does have some hoarseness. He is wheezing. He denies any hemoptysis. Denies any recent weight loss. He's been initiated on DuoNeb inhalations, Symbicort, IV Solu-Medrol. Review of Systems REVIEW OF SYSTEMS: CONSTITUTIONAL: Denies any recent significant weight loss or weight gain. EYES: Denies change in vision. EARS, NOSE, MOUTH, THROAT: Denies headaches, denies sore throat. CARDIOVASCULAR: Positive for palpitations, no chest pain or syncopal episodes. RESPIRATORY: As above for shortness of breath, cough, congestion no hemoptysis. GASTROINTESTINAL: Denies change in appetite, denies abdominal pain GENITOURINARY: Denies hematuria, denies infections. MUSKULOSKELETAL: Denies pain, denies swelling. INTEGUMENTARY: Denies rash, denies eczema. NEUROLOGICAL: Denies recent memory loss, no recent seizure activity. PSYCHIATRIC: Denies anxiety, denies depression. HEMATOLOGIC/LYMPHATIC: Denies anemia, denies enlarged lymph nodes. Past Medical History Past Medical History: COPD, Eye Disorder, GERD/Reflux, Hearing Disorder / Deafness, Hypertension, Osteoarthritis (OA) Additional Past Medical History / Comment(s): macular degeneration, leaky aortic valve-stable, dr. jones History of Any Multi-Drug Resistant Organisms: None Reported Past Surgical History: Appendectomy, Cholecystectomy, Heart Catheterization, Hernia Repair, Joint Replacement, Orthopedic Surgery Additional Past Surgical History / Comment(s): ruptured tendon repair right ankle/foot, bilateral cataract surg-WITH IMPLANTS, TOTAL B/L KNEE , Past Anesthesia/Blood Transfusion Reactions: No Reported Reaction Past Psychological History: No Psychological Hx Reported Smoking Status: Former smoker Past Alcohol Use History: None Reported Additional Past Alcohol Use History / Comment(s): STARTED SMOKING AT AGE 18 QUIT AT AGE 40 SMOKED 1/2-1ppd Past Drug Use History: None Reported - Past Family History Mother Sister(s) Family Medical History: Cancer Father Family Medical History: Cancer Mother Family Medical History: Cancer Sister(s) Family Medical History: Cancer Medications and Allergies Home Medications Medication Instructions Recorded Confirmed Type Calcium Carbonate/Vitamin D3 1 tab PO DAILY 11/10/15 08/03/22 History [Calcium 600-Vit D3 400 Caplet] Furosemide [Lasix] 20 mg PO DAILY PRN 11/10/15 08/03/22 History Lisinopril-Hctz 10-12.5 mg 1 tab PO DAILY 11/10/15 08/03/22 History [Zestoretic 10-12.5] Omeprazole [PriLOSEC] 20 mg PO DAILY 11/10/15 08/03/22 History Vit C/E/Zn/Coppr/Lutein/Zeaxan 1 cap PO DAILY 11/10/15 08/03/22 History [Preservision Areds 2 Softgel] Albuterol Sulfate [Albuterol 2 puff PO RT-Q6H PRN 08/03/22 08/03/22 History Sulfate Hfa] Aspirin EC [Ecotrin Low Dose] 81 mg PO DAILY 08/03/22 08/03/22 History Fexofenadine HCl [Krista Allergy] 180 mg PO DAILY 08/03/22 08/03/22 History Naproxen Sodium [Aleve] 220 mg PO BID PRN 08/03/22 08/03/22 History Allergies Allergy/AdvReac Type Severity Reaction Status Date / Time No Known Allergies Allergy Verified 08/03/22 13:13 Physical Exam Vitals: Vital Signs Temp Pulse Pulse Resp BP BP Pulse Ox 08/04/22 09:20 112 H 08/04/22 09:06 114 H 97 08/04/22 08:00 97.4 F L 107 H 18 157/77 93 L 08/04/22 04:00 98.0 F 91 18 114/71 93 L 08/03/22 23:50 97.9 F 126 H 20 137/79 93 L 08/03/22 20:59 112 H 08/03/22 20:41 110 H 08/03/22 20:00 98.6 F 115 H 20 144/78 94 L 08/03/22 18:43 97.7 F 115 H 20 132/72 93 L 08/03/22 17:51 98.1 F 114 H 20 142/71 93 L 08/03/22 17:39 104 H 08/03/22 17:36 115 H 08/03/22 17:32 106 H 08/03/22 16:57 126 H 17 135/82 93 L 08/03/22 16:55 146 H 08/03/22 16:49 130 H 19 138/79 93 L 08/03/22 16:30 129 H 21 137/97 94 L 08/03/22 15:52 125 H 17 130/86 95 08/03/22 15:40 114 H 21 127/68 94 L 08/03/22 15:35 121 H 20 100/61 94 L 08/03/22 15:00 97.9 F 126 H 19 123/68 94 L 08/03/22 14:05 117 H 17 130/69 93 L Intake and Output 08/03/22 08/04/22 08/04/22 22:59 06:59 14:59 Intake Total 413.432 214.439 420 Balance 413.432 214.439 420 Intake: IV 10 Invasive Line 1 10 Intake, IV Titration 163.432 214.439 Amount Diltiazem 125 mg In 87.083 125 Sodium Chloride 0.9% 100 ml @ 5 MG/HR 5 mls/hr IV .Q24H [facility] Rx#:[id number] Heparin Sod,Pork in 0.45% 76.349 89.439 NaCl 25,000 unit In 0.45 % NaCl 1 250ml.bag @ 9 UNITS/KG/HR 10.002 mls/hr IV .Q24H [facility] Rx#: [id number] Oral 240 420 Other: Voiding Method Toilet Toilet # Voids 1 2 Weight 111.13 kg GENERAL EXAM: Alert, very pleasant 82-year-old male patient, on room air, comfortable in no apparent distress. HEAD: Normocephalic. EYES: Normal reaction of pupils, equal size. NOSE: Clear with pink turbinates. THROAT: No erythema or exudates. NECK: No masses, no JVD. CHEST: No chest wall deformity. LUNGS: Equal air entry with bilateral end expiratory wheeze, few scattered rhonchi. CVS: S1 and S2 normal with no audible murmur, irregular rhythm. ABDOMEN: No hepatosplenomegaly, normal bowel sounds, no guarding or rigidity. SPINE: No scoliosis or deformity SKIN: No rashes CENTRAL NERVOUS SYSTEM: No focal deficits, tone is normal in all 4 extremities. EXTREMITIES: There is no peripheral edema. No clubbing, no cyanosis. Peripheral pulses are intact. Results - Laboratory Findings CBC and BMP: 08/04/22 03:27 08/04/22 03:27 PT/INR, D-dimer PT 11.3 sec (9.0-12.0) 08/03/22 13:23 INR 1.1 (<1.2) 08/03/22 13:23 Abnormal lab findings: Abnormal Labs 08/03/22 08/03/22 08/03/22 13:23 13:23 16:19 Lymphocytes # 0.8 L APTT 68.7 H BUN 26 H Creatinine Glucose 110 H POC Glucose (mg/dL) Calcium 08/03/22 08/03/22 08/03/22 17:12 19:38 20:00 Lymphocytes # APTT 38.2 H BUN Creatinine Glucose POC Glucose (mg/dL) 158 H 134 H Calcium 08/04/22 08/04/22 08/04/22 03:27 03:27 03:27 Lymphocytes # 0.4 L APTT 70.5 H BUN 28 H Creatinine 0.57 L Glucose 146 H POC Glucose (mg/dL) Calcium 8.1 L 08/04/22 08/04/22 08/04/22 06:09 10:05 11:37 Lymphocytes # APTT 51.3 H BUN Creatinine Glucose POC Glucose (mg/dL) 144 H 129 H Calcium - Diagnostic Findings Chest x-ray: image reviewed Assessment and Plan Assessment: Acute hypoxemic respiratory failure secondary to an exacerbation of chronic obstructive pulmonary disease complicated by acute tracheobronchitis. Pro- calcitonin pending New-onset atrial fibrillation with a rapid ventricular response. Currently on a heparin drip initiated, Cardizem drip Former smoker Hypertension Gastroesophageal reflux disease Intermittent lower extremity edema with diuretics as needed in the outpatient setting Hearing disorder Macular degeneration Plan: The patient was seen and evaluated Chest x-ray, echocardiogram labs and medications reviewed Continue Symbicort, albuterol, IV Solu-Medrol Add doxycycline Procalcitonin pending Cardiology following Remains on a heparin drip We'll continue to follow and make further recommendations based on his clinical status I have personally seen and examined the patient, performed the documentation and the assessment and plan as written. Number of minutes spent on the visit: 20.
[2022-08-04 16:22] LABS: Glucose,Whole Blood 156 mg/dL (70-110)
[2022-08-04 20:13] LABS: Glucose,Whole Blood 122 mg/dL (70-110)
[2022-08-05] MEDS: methylPREDNISolone SOD SUCCI 125 MG/2 ML VIAL IV SCH ×4 (00:01→17:18)
[2022-08-05 05:54] LABS: Glucose,Whole Blood 154 mg/dL (70-110)
[2022-08-05] MEDS: PANTOPRAZOLE 40 MG TABLET PO SCH (06:20)
[2022-08-05] MEDS: INSULIN ASPART (NovoLOG) 100 UNIT/ML VIAL SQ SCH ×4 (06:21→21:16)
--- NOTE | 2022-08-05 07:42 | PN ---
PROGRESS NOTE DATE OF SERVICE: 08/04/2022 SUBJECTIVE: This is an 82-year-old gentleman who was admitted with atrial ablation, fast ventricular rate, and also had COPD. Patient was closely monitored. No chest pain, no palpitations, no fever. Cardiology and pulmonology following the patient closely. OBJECTIVE: VITAL SIGNS: Pulse is 112, irregular. Blood pressure 157/77, respirations 18. CHEST: Few scattered rhonchi. CARDIOVASCULAR: S1, S2 irregular. ABDOMEN: Soft. LABORATORY DATA: Reviewed. ASSESSMENT: 1. Atrial fibrillation with fast ventricular rate. 2. Chronic obstructive pulmonary disease acute exacerbation. 3. Gastroesophageal reflux disease. 4. Hypertension. 5. History of DJD. 6. History of cholecystectomy. RECOMMENDATIONS AND DISCUSSION: Recommended to continue current management, continue symptomatic treatment, otherwise at this time I would recommend repeat labs, continue with Cardizem. Closely follow with Cardiology and pulmonology. Further recommendations to follow. MMODL / IJN: [id number] /
[2022-08-05] MEDS: DOXYCYCLINE 100 MG CAP PO SCH (08:16)
[2022-08-05] MEDS: VIT A,C & E-LUTEIN-MINERALS 1 EACH TAB PO SCH (08:16)
[2022-08-05] MEDS: ASPIRIN 81 MG PO SCH (08:16)
[2022-08-05] MEDS: AMIODARONE 200 MG TAB PO SCH ×2 (08:16→21:20)
[2022-08-05] MEDS: CALCIUM CARB-VIT D 500 MG-5 MCG TAB PO SCH (08:16)
[2022-08-05] MEDS: METOPROLOL SUCCINATE (ER) 50 MG TAB.ER.24H PO SCH (08:16)
[2022-08-05 08:18] LABS: Basophils % (A) 0 %; Eosinophils % (A) 0 %; HCT 42.8 % (39.0-53.0); HGB 13.4 gm/dL (13.0-17.5); Lymphocytes # (A) 0.6 k/uL (1.0-4.8); Lymphocytes % (A) 4 %; MCH 28.1 pg (25.0-35.0); MCHC 31.3 g/dL (31.0-37.0); MCV 89.8 fL (80.0-100.0); Mean Platelet Volume 7.9; Monocytes # (A) 0.3 k/uL (0-1.0); Monocytes % (A) 2 %; Neutrophils # (A) 12.5 k/uL (1.3-7.7); Neutrophils % (A) 93 %; Platelet Count 294 k/uL (150-450); RBC 4.77 m/uL (4.30-5.90); RDW 14.2 % (11.5-15.5); WBC 13.5 k/uL (3.8-10.6)
[2022-08-05 08:44] LABS: African American GFR (CKD) >90 (>60 ml/min/1.73 sqM); Anion Gap 9 mmol/L; Blood Urea Nitrogen 30 mg/dL (9-20); Calcium 8.7 mg/dL (8.4-10.2); Carbon Dioxide 27 mmol/L (22-30); Chloride 103 mmol/L (98-107); Glucose 155 mg/dL (74-99); Non-African American GFR(CKD) >90 (>60 ml/min/1.73 sqM); Potassium 4.1 mmol/L (3.5-5.1); Sodium 139 mmol/L (137-145)
[2022-08-05] MEDS: SYMBICORT 160-4.5 MCG INHALER INHALATION SCH ×2 (09:01→20:27)
[2022-08-05] MEDS: IPRATROPIUM-ALBUTEROL 3 ML NEB INHALATION SCH ×3 (09:01→20:27)
[2022-08-05 11:41] LABS: Glucose,Whole Blood 99 mg/dL (70-110)
[2022-08-05] MEDS: HEPARIN SOD,PORK IN 0.45% NACL 25,000 UNIT in 0.45% NACL 1 250ML.BAG IV SCH (12:18)
[2022-08-05] MEDS ORDERED: METOPROLOL SUCCINATE (ER) 25 MG TAB.ER.24H PO STA (13:50)
--- NOTE | 2022-08-05 13:54 | P.PN ---
Subjective Progress Note Date: 08/05/22 Principal diagnosis: Acute hypoxic respiratory failure secondary to acute exacerbation of COPD and tracheobronchitis as well as a new onset atrial fibrillation with RVR This is a very pleasant 82-year-old male patient with a known history of hearing disorder, hypertension, gastroesophageal reflux disease, macular degeneration former smoker, COPD. He has had a one-week history of increasing shortness of breath, cough congestion and hoarseness green sputum. He also had and alert on his eye phone about a fast heart rate. He saw his PCP and was found to be in new onset atrial fibrillation and was sent here to the emergency room yesterday for the same. EKG did reveal atrial fibrillation with a rapid ventricular response. He was initiated on a heparin drip. Cardizem drip at 15 mg an hour. Echocardiogram reveals preserved left ventricular systolic function with eject ion fraction 55-60%. Mild aortic insufficiency. Chest x-ray revealed evidence of COPD with some mild pulmonary fibrosis and pulmonary arterial hypertension. There is cardiomegaly but no overt failure or focal pneumonia. White count 4.4. Hemoglobin 13.6. Platelets 204. Sodium 138. Potassium 3.9. Bicarb 27. BUN 28. Creatinine 0.57. Glucose 146. He is seen today in consultation on the lective care unit. He is currently sitting up in bed. Awake and alert in no acute distress. He has a loose nonproductive cough currently. He does have some hoarseness. He is wheezing. He denies any hemoptysis. Denies any recent weight loss. He's been initiated on DuoNeb inhalations, Symbicort, IV Solu- Medrol. Patient was reevaluated today on 08/05/2022, patient is feeling better, nonethe less he continues to have atrial fibrillation with RVR, patient was placed on amiodarone by etiology. He is also on eliquis. And the patient is receiving metoprolol 75 mg by mouth daily. Pulmonary-aquino the patient remains on bronchodilators, is also on doxycycline. Improved but not quite ready for discharge planning. Labs today showed WBC count of 13.5 hemoglobin 13.4 PTT 49.6 patient was on heparin before eliquis. Electrodes are normal renal profile is normal Objective - Vital Signs Vital signs: Vital Signs Temp 97.9 F 08/05/22 11:39 Pulse 100 08/05/22 13:07 Resp 16 08/05/22 11:41 BP 118/76 08/05/22 11:39 Pulse Ox 95 08/05/22 11:39 FiO2 Intake & Output 08/04/22 08/05/22 08/05/22 18:59 06:59 18:59 Intake Total 864.212 118 Balance 864.212 118 Intake: Intake, IV Titration 84.212 Amount Heparin Sod,Pork in 0.45% 84.212 NaCl 25,000 unit In 0.45 % NaCl 1 250ml.bag @ 9 UNITS/KG/HR 10.002 mls/hr IV .Q24H [facility] Rx#: [id number] Oral 780 118 Other: Voiding Method Toilet # Voids 2 - Exam Physical Exam: Revealed an 82-year-old white male, very pleasant, in no distress, on room air, O2 sats is 95%. Head: Atraumatic normocephalic. HEENT:[Neck is supple.] [No neck masses.] [No thyromegaly.] [No JVD.] Chest: [Diminished breath sound bilaterally no crackles or rhonchi or wheezes Cardiac Exam: Irregular irregular rhythm [Normal S1 and S2, no S3 gallop, no m urmur.] Abdomen: [Soft, nontender, no megaly, no rebound, no guarding, normal bowel sounds.] Extremities: [No clubbing, no edema, no cyanosis.] Neurological Exam: [No focal neurologic deficit.] Alert and oriented 3 focal deficit Psychiatric: Normal mood affect and normal mental status examination. Skin: No rashes - Labs CBC & Chem 7: 08/05/22 07:45 08/05/22 07:45 Labs: Abnormal Lab Results - Last 24 Hours (Table) 08/04/22 08/04/22 08/05/22 Range/Units 16:21 20:12 05:52 WBC (3.8-10.6) k/uL Neutrophils # (1.3-7.7) k/uL Lymphocytes # (1.0-4.8) k/uL APTT (22.0-30.0) sec BUN (9-20) mg/dL Creatinine (0.66-1.25) mg/dL Glucose (74-99) mg/dL POC Glucose (mg/dL) 156 H 122 H 154 H (70-110) mg/dL 08/05/22 08/05/22 08/05/22 Range/Units 07:45 07:45 07:45 WBC 13.5 H (3.8-10.6) k/uL Neutrophils # 12.5 H (1.3-7.7) k/uL Lymphocytes # 0.6 L (1.0-4.8) k/uL APTT 49.6 H (22.0-30.0) sec BUN 30 H (9-20) mg/dL Creatinine 0.64 L (0.66-1.25) mg/dL Glucose 155 H (74-99) mg/dL POC Glucose (mg/dL) (70-110) mg/dL Assessment and Plan Assessment: Impression: Acute hypoxic respiratory failure secondary to acute exacerbation of COPD, acute tracheobronchitis, and atrial fibrillation with RVR/new onset. Benign essential hypertension GERD without esophagitis Former smoker Macular degeneration Recommendation: Continue bronchodilators Continue doxycycline Continue amiodarone and beta blockers Continue Symbicort We'll continue to follow possible discharge planning in the next 24-48 hours Time with Patient: Less than 30
[2022-08-05] MEDS: APIXABAN 5 MG TAB PO SCH (14:11)
--- NOTE | 2022-08-05 15:02 | P.PN ---
Subjective Progress Note Date: 08/05/22 Patient is a pleasant 82 male with significant past medical history of hypertension and a "leaky valve" who presented for complaints of shortness of breath and atrial fibrillation. He follows with Dr. Whitley in the office. He reports yesterday his Smart watch alerted him for atrial fibrillation. He was going to go see his doctor for cough and congestion but after he was alerted for a-fib, he came to the Emergency Department. He denies feeling his heart racing. He does feel short of breath and still has a cough and congestion. He does report having some left chest discomfort with coughing. Denies any chest pain. Labs reviewed: Troponin negative 3, BNP 1160, WBC 4.4, hemoglobin 13.6, platele ts 204, creatinine 0.57, A1c 5.8. EKG shows atrial fibrillation with RVR 150 beats per minutes, nonspecific ST and T wave changes. Chest x-ray shows cardiomegaly with no other failure or focal pneumonia. He is feeling better this morning, still with mild shortness of breath with activity. Denies any chest pain or pressure. Heart rate not well controlled still [id number] in A. fib. 08/05 He is still in a-fib with RVR, HR's 100-130's. Feels ok, denies any chest pains. Still short of breath. ECHO with EF 55-60%, mild aortic insufficiency. PHYSICAL EXAMINATION: This is a 82-year-old male in no apparent distress at the time of my examination. HEENT: Head is atraumatic, normocephalic. Pupils are equal, round. Sclerae anicteric. Conjunctivae are clear. Mucous membranes of the mouth are moist. Neck is supple. There is no jugular venous distention. No carotid bruit is heard. CHEST EXAMINATION: Lungs are clear to auscultation. No chest wall tenderness is noted on palpation or with deep breathing. HEART EXAMINATION: Irregular rate and rhythm. S1, S2 heard. No murmurs, gallops or rub. ABDOMEN: Soft, nontender. Bowel sounds are heard. No organomegaly noted. EXTREMITIES: 2+ peripheral pulses with no evidence of peripheral edema and no calf tenderness noted. NEUROLOGIC EXAMINATION: Patient is awake, alert and oriented x3. IMPRESSION AND PLAN: Atrial fibrillation w/ RVR, new onset Hypertension Dyspnea PLAN: Rate is not controlled. Continue amiodarone 400 mg by mouth twice a day 1 week, 200 mg by mouth twice a day 1 week, then 200 mg by mouth daily. Increase Toprol-XL to 75 mg daily. We'll transition heparin drip to Eliquis for stroke prevention given [id number] score 3. Discussed possible option for cardioversion on Sunday. We'll continue to monitor. I am dictating on behalf of Dr. Alfredo Bruce's history/physical and assessment/plan. Objective - Vital Signs Vital signs: Vital Signs Temp 97.9 F 08/05/22 08:00 Pulse 100 08/05/22 09:13 Resp 16 08/05/22 08:00 BP 126/80 08/05/22 08:00 Pulse Ox 97 08/05/22 09:01 FiO2 Intake & Output 08/04/22 08/05/22 08/05/22 18:59 06:59 18:59 Intake Total 864.212 118 Balance 864.212 118 Intake: Intake, IV Titration 84.212 Amount Heparin Sod,Pork in 0.45% 84.212 NaCl 25,000 unit In 0.45 % NaCl 1 250ml.bag @ 9 UNITS/KG/HR 10.002 mls/hr IV .Q24H [facility] Rx#: [id number] Oral 780 118 Other: Voiding Method Toilet # Voids 2 - Labs CBC & Chem 7: 08/05/22 07:45 08/05/22 07:45 Labs: Abnormal Lab Results - Last 24 Hours (Table) 08/04/22 08/04/22 08/04/22 Range/Units 10:05 11:37 16:21 WBC (3.8-10.6) k/uL Neutrophils # (1.3-7.7) k/uL Lymphocytes # (1.0-4.8) k/uL APTT 51.3 H (22.0-30.0) sec BUN (9-20) mg/dL Creatinine (0.66-1.25) mg/dL Glucose (74-99) mg/dL POC Glucose (mg/dL) 129 H 156 H (70-110) mg/dL 08/04/22 08/05/22 08/05/22 Range/Units 20:12 05:52 07:45 WBC 13.5 H (3.8-10.6) k/uL Neutrophils # 12.5 H (1.3-7.7) k/uL Lymphocytes # 0.6 L (1.0-4.8) k/uL APTT (22.0-30.0) sec BUN (9-20) mg/dL Creatinine (0.66-1.25) mg/dL Glucose (74-99) mg/dL POC Glucose (mg/dL) 122 H 154 H (70-110) mg/dL 08/05/22 08/05/22 Range/Units 07:45 07:45 WBC (3.8-10.6) k/uL Neutrophils # (1.3-7.7) k/uL Lymphocytes # (1.0-4.8) k/uL APTT 49.6 H (22.0-30.0) sec BUN 30 H (9-20) mg/dL Creatinine 0.64 L (0.66-1.25) mg/dL Glucose 155 H (74-99) mg/dL POC Glucose (mg/dL) (70-110) mg/dL
[2022-08-05 16:41] LABS: Glucose,Whole Blood 113 mg/dL (70-110)
--- NOTE | 2022-08-05 19:13 | P.PN ---
Subjective This is a pleasant 82 years old male with multiple medical problems He was sent by his PCP for atrial fibrillation on his EKG His A. fib is a new onset and patient is aware of it. His heart rate still tachycardic around 120, he is currently on amiodarone 400 mg twice a day with plan for taper upon discharge by radiology resident. He is also placed on metoprolol 75 mg daily. Heparin drip switched to Eliquis. His breathing slightly tachypneic but saturating 95% on room air. He remains on subcu Medrol 60 mg on doxycycline for COPD exacerbation Lisinopril and hydrochlorothiazide are on hold consult PT/OT Objective - Vital Signs Vital signs: Vital Signs Temp 97.9 F 08/05/22 11:39 Pulse 120 H 08/05/22 11:41 Resp 16 08/05/22 11:41 BP 118/76 08/05/22 11:39 Pulse Ox 95 08/05/22 11:39 FiO2 Intake & Output 08/04/22 08/05/22 08/05/22 18:59 06:59 18:59 Intake Total 864.212 118 Balance 864.212 118 Intake: Intake, IV Titration 84.212 Amount Heparin Sod,Pork in 0.45% 84.212 NaCl 25,000 unit In 0.45 % NaCl 1 250ml.bag @ 9 UNITS/KG/HR 10.002 mls/hr IV .Q24H [facility] Rx#: [id number] Oral 780 118 Other: Voiding Method Toilet # Voids 2 - Exam GENERAL: The patient is alert and oriented x3, not in any acute distress. Well developed, well nourished. HEENT: Pupils are round and equally reacting to light. EOMI. No scleral icterus. No conjunctival pallor. Normocephalic, atraumatic. No pharyngeal erythema. No thyromegaly. CARDIOVASCULAR: S1 and S2 present. No murmurs, rubs, or gallops. PULMONARY: Chest is clear to auscultation, no wheezing or crackles. ABDOMEN: Soft, nontender, nondistended, normoactive bowel sounds. No palpable organomegaly. MUSCULOSKELETAL: No joint swelling or deformity. EXTREMITIES: No cyanosis, clubbing, or pedal edema. NEUROLOGICAL: Gross neurological examination did not reveal any focal deficits. SKIN: No rashes. no petechiae. - Labs CBC & Chem 7: 08/05/22 07:45 08/05/22 07:45 Labs: Abnormal Lab Results - Last 24 Hours (Table) 08/04/22 08/04/22 08/05/22 Range/Units 16:21 20:12 05:52 WBC (3.8-10.6) k/uL Neutrophils # (1.3-7.7) k/uL Lymphocytes # (1.0-4.8) k/uL APTT (22.0-30.0) sec BUN (9-20) mg/dL Creatinine (0.66-1.25) mg/dL Glucose (74-99) mg/dL POC Glucose (mg/dL) 156 H 122 H 154 H (70-110) mg/dL 08/05/22 08/05/22 08/05/22 Range/Units 07:45 07:45 07:45 WBC 13.5 H (3.8-10.6) k/uL Neutrophils # 12.5 H (1.3-7.7) k/uL Lymphocytes # 0.6 L (1.0-4.8) k/uL APTT 49.6 H (22.0-30.0) sec BUN 30 H (9-20) mg/dL Creatinine 0.64 L (0.66-1.25) mg/dL Glucose 155 H (74-99) mg/dL POC Glucose (mg/dL) (70-110) mg/dL Assessment and Plan Assessment: New-onset A. fib and RVR Acute COPD exacerbation Mild acute hypoxic respiratory failure secondary to above Hypertension Plan: Continue with doxycycline and salmeterol per elevator operator Continue with Eliquis amiodarone and metoprolol per radiology resident Pulmonary and cardiology consult on the case exercise manager consult for Eliquis co-pay Labs and medication were reviewed.. Continue same treatment. Continue with symptomatic treatment. Resume home medication. Monitor labs and vitals. DVT and GI prophylaxis. Further recommendations as per clinical course of the patient DVT prophylaxis: Eliquis GI Prophylaxis: Ppi PT/OT: Pending Prognosis is guarded
[2022-08-05 21:00] LABS: Glucose,Whole Blood 120 mg/dL (70-110)
[2022-08-06] MEDS: DOXYCYCLINE 100 MG CAP PO SCH ×3 (00:54→21:30)
[2022-08-06] MEDS: methylPREDNISolone SOD SUCCI 125 MG/2 ML VIAL IV SCH ×5 (00:54→23:44)
[2022-08-06 06:27] LABS: Glucose,Whole Blood 129 mg/dL (70-110)
[2022-08-06] MEDS: INSULIN ASPART (NovoLOG) 100 UNIT/ML VIAL SQ SCH ×4 (06:39→23:56)
[2022-08-06] MEDS: PANTOPRAZOLE 40 MG TABLET PO SCH (06:42)
[2022-08-06] MEDS: AMIODARONE 200 MG TAB PO SCH ×2 (08:17→21:27)
[2022-08-06] MEDS: CALCIUM CARB-VIT D 500 MG-5 MCG TAB PO SCH (08:17)
[2022-08-06] MEDS: METOPROLOL SUCCINATE (ER) 25 MG TAB.ER.24H PO SCH (08:17)
[2022-08-06] MEDS: VIT A,C & E-LUTEIN-MINERALS 1 EACH TAB PO SCH (08:17)
[2022-08-06] MEDS: APIXABAN 5 MG TAB PO SCH ×2 (08:18→21:27)
[2022-08-06] MEDS: ASPIRIN 81 MG PO SCH (08:18)
[2022-08-06 09:01] LABS: Basophils % (A) 0 %; Eosinophils % (A) 0 %; HCT 44.8 % (39.0-53.0); Lymphocytes # (A) 0.4 k/uL (1.0-4.8); Lymphocytes % (A) 3 %; MCH 27.9 pg (25.0-35.0); MCHC 31.3 g/dL (31.0-37.0); MCV 89.3 fL (80.0-100.0); Mean Platelet Volume 8.4; Monocytes # (A) 0.3 k/uL (0-1.0); Monocytes % (A) 2 %; Neutrophils # (A) 11.9 k/uL (1.3-7.7); Neutrophils % (A) 94 %; Platelet Count 271 k/uL (150-450); RBC 5.01 m/uL (4.30-5.90); RDW 14.6 % (11.5-15.5); WBC 12.7 k/uL (3.8-10.6)
[2022-08-06 09:05] LABS: African American GFR (CKD) >90 (>60 ml/min/1.73 sqM); Anion Gap 12 mmol/L; Blood Urea Nitrogen 32 mg/dL (9-20); Calcium 8.6 mg/dL (8.4-10.2); Carbon Dioxide 25 mmol/L (22-30); Chloride 102 mmol/L (98-107); Glucose 147 mg/dL (74-99); Non-African American GFR(CKD) 87 (>60 ml/min/1.73 sqM); Potassium 4.5 mmol/L (3.5-5.1); Sodium 139 mmol/L (137-145)
[2022-08-06] MEDS: SYMBICORT 160-4.5 MCG INHALER INHALATION SCH ×2 (09:31→21:35)
[2022-08-06] MEDS: IPRATROPIUM-ALBUTEROL 3 ML NEB INHALATION SCH ×3 (09:31→21:35)
[2022-08-06 11:42] LABS: Glucose,Whole Blood 103 mg/dL (70-110)
--- NOTE | 2022-08-06 12:06 | P.PN ---
Subjective Progress Note Date: 08/06/22 Principal diagnosis: Acute hypoxic respiratory failure secondary to acute exacerbation of COPD and tracheobronchitis as well as a new onset atrial fibrillation with RVR This is a very pleasant 82-year-old male patient with a known history of hearing disorder, hypertension, gastroesophageal reflux disease, macular degeneration former smoker, COPD. He has had a one-week history of increasing shortness of breath, cough congestion and hoarseness green sputum. He also had and alert on his eye phone about a fast heart rate. He saw his PCP and was found to be in new onset atrial fibrillation and was sent here to the emergency room yesterday for the same. EKG did reveal atrial fibrillation with a rapid ventricular response. He was initiated on a heparin drip. Cardizem drip at 15 mg an hour. Echocardiogram reveals preserved left ventricular systolic function with eject ion fraction 55-60%. Mild aortic insufficiency. Chest x-ray revealed evidence of COPD with some mild pulmonary fibrosis and pulmonary arterial hypertension. There is cardiomegaly but no overt failure or focal pneumonia. White count 4.4. Hemoglobin 13.6. Platelets 204. Sodium 138. Potassium 3.9. Bicarb 27. BUN 28. Creatinine 0.57. Glucose 146. He is seen today in consultation on the lective care unit. He is currently sitting up in bed. Awake and alert in no acute distress. He has a loose nonproductive cough currently. He does have some hoarseness. He is wheezing. He denies any hemoptysis. Denies any recent weight loss. He's been initiated on DuoNeb inhalations, Symbicort, IV Solu- Medrol. Patient was reevaluated today on 08/05/2022, patient is feeling better, nonethe less he continues to have atrial fibrillation with RVR, patient was placed on amiodarone by etiology. He is also on eliquis. And the patient is receiving metoprolol 75 mg by mouth daily. Pulmonary-aquino the patient remains on bronchodilators, is also on doxycycline. Improved but not quite ready for discharge planning. Labs today showed WBC count of 13.5 hemoglobin 13.4 PTT 49.6 patient was on heparin before eliquis. Electrodes are normal renal profile is normal Reevaluated today on 08/06/2022, clinically the patient is feeling better, nonetheless he continues to have atrial fibrillation with RVR, rate is 125 today, and regular. Occasional cough no wheezing no shortness of breath. Labs today showed relatively normal CBC normal basic metabolic profile normal potassium normal renal profile. Chest x-ray on admission showed no significant acute process. Objective - Vital Signs Vital signs: Vital Signs Temp 97.5 F L 08/06/22 08:00 Pulse 115 H 08/06/22 11:08 Resp 18 08/06/22 11:08 BP 131/65 08/06/22 11:08 Pulse Ox 95 08/06/22 11:08 FiO2 Intake & Output 08/05/22 08/06/22 08/06/22 18:59 06:59 18:59 Intake Total 354 420 Balance 354 420 Intake: Oral 354 420 Other: Voiding Method Toilet # Voids 2 - Exam Physical Exam: Revealed an 82-year-old white male, very pleasant, in no distress, remains on room air Head: Atraumatic normocephalic. HEENT:[Neck is supple.] [No neck masses.] [No thyromegaly.] [No JVD.] Chest: [Diminished breath sound bilaterally no crackles or rhonchi or wheezes Cardiac Exam: Irregular irregular rhythm [Normal S1 and S2, no S3 gallop, no murmur.] Abdomen: [Soft, nontender, no megaly, no rebound, no guarding, normal bowel sounds.] Extremities: [No clubbing, no edema, no cyanosis.] Neurological Exam: [No focal neurologic deficit.] Alert and oriented 3 focal deficit Psychiatric: Normal mood affect and normal mental status examination. Skin: No rashes - Labs CBC & Chem 7: 08/06/22 08:03 08/06/22 08:03 Labs: Abnormal Lab Results - Last 24 Hours (Table) 08/05/22 08/05/22 08/06/22 Range/Units 16:39 20:58 06:24 WBC (3.8-10.6) k/uL Neutrophils # (1.3-7.7) k/uL Lymphocytes # (1.0-4.8) k/uL BUN (9-20) mg/dL Glucose (74-99) mg/dL POC Glucose (mg/dL) 113 H 120 H 129 H (70-110) mg/dL 08/06/22 08/06/22 Range/Units 08:03 08:03 WBC 12.7 H (3.8-10.6) k/uL Neutrophils # 11.9 H (1.3-7.7) k/uL Lymphocytes # 0.4 L (1.0-4.8) k/uL BUN 32 H (9-20) mg/dL Glucose 147 H (74-99) mg/dL POC Glucose (mg/dL) (70-110) mg/dL Assessment and Plan Assessment: Impression: Acute hypoxic respiratory failure secondary to acute exacerbation of COPD, acute tracheobronchitis, and atrial fibrillation with RVR/new onset. Benign essential hypertension GERD without esophagitis Former smoker Macular degeneration Recommendation: Continue bronchodilators Continue doxycycline Continue amiodarone and beta blockers Continue Symbicort Patient was told by cardiology that he may require cardioversion in the next 24 hours if he does not improve. We'll continue to follow Time with Patient: Less than 30
--- NOTE | 2022-08-06 13:26 | P.PN ---
Subjective Progress Note Date: 08/06/22 Patient is a pleasant 82 male with significant past medical history of hypertension and a "leaky valve" who presented for complaints of shortness of breath and atrial fibrillation. He follows with Dr. Whitley in the office. He reports yesterday his Smart watch alerted him for atrial fibrillation. He was going to go see his doctor for cough and congestion but after he was alerted for a-fib, he came to the Emergency Department. He denies feeling his heart racing. He does feel short of breath and still has a cough and congestion. He does report having some left chest discomfort with coughing. Denies any chest pain. Labs reviewed: Troponin negative 3, BNP 1160, WBC 4.4, hemoglobin 13.6, platele ts 204, creatinine 0.57, A1c 5.8. EKG shows atrial fibrillation with RVR 150 beats per minutes, nonspecific ST and T wave changes. Chest x-ray shows cardiomegaly with no other failure or focal pneumonia. He is feeling better this morning, still with mild shortness of breath with activity. Denies any chest pain or pressure. Heart rate not well controlled still [id number] in A. fib. 08/05 He is still in a-fib with RVR, HR's 100-130's. Feels ok, denies any chest pains. Still short of breath. ECHO with EF 55-60%, mild aortic insufficiency. 08/06 Seen and examined. He has no complaints, voice is improving. HR's 120's. Cough has improved. He walked around the unit and did ok other than shortness of breath. PHYSICAL EXAMINATION: This is a 82-year-old male in no apparent distress at the time of my examination. HEENT: Head is atraumatic, normocephalic. Pupils are equal, round. Sclerae an icteric. Conjunctivae are clear. Mucous membranes of the mouth are moist. Neck is supple. There is no jugular venous distention. No carotid bruit is heard. CHEST EXAMINATION: Lungs are clear to auscultation. No chest wall tenderness is noted on palpation or with deep breathing. HEART EXAMINATION: Irregular rate and rhythm. S1, S2 heard. No murmurs, gallops or rub. ABDOMEN: Soft, nontender. Bowel sounds are heard. EXTREMITIES: 2+ peripheral pulses with no evidence of peripheral edema and no ca lf tenderness noted. NEUROLOGIC EXAMINATION: Patient is awake, alert and oriented x3. IMPRESSION AND PLAN: Atrial fibrillation w/ RVR, new onset Hypertension Dyspnea PLAN: Rate is still not well controlled. Continue amiodarone 400 mg by mouth twice a day 1 week, 200 mg by mouth twice a day 1 week, then 200 mg by mouth daily. Toprol-XL to 75 mg daily. Eliquis for stroke prevention given CH [id number] score 3. Discussed option for cardioversion on Sunday. We'll continue to monitor. NPO after midnight for possible JAVAN/Cardioversion tomorrow 08/07. I am dictating on behalf of Dr. Alfredo Bruce's history/physical and assessment/plan. Objective - Vital Signs Vital signs: Vital Signs Temp 97.5 F L 08/06/22 08:00 Pulse 115 H 08/06/22 11:08 Resp 18 08/06/22 11:08 BP 131/65 08/06/22 11:08 Pulse Ox 95 08/06/22 11:08 FiO2 Intake & Output 08/05/22 08/06/22 08/06/22 18:59 06:59 18:59 Intake Total 354 420 Balance 354 420 Intake: Oral 354 420 Other: Voiding Method Toilet # Voids 2 - Labs CBC & Chem 7: 08/06/22 08:03 08/06/22 08:03 Labs: Abnormal Lab Results - Last 24 Hours (Table) 08/05/22 08/05/22 08/06/22 Range/Units 16:39 20:58 06:24 WBC (3.8-10.6) k/uL Neutrophils # (1.3-7.7) k/uL Lymphocytes # (1.0-4.8) k/uL BUN (9-20) mg/dL Glucose (74-99) mg/dL POC Glucose (mg/dL) 113 H 120 H 129 H (70-110) mg/dL 08/06/22 08/06/22 Range/Units 08:03 08:03 WBC 12.7 H (3.8-10.6) k/uL Neutrophils # 11.9 H (1.3-7.7) k/uL Lymphocytes # 0.4 L (1.0-4.8) k/uL BUN 32 H (9-20) mg/dL Glucose 147 H (74-99) mg/dL POC Glucose (mg/dL) (70-110) mg/dL
[2022-08-06] MEDS ORDERED: FUROSEMIDE 10 MG/ML 4 ML VIAL IV STA (13:28)
--- NOTE | 2022-08-06 14:37 | P.PN ---
Subjective This is a pleasant 82 years old male with multiple medical problems He was sent by his PCP for atrial fibrillation on his EKG His A. fib is a new onset and patient is aware of it. His heart rate still tachycardic around 120, he is currently on amiodarone 400 mg twice a day with plan for taper upon discharge by rand maker. He is also placed on metoprolol 75 mg daily. Heparin drip switched to Eliquis. His breathing slightly tachypneic but saturating 95% on room air. He remains on subcu Medrol 60 mg on doxycycline for COPD exacerbation Lisinopril and hydrochlorothiazide are on hold consult PT/OT 08/06/2022 Patient looks pleasant relaxed sitting up in his bed Heart her distal uncontrolled around 115 Currently is on amiodarone 400 mg twice a day and metoprolol 75 mg and Eliquis 5 mg therapeutic dose. cardiology team were considering cardioversion for him on Sunday for his atrial fibrillation. Also he is on Solu-Medrol and doxycycline Objective - Vital Signs Vital signs: Vital Signs Temp 97.5 F L 08/06/22 08:00 Pulse 120 H 08/06/22 09:46 Resp 18 08/06/22 08:00 BP 120/61 08/06/22 08:00 Pulse Ox 97 08/06/22 09:31 FiO2 Intake & Output 08/05/22 08/06/22 08/06/22 18:59 06:59 18:59 Intake Total 354 420 Balance 354 420 Intake: Oral 354 420 Other: Voiding Method Toilet # Voids 2 - Exam GENERAL: The patient is alert and oriented x3, not in any acute distress. Well developed, well nourished. HEENT: Pupils are round and equally reacting to light. EOMI. No scleral icterus. No conjunctival pallor. Normocephalic, atraumatic. No pharyngeal erythema. No thyromegaly. CARDIOVASCULAR: S1 and S2 present. No murmurs, rubs, or gallops. PULMONARY: Chest is clear to auscultation, no wheezing or crackles. ABDOMEN: Soft, nontender, nondistended, normoactive bowel sounds. No palpable organomegaly. MUSCULOSKELETAL: No joint swelling or deformity. EXTREMITIES: No cyanosis, clubbing, or pedal edema. NEUROLOGICAL: Gross neurological examination did not reveal any focal deficits. SKIN: No rashes. no petechiae. - Labs CBC & Chem 7: 08/06/22 08:03 08/06/22 08:03 Labs: Abnormal Lab Results - Last 24 Hours (Table) 08/05/22 08/05/22 08/06/22 Range/Units 16:39 20:58 06:24 WBC (3.8-10.6) k/uL Neutrophils # (1.3-7.7) k/uL Lymphocytes # (1.0-4.8) k/uL BUN (9-20) mg/dL Glucose (74-99) mg/dL POC Glucose (mg/dL) 113 H 120 H 129 H (70-110) mg/dL 08/06/22 08/06/22 Range/Units 08:03 08:03 WBC 12.7 H (3.8-10.6) k/uL Neutrophils # 11.9 H (1.3-7.7) k/uL Lymphocytes # 0.4 L (1.0-4.8) k/uL BUN 32 H (9-20) mg/dL Glucose 147 H (74-99) mg/dL POC Glucose (mg/dL) (70-110) mg/dL Assessment and Plan Assessment: New-onset A. fib and RVR Acute COPD exacerbation Mild acute hypoxic respiratory failure secondary to above Hypertension Plan: Continue with doxycycline and salmeterol per watermelon inspector Continue with Eliquis amiodarone and metoprolol per rand maker Pulmonary and cardiology consult on the case casino duty manager consult for Eliquis co-pay possible cardioversion on Sunday Labs and medication were reviewed.. Continue same treatment. Continue with symptomatic treatment. Resume home medication. Monitor labs and vitals. DVT and GI prophylaxis. Further recommendations as per clinical course of the p atient DVT prophylaxis: Eliquis GI Prophylaxis: Ppi PT/OT: Pending Prognosis is guarded
[2022-08-06 16:19] LABS: Glucose,Whole Blood 112 mg/dL (70-110)
[2022-08-06 20:25] LABS: Glucose,Whole Blood 127 mg/dL (70-110)
[2022-08-07 06:15] LABS: Glucose,Whole Blood 115 mg/dL (70-110)
[2022-08-07] MEDS: INSULIN ASPART (NovoLOG) 100 UNIT/ML VIAL SQ SCH ×3 (07:34→16:56)
[2022-08-07] MEDS: methylPREDNISolone SOD SUCCI 125 MG/2 ML VIAL IV SCH ×2 (07:47→11:45)
[2022-08-07] MEDS: METOPROLOL SUCCINATE (ER) 25 MG TAB.ER.24H PO SCH (07:58)
[2022-08-07] MEDS: VIT A,C & E-LUTEIN-MINERALS 1 EACH TAB PO SCH (07:58)
[2022-08-07] MEDS: PANTOPRAZOLE 40 MG TABLET PO SCH (07:58)
[2022-08-07] MEDS: CALCIUM CARB-VIT D 500 MG-5 MCG TAB PO SCH (07:58)
[2022-08-07] MEDS: ASPIRIN 81 MG PO SCH (07:58)
[2022-08-07] MEDS: AMIODARONE 200 MG TAB PO SCH (07:58)
[2022-08-07] MEDS: DOXYCYCLINE 100 MG CAP PO SCH (07:58)
[2022-08-07] MEDS: APIXABAN 5 MG TAB PO SCH (07:59)
[2022-08-07] MEDS: SYMBICORT 160-4.5 MCG INHALER INHALATION SCH (09:27)
[2022-08-07] MEDS: IPRATROPIUM-ALBUTEROL 3 ML NEB INHALATION SCH ×2 (09:28→12:59)
[2022-08-07] MEDS ORDERED: SODIUM CHLORIDE 0.9% 1,000 ML IV ONE ×2 (09:45)
[2022-08-07] MEDS ORDERED: PROPOFOL 10 MG/ML 20 ML VIAL IV ONE (09:51)
[2022-08-07] MEDS ORDERED: LIDOCAINE 2% INJ 20 MG/ML (2 ML VIAL) ONE (09:51)
[2022-08-07] MEDS ORDERED: BENZOCAINE SPRAY 1 CAN TOPICAL ONE (09:57)
[2022-08-07] MEDS ORDERED: SODIUM CHLORIDE 0.9% 1,000 ML IV SCH (10:30)
--- NOTE | 2022-08-07 10:30 | P.PCN ---
Date of Procedure: 08/07/22 Description of Procedure: Indication: Atrial fibrillation Procedure Description: After explaining the procedure to the patient, it's risk and complications, blood pressure, heart rate and O2 saturation were monitored. The throat was sprayed with Cetacaine. Patient received sedation per anesthesia department. The probe was introduced into the esophagus without difficulty. Images were obtained. Following that, the probe was removed. There was no immediate complication. Findings: Left atrial size is dilated, left atrial appendage is normal. Left ventricle size is normal. Ejection fraction is 50-55%. Aortic valve revealed mild fibrocalcific changes, mitral valve and tricuspid valve are normal. Descending thoracic aorta appears to be normal. No pericardial effusion was noted. Contrast bubble study revealed no shunting across the intra-atrial septum. The intra-atrial septum is highly mobile Doppler: Pulse wave and color Doppler were obtained, and revealed mild mitral, aortic and tricuspid regurgitation, there was no shunting by color Doppler study. Conclusion: 1. Dilated left atrium with normal appearance of the left atrial appendage 2. Normal in size with borderline systolic function 3. Mild mitral, aortic and tricuspid regurgitation 4. No shunting across the intra-atrial septum with highly mobile septum 5. Normal appearance of the descending thoracic aorta Cardioversion: After obtaining JAVAN and sedated state by the anesthesia department synchronized biphasic cardioversion using 150 J was performed with caodaism of sinus mechanism. There was no immediate complications.
[2022-08-07 11:40] VITALS: RESP 20
[2022-08-07 11:40] LABS: Glucose,Whole Blood 113 mg/dL (70-110)
--- NOTE | 2022-08-07 14:35 | P.PN ---
Subjective Progress Note Date: 08/07/22 HISTORY OF PRESENT ILLNESS: Patient is a pleasant 82 male with significant past medical history of hypertension and a "leaky valve" who presented for complaints of shortness of breath and atrial fibrillation. He follows with Dr. Whitley in the office. He reports yesterday his Smart watch alerted him for atrial fibrillation. He was going to go see his doctor for cough and congestion but after he was alerted for a-fib, he came to the Emergency Department. He denies feeling his heart racing. He does feel short of breath and still has a cough and congestion. He does report having some left chest discomfort with coughing. Denies any chest pain. Labs reviewed: Troponin negative 3, BNP 1160, WBC 4.4, hemoglobin 13.6, platelets 204, creatinine 0.57, A1c 5.8. EKG shows atrial fibrillation with RVR 150 beats per minutes, nonspecific ST and T wave changes. Chest x-ray shows cardiomegaly with no other failure or focal pneumonia. He is feeling better this morning, still with mild shortness of breath with activity. Denies any chest pain or pressure. Heart rate not well controlled still [id number] in A. fib. 08/05 He is still in a-fib with RVR, HR's 100-130's. Feels ok, denies any chest pains. Still short of breath. ECHO with EF 55-60%, mild aortic insufficiency. 08/06 Seen and examined. He has no complaints, voice is improving. HR's 120's. Cough has improved. He walked around the unit and did ok other than shortness of breath. 08/07/2022 Patient is s/p JAVAN and cardioversion with Dr. Whitley. He is maintaining sinus mechanism. He remains anticoagulated with Eliquis. PHYSICAL EXAM: VITAL SIGNS: Reviewed. GENERAL: Well-developed in no acute distress. NECK: Supple. No JVD or thyromegaly LUNGS: Respirations even and unlabored. Lungs essentially clear to auscultation bilaterally. HEART: Regular rate and rhythm. S1 and S2 heard. EXTREMITIES: Normal range of motion. No clubbing or cyanosis. Peripheral pulses intact. No lower extremity edema ASSESSMENT: Atrial fibrillation w/ RVR, new onset, s/p cardioversion Hypertension Dyspnea PLAN: Continue current cardiac medications Discharge per medicine Follow up in the office with Dr. Whitley Nurse practitioner note has been reviewed by physician. Signing provider agrees with the documented findings, assessment, and plan of care. Objective - Vital Signs Vital signs: Vital Signs Temp 97.6 F 08/07/22 07:42 Pulse 54 L 08/07/22 13:47 Resp 20 08/07/22 11:47 BP 132/82 08/07/22 12:01 Pulse Ox 96 08/07/22 13:03 FiO2 Intake & Output 08/06/22 08/07/22 08/07/22 18:59 06:59 18:59 Intake Total 600 1019 Balance 600 1019 Intake: IV 200 Oral 600 819 Other: Voiding Method Toilet Toilet # Voids 1 1 - Labs CBC & Chem 7: 08/06/22 08:03 08/06/22 08:03 Labs: Abnormal Lab Results - Last 24 Hours (Table) 08/06/22 08/06/22 08/07/22 Range/Units 16:18 20:24 06:14 POC Glucose (mg/dL) 112 H 127 H 115 H (70-110) mg/dL 08/07/22 Range/Units 11:39 POC Glucose (mg/dL) 113 H (70-110) mg/dL
--- NOTE | 2022-08-07 15:15 | P.PN ---
Subjective Progress Note Date: 08/07/22 Principal diagnosis: Atrial fibrillation, shortness of breath. This is a very pleasant 82-year-old male patient with a known history of hearing disorder, hypertension, gastroesophageal reflux disease, macular degeneration former smoker, COPD. He has had a one-week history of increasing shortness of breath, cough congestion and hoarseness green sputum. He also had and alert on his eye phone about a fast heart rate. He saw his PCP and was found to be in new onset atrial fibrillation and was sent here to the emergency room yesterday for the same. EKG did reveal atrial fibrillation with a rapid ventricular response. He was initiated on a heparin drip. Cardizem drip at 15 mg an hour. Echocardiogram reveals preserved left ventricular systolic function with ejection fraction 55-60%. Mild aortic insufficiency. Chest x-ray revealed evidence of COPD with some mild pulmonary fibrosis and pulmonary arterial hypertension. There is cardiomegaly but no overt failure or focal pneumonia. White count 4.4. Hemoglobin 13.6. Platelets 204. Sodium 138. Potassium 3.9. Bicarb 27. BUN 28. Creatinine 0.57. Glucose 146. He is seen today in consultation on the selective care unit. He is currently sitting up in bed. Awake and alert in no acute distress. He has a loose nonproductive cough currently. He does have some hoarseness. He is wheezing. He denies any he moptysis. Denies any recent weight loss. He's been initiated on DuoNeb inhalations, Symbicort, IV Solu-Medrol. Patient was reevaluated today on 08/05/2022, patient is feeling better, nonetheless he continues to have atrial fibrillation with RVR, patient was placed on amiodarone by etiology. He is also on eliquis. And the patient is receiving metoprolol 75 mg by mouth daily. Pulmonary-aquino the patient remains on bronchodilators, is also on doxycycline. Improved but not quite ready for discharge planning. Labs today showed WBC count of 13.5 hemoglobin 13.4 PTT 49.6 patient was on heparin before eliquis. Electrodes are normal renal profile is normal Reevaluated today on 08/06/2022, clinically the patient is feeling better, nonetheless he continues to have atrial fibrillation with RVR, rate is 125 today, and regular. Occasional cough no wheezing no shortness of breath. Labs today showed relatively normal CBC normal basic metabolic profile normal potassium normal renal profile. Chest x-ray on admission showed no significant acute process. Progress note dated 08/07/2022. The patient is seen today in room 380. The patient's on room air. Is not receiving any IV fluids. There is some talk, the patient could be discharged. No decision has yet been made. Labs today include a glucose of 113. Labs from August 06, have been reviewed. The patient feels well. The patient will follow- up with my partner post discharge. The patient does have a previous history of tobacco use, and likely has underlying COPD. He apparently has never seen a lung doctor in the past. Objective - Vital Signs Vital signs: Vital Signs Temp 97.6 F 08/07/22 07:42 Pulse 54 L 08/07/22 13:47 Resp 20 08/07/22 11:47 BP 132/82 08/07/22 12:01 Pulse Ox 96 08/07/22 13:03 FiO2 Intake & Output 08/06/22 08/07/22 08/07/22 18:59 06:59 18:59 Intake Total 600 1019 Balance 600 1019 Intake: IV 200 Oral 600 819 Other: Voiding Method Toilet Toilet # Voids 1 1 - Exam No acute distress, oriented 3. Currently on room air. HEENT examination is grossly unremarkable. Neck supple. Full range of motion. No adenopathy thyromegaly or neck vein distention. Cardiovascular examination reveals regular rhythm rate. S1-S2 normal. No S3 or S4. No discernible murmur noted. Heart rate 60 bpm. Lungs reveal clear breath sounds. Breath sounds are equal bilaterally. No adventitious lung sounds including wheezes rhonchi or crackles. Room air saturation is 96%. Abdomen soft bowel sounds are heard. No masses or tenderness. Extremities are intact. No cyanosis clubbing or edema. Skin is without rash or lesion. Neurologic examination is brief but nonfocal. - Labs CBC & Chem 7: 08/06/22 08:03 08/06/22 08:03 Labs: Abnormal Lab Results - Last 24 Hours (Table) 08/06/22 08/06/22 08/07/22 Range/Units 16:18 20:24 06:14 POC Glucose (mg/dL) 112 H 127 H 115 H (70-110) mg/dL 08/07/22 Range/Units 11:39 POC Glucose (mg/dL) 113 H (70-110) mg/dL Assessment and Plan Assessment: Acute hypoxemic respiratory failure, multifactorial, secondary to an acute exacerbation of COPD, tracheobronchitis, and atrial fibrillation with RVR. Benign essential hypertension. GERD, without esophagitis. Former smoker. Macular degeneration. Plan: Plan dated 08/07/2022. The patient may be discharged home today. No decision has been made as yet. We'll leave that up to the primary service. From the pulmonary standpoint, the patient is stable. The patient's currently on room air. Saturations are excellent. The patient continues on appropriate bronchodilators, and Symbicort. The patient's heart rate is now 60 bpm. No additional recommendations are made. Should the patient not be discharged, we will continue to follow the patient and make recommendations along the way. Time with Patient: Less than 30
[2022-08-07 16:14] VITALS: BP 131/72; TEMP 97.7
[2022-08-07 16:46] LABS: Glucose,Whole Blood 97 mg/dL (70-110)
[2022-08-07 17:32] VITALS: PULSE 59
--- NOTE | 2022-08-07 22:45 | P.DS ---
Providers Date of admission: 08/03/22 15:07 Attending physician: Eleazar Waters MD Consults: 08/03/22 14:56 Consult Physician Urgent Consulting Provider: Alfredo Bruce Consult Reason/Comments: New-onset A. fib, A. fib RVR Do you want consulting provider notified?: Yes 08/03/22 17:04 Consult Physician Routine Consulting Provider: Kacey Gomez Consult Reason/Comments: copd Do you want consulting provider notified?: Yes [facility]: Diagnoses New-onset A. fib and RVR Acute COPD exacerbation Mild acute hypoxic respiratory failure secondary to above Hypertension Hospital course: This is a pleasant 82 years old male with multiple medical problems He was sent by his PCP for atrial fibrillation on his EKG She was evaluated by costumed character entertainer and he was treated with amiodarone and beta susanna with no significant improvement, he underwent cardioversion by cardiology team today, heart rate is controlled and patient was cleared for discharge by costumed character entertainer. Patient will be discharged on tapered amiodarone dose per cardiology's recommendation as well as metoprolol prescription is provided for the patient. Patient also on Eliquis, started for him with risk-benefit authenticated lesions are explained for him extensively. He agreed to the medication however he has detectable copy of $499, patient was not sure when I discussed the case with him but he is willing to take a coupon of one month free Eliquis is going to follow up with costumed character entertainer and PCP as an outpatient as he told me I explained for the patient he needs blood thinner Eliquis to protect her from stroke and recommended to make sure he takes medication time. He verbalized understanding and acceptance. Also risk of bleeding explained for the patient extensively including but not limited to risk of brain bleed. Per cardiology's recommendation stop aspirin on discharge since he is on blood thinners none. Pulmonary also. Patient for COPD exacerbation. Patient is discharged on tapered prednisone and short course of doxycycline Patient of about WNL. He denies chest pain or dyspnea. No change in urine or bowel habits. No fever. No new complaint. Patient does not want to go for rehab and he wants to go home with home health provided for him upon discharge. Patient was cleared for discharge by pulmonary and cardiology services as above Problems and management plan were discussed with the patient and he verbalized understanding and acceptance Patient was found stable and can be discharged home in guarded prognosis however he needs follow-up as an outpatient. Patient was instructed to follow up with PCP Dr. Weems within one week and patient agrees Patient was instructed to follow up with his costumed character entertainer Dr. Whitley in one week and investigator fraud Dr. Phillip in 1-2 weeks and he agrees to call and make appointment. was at bedside and she is agreeable with the plan as well Physical exam Gen: patient is a AAOx3, no distress CVS: S1-S2, RRR, no murmur Lungs: B/L CTA, no wheezing Abdomen: soft, no distention, no tenderness, positive bowel sounds Extremity: no leg edema or induration Time spent more than 35 minutes Patient Condition at Discharge: Fair Plan - Discharge Summary Discharge Rx Participant: Yes New Discharge Prescriptions: New Apixaban [Eliquis] 5 mg PO BID #60 tab Amiodarone [Cordarone] 200 mg PO DIRECTED #80 tab Nitroglycerin Sl Tabs [Nitrostat] 0.4 mg SUBLINGUAL Q5M PRN #20 tab PRN Reason: Chest Pain predniSONE 10 mg PO DIRECTED #30 tab Metoprolol Succinate (ER) [Toprol XL] 50 mg PO DAILY #30 tab Doxycycline [Vibramycin] 100 mg PO BID 2 Days #4 cap Continue Omeprazole [PriLOSEC] 20 mg PO DAILY Furosemide [Lasix] 20 mg PO DAILY PRN PRN Reason: leg swelling Vit C/E/Zn/Coppr/Lutein/Zeaxan [Preservision Areds 2 Softgel] 1 cap PO DAILY Calcium Carbonate/Vitamin D3 [Calcium 600-Vit D3 400 Caplet] 1 tab PO DAILY Fexofenadine HCl [Krista Allergy] 180 mg PO DAILY Albuterol Sulfate [Albuterol Sulfate Hfa] 2 puff PO RT-Q6H PRN #1 each PRN Reason: Shortness Of Breath Discontinued Lisinopril-Hctz 10-12.5 mg [Zestoretic 10-12.5] 1 tab PO DAILY Aspirin EC [Ecotrin Low Dose] 81 mg PO DAILY Naproxen Sodium [Aleve] 220 mg PO BID PRN PRN Reason: Pain Discharge Medication List Calcium Carbonate/Vitamin D3 [Calcium 600-Vit D3 400 Caplet] 1 tab PO DAILY 11/10/15 [History] Furosemide [Lasix] 20 mg PO DAILY PRN 11/10/15 [History] Omeprazole [PriLOSEC] 20 mg PO DAILY 11/10/15 [History] Vit C/E/Zn/Coppr/Lutein/Zeaxan [Preservision Areds 2 Softgel] 1 cap PO DAILY 11/10/15 [History] Fexofenadine HCl [Krista Allergy] 180 mg PO DAILY 08/03/22 [History] Apixaban [Eliquis] 5 mg PO BID #60 tab 08/06/22 [Rx] Albuterol Sulfate [Albuterol Sulfate Hfa] 2 puff PO RT-Q6H PRN #1 each 08/07/22 [Rx] Amiodarone [Cordarone] 200 mg PO DIRECTED #80 tab 08/07/22 [Rx] Doxycycline [Vibramycin] 100 mg PO BID 2 Days #4 cap 08/07/22 [Rx] Metoprolol Succinate (ER) [Toprol XL] 50 mg PO DAILY #30 tab 08/07/22 [Rx] Nitroglycerin Sl Tabs [Nitrostat] 0.4 mg SUBLINGUAL Q5M PRN #20 tab 08/07/22 [Rx] predniSONE 10 mg PO DIRECTED #30 tab 08/07/22 [Rx] Follow up Appointment(s)/Referral(s): Kacey Gomez MD [STAFF PHYSICIAN] - 08/30/22 9:00 am Luan Whitley MD [STAFF PHYSICIAN] - 08/16/22 3:45 pm Jonah Weems III, MD [Primary Care Provider] - 1-2 days (Office not answering; please call [facility] for follow up appointment.) Patient Instructions/Handouts: A-fib (Atrial Fibrillation) (DC), COPD (Chronic Obstructive Pulmonary Disease) (DC) Activity/Diet/Wound Care/Special Instructions: Heart healthy diet activity is restricted till you see your doctor Discharge Disposition: HOME WITH HOME HEALTH SERVICES
[2022-08-08] MEDS ORDERED: METOPROLOL SUCCINATE (ER) 50 MG TAB.ER.24H PO SCH (09:00)
== END 2022-08-07 17:41 | disposition home health service (06) | DRG 308 ==
LOC: EC 12:45 → 3SCARD 15:07
PROVIDERS: ADMIT Internal Medicine; ATTEND Internal Medicine
PROC: B246ZZ4 Ultrasonography of Right and Left Heart, Transesophageal (ICD-10-PCS; principal; 2022-08-07 11:45)
DX: I48.91 Unspecified atrial fibrillation (principal); J96.01 Acute respiratory failure with hypoxia; J44.0 Chronic obstructive pulmonary disease with (acute) lower respiratory infection; J44.1 Chronic obstructive pulmonary disease with (acute) exacerbation; Z87.891 Personal history of nicotine dependence; Z28.310 Unvaccinated for COVID-19; Z28.21 Immunization not carried out because of patient refusal; M19.90 Unspecified osteoarthritis, unspecified site; I10 Essential (primary) hypertension; I27.21 Secondary pulmonary arterial hypertension; H35.30 Unspecified macular degeneration; J84.10 Pulmonary fibrosis, unspecified; H91.90 Unspecified hearing loss, unspecified ear; I35.1 Nonrheumatic aortic (valve) insufficiency; Z79.82 Long term (current) use of aspirin; Z79.899 Other long term (current) drug therapy; K21.9 Gastro-esophageal reflux disease without esophagitis; Z96.653 Presence of artificial knee joint, bilateral
CPT/HCPCS: 36415; 71046; 80048; 80053; 83036; 83735; 83880; 84145; 84484; 85025; 85610; 85730; 92960; 93005; 93306; 93312; 93320; 93325; 94640; 94760; 96365; 96366; 96368; 96375; 99291

== ENCOUNTER 2023-03-30 05:35 | Inpatient (IN) | payer MEDICARE ==
--- NOTE | 2023-03-30 06:12 | ED ---
General Adult HPI - General Chief complaint: Chest Pain Stated complaint: Chest pain Time Seen by Provider: 03/30/23 05:44 Source: patient, EMS Mode of arrival: EMS Limitations: no limitations - History of Present Illness Initial comments: Dictation was produced using [employer] dictation software. please excuse any grammatical, word or spelling errors. Chief Complaint: 82-year-old male presents emergency department for A. fib History of Present Illness: Patient is an 82-year-old male who has past medical history of A. fib. He is instructed by his doctors to seek medical attention if he goes back into A. fib. He got up at 4 in the morning to use bathroom. He versus June watch and was alerted as watch that he was in A. fib. Patient denies any chest pain at this time. He did have some chest pain earlier today. States that does not have any symptoms of palpitations. Patient states he does take anticoagulation medications. The ROS documented in this emergency department record has been reviewed and confirmed by me. Those systems with pertinent positive or negative responses have been documented in the HPI. All other systems are other negative and/or noncontributory. - Related Data Home Medications Medication Instructions Recorded Confirmed Calcium Carbonate/Vitamin D3 1 tab PO DAILY 11/10/15 08/03/22 [Calcium 600-Vit D3 400 Caplet] Furosemide [Lasix] 20 mg PO DAILY PRN 11/10/15 08/03/22 Omeprazole [PriLOSEC] 20 mg PO DAILY 11/10/15 08/03/22 Vit C/E/Zn/Coppr/Lutein/Zeaxan 1 cap PO DAILY 11/10/15 08/03/22 [Preservision Areds 2 Softgel] Fexofenadine HCl [Krista Allergy] 180 mg PO DAILY 08/03/22 08/03/22 Previous Rx's Medication Instructions Recorded Apixaban [Eliquis] 5 mg PO BID #60 tab 08/06/22 Albuterol Sulfate [Albuterol 2 puff PO RT-Q6H PRN #1 each 08/07/22 Sulfate Hfa] Amiodarone [Cordarone] 200 mg PO DIRECTED #80 tab 08/07/22 Doxycycline [Vibramycin] 100 mg PO BID 2 Days #4 cap 08/07/22 Metoprolol Succinate (ER) [Toprol 50 mg PO DAILY #30 tab 08/07/22 XL] Nitroglycerin Sl Tabs [Nitrostat] 0.4 mg SUBLINGUAL Q5M PRN #20 tab 08/07/22 predniSONE 10 mg PO DIRECTED #30 tab 08/07/22 Allergies Allergy/AdvReac Type Severity Reaction Status Date / Time No Known Allergies Allergy Verified 03/30/23 05:46 Review of Systems ROS Statement: Those systems with pertinent positive or pertinent negative responses have been documented in the HPI. ROS Other: All systems not noted in ROS Statement are negative. Past Medical History Past Medical History: COPD, Eye Disorder, GERD/Reflux, Hearing Disorder / Deafness, Hypertension, Osteoarthritis (OA) Additional Past Medical History / Comment(s): macular degeneration, leaky aortic valve-stable, monitors History of Any Multi-Drug Resistant Organisms: None Reported Past Surgical History: Appendectomy, Cholecystectomy, Heart Catheterization, Hernia Repair, Joint Replacement, Orthopedic Surgery Additional Past Surgical History / Comment(s): ruptured tendon repair right ankle/foot, bilateral cataract surg-WITH IMPLANTS, TOTAL B/L KNEE , Past Anesthesia/Blood Transfusion Reactions: No Reported Reaction Past Psychological History: No Psychological Hx Reported Smoking Status: Former smoker Past Alcohol Use History: None Reported Past Drug Use History: None Reported - Past Family History Mother Sister(s) Family Medical History: Cancer Father Family Medical History: Cancer Mother Family Medical History: Cancer Sister(s) Family Medical History: Cancer General Exam - General Exam Comments Initial Comments: PHYSICAL EXAM: General Impression: Alert and oriented x3, not in acute distress HEENT: Normocephalic atraumatic, extra-ocular movements intact, pupils equal and reactive to light bilaterally, mucous membranes moist. Cardiovascular: Irregularly irregular Chest: Able to complete full sentences, no retractions, no tachypnea Abdomen: abdomen soft, non-tender, non-distended, no organomegaly Musculoskeletal: Pulses present and equal in all extremities, no peripheral edema Motor: no focal deficits noted Neurological: CN II-XII grossly intact, no focal motor or sensory deficits noted Skin: Intact with no visualized rashes Psych: Normal affect and mood Limitations: no limitations Course Vital Signs 03/30/23 05:41 Temperature 97.9 F Pulse Rate 147 H Respiratory 20 Rate Blood Pressure 130/97 O2 Sat by Pulse 97 Oximetry - Reevaluation(s) Reevaluation #1: 12/22/23 06:03 Patient seen and evaluated in trauma bay #3. Patient connected to the nuclear monitoring technician with A. fib RVR with rates exceeding 140 bpm. EKG Findings - EKG Comments: EKG Findings:: My EKG interpretation: Ventricular rate 120, A. fib with RVR, QRS 111, QTc 43. No WA prolongation, no QTC prolongation, no ST or T-wave changes noted. EKG compared to 08/07/2022 with similar waveforms. Overall, this EKG is unremarkable Medical Decision Making - Medical Decision Making Was pt. sent in by a medical professional or institution (, PA, RN PERITONEAL DIALYSIS, urgent care, hospital, or usp...) When possible be specific @ -No Did you speak to anyone other than the patient for history (EMS, parent, family, police, friend...)? What history was obtained from this source @ -No Did you review nursing and triage notes (agree or disagree)? Why? @ -I reviewed and agree with nursing and triage notes Were old charts reviewed (outside hosp., previous admission, EMS record, old EKG, old radiological studies, urgent care reports/EKG's, usp records)? Report findings @ -No old charts were reviewed Differential Diagnosis (chest pain, altered mental status, abdominal pain women, abdominal pain men, vaginal bleeding, musculoskeletal, weakness, fever, dyspnea, syncope, headache, dizziness, GI bleed, back pain, seizure, CVA, p alpatations, mental health)? @ - Differential Palpitations: Ventricular arrhythmias, atrial arrhythmias, myocardial infarction, anemia, thyrotoxicosis, electrolyte imbalance, hypokalemia, pulmonary embolism, pulmonary disease, drugs, alcohol, anxiety, stress.... This is not meant to be an all-inclusive list. EKG interpreted by me (3pts min.). @ -see above X-rays interpreted by me (1pt min.). @ -Chest x-ray shows no lobar infiltrates CT interpreted by me (1pt min.). @ -None done U/S interpreted by me (1pt. min.). @ -None done What testing was considered but not performed or refused? (CT, X-rays, U/S, l abs)? Why? @ -None What meds were considered but not given or refused? Why? @ -None Did you discuss the management of the patient with other professionals (professionals i.e. DrAkash, PA, RN PERITONEAL DIALYSIS, lab, RT, psych nurse, health and social care teacher, control operator, teacher, natural resource officer, family preservation caseworker)? Give summary @ -No Was smoking cessation discussed for >3mins.? @ -No Was critical care preformed (if so, how long)? @ -yes, 33 minutes Were there social determinants of health that impacted care today? How? (Homelessness, low income, unemployed, alcoholism, drug addiction, transportation, low edu. Level, literacy, decrease access to med. care, usp, rehab)? @ -No Was there de-escalation of care discussed even if they declined (Discuss DNR or withdrawal of care, Hospice)? DNR status @ -No What co-morbidities impacted this encounter? (DM, HTN, Smoking, COPD, CAD, Cancer, CVA, ARF, Chemo, Hep., AIDS, mental health diagnosis, sleep apnea, morbid obesity)? @ -None Was patient admitted / discharged? Hospital course, mention meds given and route, prescriptions, significant lab abnormalities, going to OR and other pert inent info. @ -82-year-old male presents emergency department with clinical presentation consistent with A. fib with RVR. Patient is reportedly on anticoagulant medications and rate controlling medications. Laboratory evaluation is unremarkable. Troponin is negative. Patient is well-appearing. He started on Cardizem for rate control. Patient be admitted with consultation to cardiology. Undiagnosed new problem with uncertain prognosis? @ -No Drug Therapy requiring intensive monitoring for toxicity (Heparin, Nitro, Insulin, Cardizem)? @ -No Were any procedures done? @ -No Diagnosis/symptom? Acute, or Chronic, or Acute on Chronic? Uncomplicated (without systemic symptoms) or Complicated (systemic symptoms)? @ -A. fib with RVR Side effects of treatment? @ -No Exacerbation, Progression, or Severe Exacerbation? @ -No Poses a threat to life or bodily function? How? (Chest pain, USA, NM, pneumonia, PE, COPD, DKA, ARF, appy, cholecystitis, CVA, Diverticulitis, Homicidal, Suicidal, threat to staff... and all critical care pts) @ -yes - Lab Data Result diagrams: 03/30/23 06:07 03/30/23 06:07 Lab Results 1203/30/23 03/30/23 Range/Units 06:07 06:07 06:07 WBC 10.3 (3.8-10.6) k/uL RBC 5.01 (4.30-5.90) m/uL Hgb 14.4 (13.0-17.5) gm/dL Hct 44.1 (39.0-53.0) % MCV 88.1 (80.0-100.0) fL MCH 28.8 (25.0-35.0) pg MCHC 32.7 (31.0-37.0) g/dL RDW 14.9 (11.5-15.5) % Plt Count 284 (150-450) k/uL MPV 8.1 Neutrophils % 74 % Lymphocytes % 13 % Monocytes % 6 % Eosinophils % 4 % Basophils % 1 % Neutrophils # 7.5 (1.3-7.7) k/uL Lymphocytes # 1.4 (1.0-4.8) k/uL Monocytes # 0.6 (0-1.0) k/uL Eosinophils # 0.4 (0-0.7) k/uL Basophils # 0.1 (0-0.2) k/uL Hypochromasia Slight PT 10.9 (10.0-12.5) sec INR 1.0 (<1.2) APTT 23.8 (22.0-30.0) sec Sodium 141 (137-145) mmol/L Potassium 4.1 (3.5-5.1) mmol/L Chloride 105 (98-107) mmol/L Carbon Dioxide 24 (22-30) mmol/L Anion Gap 12 mmol/L BUN 22 H (9-20) mg/dL Creatinine 0.65 L (0.66-1.25) mg/dL Est GFR (CKD-EPI)AfAm >90 (>60 ml/min/1.73 sqM) Est GFR (CKD-EPI)NonAf >90 (>60 ml/min/1.73 sqM) Glucose 138 H (74-99) mg/dL Calcium 9.0 (8.4-10.2) mg/dL Magnesium 1.8 (1.6-2.3) mg/dL Total Bilirubin 0.6 (0.2-1.3) mg/dL AST 30 (17-59) U/L ALT 28 (4-49) U/L Alkaline Phosphatase 93 (38-126) U/L Troponin I (0.000-0.034) ng/mL Total Protein 6.7 (6.3-8.2) g/dL Albumin 3.8 (3.5-5.0) g/dL 03/30/23 Range/Units 06:07 WBC (3.8-10.6) k/uL RBC (4.30-5.90) m/uL Hgb (13.0-17.5) gm/dL Hct (39.0-53.0) % MCV (80.0-100.0) fL MCH (25.0-35.0) pg MCHC (31.0-37.0) g/dL RDW (11.5-15.5) % Plt Count (150-450) k/uL MPV Neutrophils % % Lymphocytes % % Monocytes % % Eosinophils % % Basophils % % Neutrophils # (1.3-7.7) k/uL Lymphocytes # (1.0-4.8) k/uL Monocytes # (0-1.0) k/uL Eosinophils # (0-0.7) k/uL Basophils # (0-0.2) k/uL Hypochromasia PT (10.0-12.5) sec INR (<1.2) APTT (22.0-30.0) sec Sodium (137-145) mmol/L Potassium (3.5-5.1) mmol/L Chloride (98-107) mmol/L Carbon Dioxide (22-30) mmol/L Anion Gap mmol/L BUN (9-20) mg/dL Creatinine (0.66-1.25) mg/dL Est GFR (CKD-EPI)AfAm (>60 ml/min/1.73 sqM) Est GFR (CKD-EPI)NonAf (>60 ml/min/1.73 sqM) Glucose (74-99) mg/dL Calcium (8.4-10.2) mg/dL Magnesium (1.6-2.3) mg/dL Total Bilirubin (0.2-1.3) mg/dL AST (17-59) U/L ALT (4-49) U/L Alkaline Phosphatase (38-126) U/L Troponin I <0.012 (0.000-0.034) ng/mL Total Protein (6.3-8.2) g/dL Albumin (3.5-5.0) g/dL Disposition Clinical Impression: Atrial fibrillation with RVR Disposition: ADMITTED IP TO THIS HOSP Condition: Fair Referrals: Avel Sifuentes DO [Primary Care Provider] - 1-2 days Decision Time: 07:19
[2023-03-30] MEDS ORDERED: DILTIAZEM 125 MG in SODIUM CHLORIDE 0.9% 100 ML IV SCH (06:15)
[2023-03-30 06:16] LABS: Basophils # (A) 0.1 k/uL (0-0.2); Basophils % (A) 1 %; Eosinophils # (A) 0.4 k/uL (0-0.7); Eosinophils % (A) 4 %; HCT 44.1 % (39.0-53.0); HGB 14.4 gm/dL (13.0-17.5); Hypochromasia Slight; Lymphocytes # (A) 1.4 k/uL (1.0-4.8); Lymphocytes % (A) 13 %; MCH 28.8 pg (25.0-35.0); MCHC 32.7 g/dL (31.0-37.0); MCV 88.1 fL (80.0-100.0); Mean Platelet Volume 8.1; Monocytes # (A) 0.6 k/uL (0-1.0); Monocytes % (A) 6 %; Neutrophils # (A) 7.5 k/uL (1.3-7.7); Neutrophils % (A) 74 %; Platelet Count 284 k/uL (150-450); RBC 5.01 m/uL (4.30-5.90); RDW 14.9 % (11.5-15.5); WBC 10.3 k/uL (3.8-10.6)
[2023-03-30 06:25] LABS: ALT 28 U/L (4-49); AST 30 U/L (17-59); African American GFR (CKD) >90 (>60 ml/min/1.73 sqM); Albumin 3.8 g/dL (3.5-5.0); Alkaline Phosphatase 93 U/L (38-126); Anion Gap 12 mmol/L; Blood Urea Nitrogen 22 mg/dL (9-20); Carbon Dioxide 24 mmol/L (22-30); Chloride 105 mmol/L (98-107); Glucose 138 mg/dL (74-99); Magnesium 1.8 mg/dL (1.6-2.3); Non-African American GFR(CKD) >90 (>60 ml/min/1.73 sqM); Potassium 4.1 mmol/L (3.5-5.1); Sodium 141 mmol/L (137-145); Total Bilirubin 0.6 mg/dL (0.2-1.3); Total Protein 6.7 g/dL (6.3-8.2)
[2023-03-30 06:40] LABS: Partial Thromboplastin Time 23.8 sec (22.0-30.0); Prothrombin Time 10.9 sec (10.0-12.5)
[2023-03-30] MEDS ORDERED: NALOXONE 0.4 MG/ML 1 ML VIAL IV PRN (07:12)
[2023-03-30] MEDS ORDERED: SODIUM CHLORIDE 0.9% 1,000 ML IV SCH ×2 (07:15→08:45)
--- NOTE | 2023-03-30 08:11 | XR ---
EXAMINATION TYPE: XR chest 1V portable DATE OF EXAM: 03/30/2023 Comparison: 08/03/2022 Clinical History: 82-year-old male afib rvr Findings: Electronic device projects on the left side of the heart. Low lung volumes with crowded vascular jesi ings. Diffuse interstitial density is unchanged. Mild to moderate cardiomegaly is unchanged. No dakota consolidation or pleural effusion. Impression: Hypoventilatory changes with ongoing findings suggestive of CHF and pulmonary vascular congestion.
[2023-03-30] MEDS ORDERED: AMIODARONE 200 MG TAB PO SCH (09:00)
[2023-03-30] MEDS ORDERED: METOPROLOL SUCCINATE (ER) 50 MG TAB.ER.24H PO SCH (09:00)
[2023-03-30] MEDS ORDERED: APIXABAN 5 MG TAB PO SCH (09:00)
[2023-03-30] MEDS ORDERED: IV FLUID CONTINUATION 1,000 ML IV ONE ×2 (09:35)
[2023-03-30] MEDS ORDERED: PROPOFOL 10 MG/ML 20 ML VIAL IV ONE (09:43)
--- NOTE | 2023-03-30 10:28 | P.CRDCN ---
History of Present Illness History of present illness: HISTORY OF PRESENT ILLNESS: This is a 82-year-old male with a past medical history significant for paroxysmal atrial fibrillation and hypertension. Patient follows in the office with Dr. Whitley. We have been asked to see the patient in consultation for A. fib with RVR. Patient examined at the bedside emergency room. Patient reports yesterday he was alerted by his phone that his heart rate was fast. He denies feeling any palpitations. He does report having some mild right-sided chest pain at that time. The patient was recently seen in the cardiology office and had an event monitor placed. At the time of examination he remains in atrial fibrillation with a heart rate around 120. He was started on IV Cardizem. He is hypotensive at the time of examination with a heart rate in the 90s. It is noted that the patient was hospitalized at the end of July due to A. fib with RVR. At that time there was difficulty controlling the patient's rates and he underwent JVAAN and cardioversion on 08/07/[address] Whitley REVIEW OF SYSTEMS: At the time of my exam: CONSTITUTIONAL: Denies fever or chills. HEENT: Denies blurred vision, vision changes, or eye pain. Denies hemoptysis CARDIOVASCULAR: Denies chest pain. Denies orthopnea. Denies PND. Denies palpitations RESPIRATORY: Denies shortness of breath. GASTROINTESTINAL: Denies abdominal pain. Denies nausea or vomiting. HEMATOLOGIC: Denies bleeding disorders. GENITOURINARY: Denies any blood in urine. SKIN: Denies pruitis. Denies rash. PHYSICAL EXAM: VITAL SIGNS: Reviewed. GENERAL: Well-developed in no acute distress. HEENT: Head is normocephalic. Pupils are equal, round. Sclerae anicteric. Mucous membranes of the mouth are moist. Neck supple. No JVD or thyromegaly LUNGS: Respirations even and unlabored. Lungs essentially clear to auscultation bilaterally. HEART: Tachycardic. Irregular rate and rhythm. S1 and S2 heard. ABDOMEN: Soft. Nondistended. Nontender. EXTREMITIES: Normal range of motion. No clubbing or cyanosis. Peripheral pulses intact. No lower extremity edema NEUROLOGIC: Awake and alert. Oriented x 3. ASSESSMENT: Paroxysmal atrial for relation with RVR Borderline hypotensive History of hypertension History of JAVAN and cardioversion, 08/07/2022 PLAN: Continue Eliquis and metoprolol succinate Add oral amiodarone 200 mg twice a day Discontinue IV Cardizem Patient to undergo cardioversion today Patient may be discharged home this afternoon post cardioversion if he remains stable Nurse practitioner note has been reviewed by physician. Signing provider agrees with the documented findings, assessment, and plan of care. Past Medical History Past Medical History: COPD, Eye Disorder, GERD/Reflux, Hearing Disorder / Deafness, Hypertension, Osteoarthritis (OA) Additional Past Medical History / Comment(s): macular degeneration, leaky aortic valve-stable, monitors History of Any Multi-Drug Resistant Organisms: None Reported Past Surgical History: Appendectomy, Cholecystectomy, Heart Catheterization, Hernia Repair, Joint Replacement, Orthopedic Surgery Additional Past Surgical History / Comment(s): ruptured tendon repair right ankle/foot, bilateral cataract surg-WITH IMPLANTS, TOTAL B/L KNEE , Past Anesthesia/Blood Transfusion Reactions: No Reported Reaction Past Psychological History: No Psychological Hx Reported Smoking Status: Former smoker Past Alcohol Use History: None Reported Past Drug Use History: None Reported - Past Family History Mother Sister(s) Family Medical History: Cancer Father Family Medical History: Cancer Mother Family Medical History: Cancer Sister(s) Family Medical History: Cancer Medications and Allergies Home Medications Medication Instructions Recorded Confirmed Type Calcium Carbonate/Vitamin D3 1 tab PO DAILY 11/10/15 08/03/22 History [Calcium 600-Vit D3 400 Caplet] Furosemide [Lasix] 20 mg PO DAILY PRN 11/10/15 08/03/22 History Omeprazole [PriLOSEC] 20 mg PO DAILY 11/10/15 08/03/22 History Vit C/E/Zn/Coppr/Lutein/Zeaxan 1 cap PO DAILY 11/10/15 08/03/22 History [Preservision Areds 2 Softgel] Fexofenadine HCl [Krista Allergy] 180 mg PO DAILY 08/03/22 08/03/22 History Apixaban [Eliquis] 5 mg PO BID #60 tab 08/06/22 Rx Albuterol Sulfate [Albuterol 2 puff PO RT-Q6H PRN #1 each 08/07/22 Rx Sulfate Hfa] Amiodarone [Cordarone] 200 mg PO DIRECTED #80 tab 05/01/23 Rx Doxycycline [Vibramycin] 100 mg PO BID 2 Days #4 cap 08/07/22 Rx Metoprolol Succinate (ER) [Toprol 50 mg PO DAILY #30 tab 08/07/22 Rx XL] Nitroglycerin Sl Tabs [Nitrostat] 0.4 mg SUBLINGUAL Q5M PRN #20 tab 08/07/22 Rx predniSONE 10 mg PO DIRECTED #30 tab 08/07/22 Rx Amiodarone [Cordarone] 200 mg PO BID #180 tab 03/30/23 Rx Allergies Allergy/AdvReac Type Severity Reaction Status Date / Time No Known Allergies Allergy Verified 03/30/23 05:46 Physical Exam Vitals: Vital Signs Temp Pulse Resp BP Pulse Ox 03/30/23 08:17 97.7 F 112 H 18 96/73 95 03/30/23 06:30 123 H 19 101/67 94 L 03/30/23 05:41 97.9 F 147 H 20 130/97 97 Intake and Output 03/29/23 03/30/23 03/30/23 22:59 06:59 14:59 Other: Weight 110.677 kg Results 03/30/23 06:07 03/30/23 06:07 Cardiac Enzymes 03/30/23 03/30/23 Range/Units 06:07 06:07 AST 30 (17-59) U/L Troponin I <0.012 (0.000-0.034) ng/mL Coagulation 03/30/23 Range/Units 06:07 PT 10.9 (10.0-12.5) sec APTT 23.8 (22.0-30.0) sec CBC 03/30/23 Range/Units 06:07 WBC 10.3 (3.8-10.6) k/uL RBC 5.01 (4.30-5.90) m/uL Hgb 14.4 (13.0-17.5) gm/dL Hct 44.1 (39.0-53.0) % Plt Count 284 (150-450) k/uL Comprehensive Metabolic Panel 03/30/23 Range/Units 06:07 Sodium 141 (137-145) mmol/L Potassium 4.1 (3.5-5.1) mmol/L Chloride 105 (98-107) mmol/L Carbon Dioxide 24 (22-30) mmol/L BUN 22 H (9-20) mg/dL Creatinine 0.65 L (0.66-1.25) mg/dL Glucose 138 H (74-99) mg/dL Calcium 9.0 (8.4-10.2) mg/dL AST 30 (17-59) U/L ALT 28 (4-49) U/L Alkaline Phosphatase 93 (38-126) U/L Total Protein 6.7 (6.3-8.2) g/dL Albumin 3.8 (3.5-5.0) g/dL Current Medications Generic Name Dose Route Start Last Admin Trade Name Freq PRN Reason Stop Dose Admin Diltiazem HCl 125 mg/ Sodium 125 mls @ 5 mls/hr 03/30/23 06:15 03/30/23 06:26 Chloride IV 5 mg/hr .Q24H ERICH 5 mls/hr Administration 5 MG/HR Sodium Chloride 1,000 mls @ 20 mls/hr 03/30/23 07:15 03/30/23 08:19 Saline 0.9% IV 20 mls/hr .Q24H ERICH Administration Naloxone HCl 0.2 mg 03/30/23 07:12 Naloxone 0.4 Mg/Ml 1 Ml Vial IV Q2M PRN Opioid Reversal Intake and Output 03/29/23 03/30/23 03/30/23 22:59 06:59 14:59 Other: Weight 110.677 kg 03/30/23 06:07 03/30/23 06:07
--- NOTE | 2023-03-30 10:33 | P.PCN ---
Date of Procedure: 03/30/23 Description of Procedure: Cardioversion: Indication: Atrial fibrillation After explaining the procedure to the patient as well is the risks and the complications, his blood pressure, heart rate and O2 saturation where monitored. He received sedation per anesthesia department. A synchronized biphasic cardi oversion using 150 J and subsequently 200 J was successful in restoring sinus mechanism, there was no immediate complications.
[2023-03-30 12:13] VITALS: RESP 17
[2023-03-30 12:38] VITALS: BP 132/57; PULSE 62; TEMP 97.9
--- NOTE | 2023-03-30 12:38 | P.HPIM ---
History of Present Illness H&P Date: 03/30/23 History of present illness; patient is a 82-year-old gentleman with past medical history significant for atrial fibrillation, hypertension who presented to the ER because of chest pain or palpitation. Patient stated that he woke up at 4 AM in the morning to use the bathroom. At that time patient was experiencing some chest pain and palpitation. Patient had a smart watch on did give him an alert that he was in A. fib with RVR. There was no complain of any orthopnea or PND. There was no complain shortness of breath at rest or exertion. There was no complain of any swelling of feet. Patient denies any nausea, vomiting or abdominal pain. Because of this chest pain or palpitation, patient came to the ER Initial lab work done in the ER showed WBC 10.3, hemoglobin 40.4, platelet count 24, sodium 141 potassium 4.1, BUNs 22, creatinine 0.65, glucose 138, calcium 9, magnesium 1.8, troponin 0.012 EKG done in the ER showed heart rate of 120, no P waves seen, no ST segment elevation or depression seen, no T-wave inversions seen. Chest x-ray done in the ER showed hypoventilatory changes with ongoing findings suggestive of CHF and pulmonary vascular congestion Patient admitted to internal medicine service REVIEW OF SYSTEMS: CONSTITUTIONAL: No fever, no malaise, no fatigue. HEENT: No recent visual problems or hearing problems. Denied any sore throat. CARDIOVASCULAR: As mentioned in HPI PULMONARY: As mentioned in HPI GASTROINTESTINAL: No diarrhea, no nausea, no vomiting, no abdominal pain. NEUROLOGICAL: No headaches, no weakness, no numbness. HEMATOLOGICAL: Denies any bleeding or petechiae. GENITOURINARY: Denies any burning micturition, frequency, or urgency. MUSCULOSKELETAL/RHEUMATOLOGICAL: Denies any joint pain, swelling, or any muscle pain. ENDOCRINE: Denies any polyuria or polydipsia. The rest of the 14-point review of systems is negative. PHYSICAL EXAMINATION: GENERAL: The patient is alert and oriented x3, not in any acute distress. Well developed, well nourished. HEENT: Pupils are round and equally reacting to light. EOMI. No scleral icterus. No conjunctival pallor. Normocephalic, atraumatic. No pharyngeal erythema. No thyromegaly. CARDIOVASCULAR: S1 and S2 present. No murmurs, rubs, or gallops. PULMONARY: Chest is clear to auscultation, no wheezing or crackles. ABDOMEN: Soft, nontender, nondistended, normoactive bowel sounds. No palpable organomegaly. MUSCULOSKELETAL: No joint swelling or deformity. EXTREMITIES: No cyanosis, clubbing, or pedal edema. NEUROLOGICAL: Gross neurological examination did not reveal any focal deficits. SKIN: No rashes. Assessment and plan A. fib RVR Hypertension History of COPD Monitor vital signs Monitor CBC Monitor CMP Continue telemetry monitoring Trend troponin. Continue amiodarone and continue Eliquis Resume home meds Consult cardiology Labs and medication were reviewed.. Continue same treatment. Continue with symptomatic treatment. Resume home medication. Monitor labs and vitals. DVT and GI prophylaxis. Further recommendations as per clinical course of the patient Dictation was produced using [employer] dictation software. please excuse any grammatical, word or spelling errors. Past Medical History Past Medical History: COPD, Eye Disorder, GERD/Reflux, Hearing Disorder / Deafness, Hypertension, Osteoarthritis (OA) Additional Past Medical History / Comment(s): macular degeneration, leaky aortic valve-stable, dr. jones History of Any Multi-Drug Resistant Organisms: None Reported Past Surgical History: Appendectomy, Cholecystectomy, Heart Catheterization, Hernia Repair, Joint Replacement, Orthopedic Surgery Additional Past Surgical History / Comment(s): ruptured tendon repair right ankle/foot, bilateral cataract surg-WITH IMPLANTS, TOTAL B/L KNEE , Past Anesthesia/Blood Transfusion Reactions: No Reported Reaction Past Psychological History: No Psychological Hx Reported Smoking Status: Former smoker Past Alcohol Use History: None Reported Past Drug Use History: None Reported - Past Family History Mother Sister(s) Family Medical History: Cancer Father Family Medical History: Cancer Mother Family Medical History: Cancer Sister(s) Family Medical History: Cancer Medications and Allergies Home Medications Medication Instructions Recorded Confirmed Type Calcium Carbonate/Vitamin D3 1 tab PO DAILY 11/10/15 08/03/22 History [Calcium 600-Vit D3 400 Caplet] Furosemide [Lasix] 20 mg PO DAILY PRN 11/10/15 08/03/22 History Omeprazole [PriLOSEC] 20 mg PO DAILY 11/10/15 08/03/22 History Vit C/E/Zn/Coppr/Lutein/Zeaxan 1 cap PO DAILY 11/10/15 08/03/22 History [Preservision Areds 2 Softgel] Fexofenadine HCl [Krista Allergy] 180 mg PO DAILY 08/03/22 08/03/22 History Apixaban [Eliquis] 5 mg PO BID #60 tab 08/06/22 Rx Albuterol Sulfate [Albuterol 2 puff PO RT-Q6H PRN #1 each 08/07/22 Rx Sulfate Hfa] Amiodarone [Cordarone] 200 mg PO DIRECTED #80 tab 08/07/22 Rx Doxycycline [Vibramycin] 100 mg PO BID 2 Days #4 cap 08/07/22 Rx Metoprolol Succinate (ER) [Toprol 50 mg PO DAILY #30 tab 08/07/22 Rx XL] Nitroglycerin Sl Tabs [Nitrostat] 0.4 mg SUBLINGUAL Q5M PRN #20 tab 08/07/22 Rx predniSONE 10 mg PO DIRECTED #30 tab 08/07/22 Rx Allergies Allergy/AdvReac Type Severity Reaction Status Date / Time No Known Allergies Allergy Verified 03/30/23 05:46 Physical Exam Vitals: Vital Signs Temp Pulse Resp BP Pulse Ox 03/30/23 08:17 97.7 F 112 H 18 96/73 95 03/30/23 06:30 123 H 19 101/67 94 L 03/30/23 05:41 97.9 F 147 H 20 130/97 97 Intake and Output 03/29/23 03/30/23 03/30/23 22:59 06:59 14:59 Other: Weight 110.677 kg Results CBC & Chem 7: 03/30/23 06:07 03/30/23 06:07 Labs: Abnormal Lab Results - Last 24 Hours (Table) 03/30/23 Range/Units 06:07 BUN 22 H (9-20) mg/dL Creatinine 0.65 L (0.66-1.25) mg/dL Glucose 138 H (74-99) mg/dL
--- NOTE | 2023-03-30 12:41 | P.DS ---
Providers Date of admission: 03/30/23 07:15 Expected date of discharge: 03/30/23 Attending physician: Zakia Gastelum Consults: 03/30/23 07:12 Consult Physician Routine Consulting Provider: Alfredo Bruce Consult Reason/Comments: afib Do you want consulting provider notified?: Yes Primary care physician: [place] [facility] Course: Discharge diagnoses; A. fib RVR Hypertension History of COPD Hospital course; patient is a 82-year-old gentleman with past medical history significant for atrial fibrillation, hypertension who presented to the ER because of chest pain or palpitation. Patient stated that he woke up at 4 AM in the morning to use the bathroom. At that time patient was experiencing some chest pain and palpitation. Patient had a smart watch on did give him an alert that he was in A. fib with RVR. There was no complain of any orthopnea or PND. There was no complain shortness of breath at rest or exertion. There was no complain of any swelling of feet. Patient denies any nausea, vomiting or abdominal pain. Because of this chest pain or palpitation, patient came to the ER Initial lab work done in the ER showed WBC 10.3, hemoglobin 40.4, platelet count 24, sodium 141 potassium 4.1, BUNs 22, creatinine 0.65, glucose 138, calcium 9, magnesium 1.8, troponin 0.012 EKG done in the ER showed heart rate of 120, no P waves seen, no ST segment elevation or depression seen, no T-wave inversions seen. Chest x-ray done in the ER showed hypoventilatory changes with ongoing findings suggestive of CHF and pulmonary vascular congestion Patient admitted to internal medicine service Patient was seen by cardiology, patient underwent cardioversion. Currently sinus rhythm. Cardiology recommended discharging on Eliquis, amiodarone, Toprol cardiology cleared the patient for discharge. PHYSICAL EXAMINATION: GENERAL: The patient is alert and oriented x3, not in any acute distress. Well developed, well nourished. HEENT: Pupils are round and equally reacting to light. EOMI. No scleral icterus. No conjunctival pallor. Normocephalic, atraumatic. No pharyngeal erythema. No thyromegaly. CARDIOVASCULAR: S1 and S2 present. No murmurs, rubs, or gallops. PULMONARY: Chest is clear to auscultation, no wheezing or crackles. ABDOMEN: Soft, nontender, nondistended, normoactive bowel sounds. No palpable organomegaly. MUSCULOSKELETAL: No joint swelling or deformity. EXTREMITIES: No cyanosis, clubbing, or pedal edema. NEUROLOGICAL: Gross neurological examination did not reveal any focal deficits. SKIN: No rashes. Dictation was produced using [employer] dictation software. please excuse any grammatical, word or spelling errors. Patient Condition at Discharge: Fair Plan - Discharge Summary New Discharge Prescriptions: New Amiodarone [Cordarone] 200 mg PO BID #180 tab Continue Omeprazole [PriLOSEC] 20 mg PO DAILY Furosemide [Lasix] 20 mg PO DAILY PRN PRN Reason: leg swelling Vit C/E/Zn/Coppr/Lutein/Zeaxan [Preservision Areds 2 Softgel] 1 cap PO DAILY Calcium Carbonate/Vitamin D3 [Calcium 600-Vit D3 400 Caplet] 1 tab PO DAILY Fexofenadine HCl [Krista Allergy] 180 mg PO DAILY Apixaban [Eliquis] 5 mg PO BID #60 tab Amiodarone [Cordarone] 200 mg PO DIRECTED #80 tab Nitroglycerin Sl Tabs [Nitrostat] 0.4 mg SUBLINGUAL Q5M PRN #20 tab PRN Reason: Chest Pain predniSONE 10 mg PO DIRECTED #30 tab Metoprolol Succinate (ER) [Toprol XL] 50 mg PO DAILY #30 tab Doxycycline [Vibramycin] 100 mg PO BID 2 Days #4 cap Albuterol Sulfate [Albuterol Sulfate Hfa] 2 puff PO RT-Q6H PRN #1 each PRN Reason: Shortness Of Breath Discharge Medication List Calcium Carbonate/Vitamin D3 [Calcium 600-Vit D3 400 Caplet] 1 tab PO DAILY 11/10/15 [History] Furosemide [Lasix] 20 mg PO DAILY PRN 11/10/15 [History] Omeprazole [PriLOSEC] 20 mg PO DAILY 11/10/15 [History] Vit C/E/Zn/Coppr/Lutein/Zeaxan [Preservision Areds 2 Softgel] 1 cap PO DAILY 11/10/15 [History] Fexofenadine HCl [Krista Allergy] 180 mg PO DAILY 08/03/22 [History] Apixaban [Eliquis] 5 mg PO BID #60 tab 08/06/22 [Rx] Albuterol Sulfate [Albuterol Sulfate Hfa] 2 puff PO RT-Q6H PRN #1 each 08/07/22 [Rx] Amiodarone [Cordarone] 200 mg PO DIRECTED #80 tab 08/07/22 [Rx] Doxycycline [Vibramycin] 100 mg PO BID 2 Days #4 cap 08/07/22 [Rx] Metoprolol Succinate (ER) [Toprol XL] 50 mg PO DAILY #30 tab 08/07/22 [Rx] Nitroglycerin Sl Tabs [Nitrostat] 0.4 mg SUBLINGUAL Q5M PRN #20 tab 08/07/22 [Rx] predniSONE 10 mg PO DIRECTED #30 tab 08/07/22 [Rx] Amiodarone [Cordarone] 200 mg PO BID #180 tab 03/30/23 [Rx] Follow up Appointment(s)/Referral(s): Luan Whitley MD [STAFF PHYSICIAN] - 04/11/23 4:00 pm Avel Sifuentes DO [Primary Care Provider] - 1-2 days Discharge Disposition: HOME SELF-CARE
== END 2023-03-30 13:04 | disposition home or self-care (01) | DRG 310 ==
LOC: EC 05:35 → 1SOBS 07:15
PROVIDERS: ADMIT Hospitalist; ATTEND Hospitalist
PROC: 5A2204Z Restoration of Cardiac Rhythm, Single (ICD-10-PCS; principal; 2023-03-30 07:30)
DX: I48.0 Paroxysmal atrial fibrillation (principal); I95.9 Hypotension, unspecified; J44.9 Chronic obstructive pulmonary disease, unspecified; I10 Essential (primary) hypertension; H35.30 Unspecified macular degeneration; H91.90 Unspecified hearing loss, unspecified ear; K21.9 Gastro-esophageal reflux disease without esophagitis; Z96.653 Presence of artificial knee joint, bilateral; Z98.61 Coronary angioplasty status; Z79.01 Long term (current) use of anticoagulants; Z87.891 Personal history of nicotine dependence; Z28.310 Unvaccinated for COVID-19; Z79.899 Other long term (current) drug therapy
CPT/HCPCS: 36415; 71045; 80053; 83735; 84484; 85025; 85610; 85730; 93005; 99291

== ENCOUNTER → 2023-08-30 | Outpatient (CLI) | payer MEDICARE ==
--- NOTE | 2023-08-30 20:28 | US ---
EXAMINATION TYPE: US groin RT DATE OF EXAM: 08/30/2023 COMPARISON: NONE CLINICAL INDICATION: Male, 83 years old with history of R10.2 PELVIC AND PERINEAL PAIN; Right groin p ain x 6 months. TECHNIQUE: Multiple sonographic images taken of the right groin with grayscale and color Doppler ult rasound. FINDINGS/IMPRESSION: Right groin scanned at area of concern and inguinal canal. No abnormality or h ernia visualized at time of scan. Valsalva performed with no movement seen to suggest hernia. No ly mphadenopathy demonstrated. No fluid collections.
== END | disposition home or self-care (01) ==
LOC: RADUSWWP 16:31
PROVIDERS: ATTEND Family Medicine
DX: R10.2 Pelvic and perineal pain (principal)

== ENCOUNTER → 2024-02-27 | Outpatient (CLI) | payer MEDICARE ==
--- NOTE | 2024-02-28 17:19 | MR ---
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 COMPARISONS: No priors. TECHNIQUE: Multi planar, multi sequence imaging was performed utilizing: T1-weighted, T2-weighted, a nd turbo inversion recovery imaging of the lumbar spine. The patient was not given contrast. FINDINGS: There are 5 lumbar type vertebral bodies identified. Levoscoliotic curvature lumbar spine w ith apex at L3-L4. Mild retrolisthesis of L2 on L3 and L3 on L4. No acute fracture. Subacute appearin g superior endplate compression deformity involving the L5 vertebral body with some STIR signal ident ified along the anterosuperior aspect. It is approximately 10 % height loss (series 501, image 12). N o retropulsion. Type II Modic changes involving the superior endplate of the L5 vertebral body. Multi level disc desiccation is present. The conus medullaris and the distal spinal cord do appear unremar kable with regards to their signal intensity and morphology. T12-L1: No significant disc pathology is identified. The spinal canal and neural foramen are patent L1-L2: No significant disc pathology is identified. The spinal canal and neural foramen are patent. L2-L3: Retrolisthesis with broad-based disc bulge. Minimal central canal narrowing. Bilateral facet arthropathy. No significant neural foraminal stenosis. L3-L4: Retrolisthesis with broad-based disc bulge resulting in minimal narrowing of the central maurice l. Bilateral facet arthropathy. Moderate to severe right and mild left neural foraminal stenosis. L4-L5: Broad-based disc bulge is identified with associated enlargement of the facet joints. The spi nal canal remains patent. Moderate left and mild right neural foraminal narrowing. L5-S1: Tiny central disc protrusion with annular fissure. No significant mass effect upon the thecal sac. Facet joints are enlarged. Neural canals are mildly narrowed bilaterally. Other significant findings: None. IMPRESSION: 1. Subacute appearing superior endplate compression deformity of the L5 vertebral body with approxim ately 10% height loss and no retropulsion. There is only edema identified within the anterior superio r aspect of the superior endplate. 2. Multilevel disc degeneration with associated osteoarthritic changes as described above. No signif icant central canal stenosis. Varying degrees of neuroforaminal stenosis as described above. 3. Levoscoliotic curvature of the lumbar spine with apex at L3-L4. Mild retrolisthesis of L2 on L3 an d L3 on L4. [facility], , 02/28/2024 5:17 PM
== END | disposition home or self-care (01) ==
LOC: RADMRIMAIN 18:25
PROVIDERS: ATTEND Family Medicine
DX: M43.16 Spondylolisthesis, lumbar region (principal); M48.56XA Collapsed vertebra, not elsewhere classified, lumbar region, initial encounter for fracture; M51.369 Other intervertebral disc degeneration, lumbar region without mention of lumbar back pain or lower extremity pain; M47.816 Spondylosis without myelopathy or radiculopathy, lumbar region; M41.86 Other forms of scoliosis, lumbar region
CPT/HCPCS: 72148

== ENCOUNTER → 2024-07-10 | Outpatient (CLI) | payer MEDICARE ==
[2024-07-10 13:37] VITALS: BP 96/49; PULSE 77; RESP 18; TEMP 97.6
--- NOTE | 2024-07-10 14:04 | P.PAINCN ---
History of Present Illness - History of Present Illness 83-year-old pleasant gentleman who has been having pain in the right posterola teral flank area for the last 3 years. Patient cannot recall any fall or trauma prior to the initiation of the pain. Patient relates, his pain is there all the time but goes away almost completely after taking Tylenol 1 to 1.5 g. At its worst the pain goes up to 8/10. Any physical activity including bending increases the pain. Tylenol almost takes away his pain. Denies any new sensory or motor changes. Denies any new bowel bladder dysfunction. Patient has gone through physical therapy, pain medication including Tylenol and Lidoderm patch. Past Medical History Past Medical History: COPD, Eye Disorder, GERD/Reflux, Hearing Disorder / Deafness, Hypertension, Osteoarthritis (OA) Additional Past Medical History / Comment(s): macular degeneration, leaky aortic valve-stable, dr. jones History of Any Multi-Drug Resistant Organisms: None Reported Past Surgical History: Appendectomy, Cholecystectomy, Heart Catheterization, Hernia Repair, Joint Replacement, Orthopedic Surgery Additional Past Surgical History / Comment(s): ruptured tendon repair right ankle/foot, bilateral cataract surg-WITH IMPLANTS, TOTAL B/L KNEE , Past Anesthesia/Blood Transfusion Reactions: No Reported Reaction Past Psychological History: No Psychological Hx Reported Smoking Status: Former smoker Past Alcohol Use History: None Reported Additional Past Alcohol Use History / Comment(s): STARTED SMOKING AT AGE 18 QUIT AT AGE 40 SMOKED 1/2-1ppd Past Drug Use History: None Reported - Past Family History Mother Sister(s) Family Medical History: Cancer Father Family Medical History: Cancer Mother Family Medical History: Cancer Sister(s) Family Medical History: Cancer Medications and Allergies Home Medications Medication Instructions Recorded Confirmed Type Calcium Carbonate/Vitamin D3 1 tab PO DAILY 11/10/15 03/30/23 History [Calcium 600-Vit D3 400 Caplet] Furosemide [Lasix] 20 mg PO DAILY PRN 11/10/15 03/30/23 History Omeprazole [PriLOSEC] 20 mg PO DAILY 11/10/15 03/30/23 History Vit C/E/Zn/Coppr/Lutein/Zeaxan 1 cap PO DAILY 11/10/15 03/30/23 History [Preservision Areds 2 Softgel] Apixaban [Eliquis] 5 mg PO BID #60 tab 08/06/22 03/30/23 Rx Albuterol Sulfate [Albuterol 2 puff PO RT-Q6H PRN #1 each 08/07/22 03/30/23 Rx Sulfate Hfa] Metoprolol Succinate (ER) [Toprol 50 mg PO DAILY #30 tab 08/07/22 03/30/23 Rx XL] Nitroglycerin Sl Tabs [Nitrostat] 0.4 mg SUBLINGUAL Q5M PRN #20 tab 08/07/22 03/30/23 Rx Amiodarone [Cordarone] 200 mg PO BID #180 tab 03/30/23 Rx Loratadine [Claritin] 10 mg PO DAILY 03/30/23 03/30/23 History Allergies Allergy/AdvReac Type Severity Reaction Status Date / Time No Known Allergies Allergy Verified 03/30/23 13:11 Physical Exam Vitals: Vital Signs Temp Pulse Resp BP Pulse Ox 07/10/24 13:32 97.6 F 77 18 96/49 100 Intake and Output 07/09/24 07/10/24 07/10/24 22:59 06:59 14:59 Other: Weight 114.759 kg Physical Examinations : -Constitutiona : Cooperative , not in acute distress . -HEENT : nech : supple , no Lymphadenopathy , normal thyroid size . : eyes : no ptosis , no icterus, no photophobia . - neurologic : Cranial nerve II to XII intact , no focal neurological deffecit . -psychatric : alert , oriented X 3 , appropriate affect , intact judgment and insight . -Lymphatic : no Lymphadenopathy . - musculoskeltal : Lumber spine moter stegnth lower extremities ,thigh and legs 5/5 Right side , 5/5 Left side deep tendon reflexes : normal Knee Jerk , normal ankle Jerk lumber facet Loading Test =positive Right , positive Left Range of motion of the lumbar spine Flexion 30 degrees, extension 10 degrees strait leg raising test = negative bilaterally F Gaenslen test= bilaterally. No significant tenderness on palpation over the thoracolumbar spine in midline and paraspinal areas. I could not elicit or reproduce his pain on deep palpation over the right flank area. No significant tenderness over the ribs on deep palpation. Assessment and Plan Assessment: Pain in right posterolateral flank area. Etiology of pain could be- Lumbar spine spondylosis. Disc herniation. Radiculopathy. Lower rib costochondritis. Plan: Offered patient L2-3 epidural interlaminar steroid injection. At this point patient is reluctant to get any LON. I suggested him that next time the pain get worse he should come to pain clinic for evaluation without taking any Tylenol so we can do physical examination to differentiate if it is originated from spine or some form of costochondritis. Patient understands and all questions were answered. PQRS Measure Charge Sheet Mode of Arrival: Ambulatory - Pain Location Neck Non-Pharmacological Interventions: Inactivity, Meditation Pharmacological Interventions: PRN Medication PQRS Narrative: Smoking Status Former smoker Blood Pressure 96/49 Pain Intensity [Neck] 7 Scale Used Numeric (1 - 10) Hx Alcohol Use (MH) No Home Medications: Ambulatory Orders Calcium Carbonate/Vitamin D3 [Calcium 600-Vit D3 400 Caplet] 1 tab PO DAILY 11/10/15 Furosemide [Lasix] 20 mg PO DAILY PRN 11/10/15 Omeprazole [PriLOSEC] 20 mg PO DAILY 11/10/15 Vit C/E/Zn/Coppr/Lutein/Zeaxan [Preservision Areds 2 Softgel] 1 cap PO DAILY 11/10/15 Apixaban [Eliquis] 5 mg PO BID #60 tab 08/06/22 Albuterol Sulfate [Albuterol Sulfate Hfa] 2 puff PO RT-Q6H PRN #1 each 08/07/22 Metoprolol Succinate (ER) [Toprol XL] 50 mg PO DAILY #30 tab 08/07/22 Nitroglycerin Sl Tabs [Nitrostat] 0.4 mg SUBLINGUAL Q5M PRN #20 tab 08/07/22 Amiodarone [Cordarone] 200 mg PO BID #180 tab 03/30/23 Loratadine [Claritin] 10 mg PO DAILY 03/30/23
== END ==
LOC: PNWHC3 12:42
PROVIDERS: ATTEND Pain Medicine Interventional Pain Medicine
DX: M47.16 Other spondylosis with myelopathy, lumbar region (principal); M94.0 Chondrocostal junction syndrome [Tietze]; M51.16 Intervertebral disc disorders with radiculopathy, lumbar region; Z87.891 Personal history of nicotine dependence
CPT/HCPCS: 99211

== ENCOUNTER 2024-09-21 18:35 | Emergency (ER) | payer MEDICARE ==
[2024-09-21 18:39] VITALS: TEMP 97.6
--- NOTE | 2024-09-21 18:43 | ED ---
Chest Pain HPI - General Chief Complaint: Chest Pain Stated Complaint: Abd Pain Time Seen by Provider: 09/21/24 18:42 Source: patient, RN notes reviewed, old records reviewed Mode of arrival: ambulatory Limitations: no limitations - History of Present Illness Initial Comments: This 84 male to the ED for evaluation od abdominal pain and chest pain severe abdominal pain chest pain right upper quad abdominal pain with nausea abdominal bloating, history of cholecystectomy feels like prior similar symptoms with gallbladder MD Complaint: chest pain, other (abdominal pain) -: days(s) Onset: during rest, during exertion Pain Location: substernal, epigastric Pain Radiation: abdomen Severity: moderate Severity scale (1-10): 7 Quality: sharp Consistency: constant Improves With: nothing Worsens With: nothing Anginal Symptoms: nausea, dyspnea, sense of impending doom Other Symptoms: palpitations Treatments Prior to Arrival: none - Related Data Home Medications Medication Instructions Recorded Confirmed Calcium Carbonate/Vitamin D3 1 tab PO DAILY 11/10/15 03/30/23 [Calcium 600-Vit D3 400 Caplet] Furosemide [Lasix] 20 mg PO DAILY PRN 11/10/15 03/30/23 Omeprazole [PriLOSEC] 20 mg PO DAILY 11/10/15 03/30/23 Vit C/E/Zn/Coppr/Lutein/Zeaxan 1 cap PO DAILY 11/10/15 03/30/23 [Preservision Areds 2 Softgel] Loratadine [Claritin] 10 mg PO DAILY 03/30/23 03/30/23 Previous Rx's Medication Instructions Recorded Apixaban [Eliquis] 5 mg PO BID #60 tab 08/06/22 Albuterol Sulfate [Albuterol 2 puff PO RT-Q6H PRN #1 each 08/07/22 Sulfate Hfa] Metoprolol Succinate (ER) [Toprol 50 mg PO DAILY #30 tab 08/07/22 XL] Nitroglycerin Sl Tabs [Nitrostat] 0.4 mg SUBLINGUAL Q5M PRN #20 tab 08/07/22 Amiodarone [Cordarone] 200 mg PO BID #180 tab 03/30/23 Allergies Allergy/AdvReac Type Severity Reaction Status Date / Time No Known Allergies Allergy Verified 09/21/24 18:39 Review of Systems ROS Statement: Those systems with pertinent positive or pertinent negative responses have been documented in the HPI. ROS Other: All systems not noted in ROS Statement are negative. EKG Findings - EKG Comments: EKG Findings:: EKG is sinus 61 IN 136 QRS 117 QTc 402 - EKG Results: EKG: interpreted by DONNA Past Medical History Past Medical History: Atrial Fibrillation, COPD, Eye Disorder, GERD/Reflux, Hearing Disorder / Deafness, Hypertension, Osteoarthritis (OA) Additional Past Medical History / Comment(s): macular degeneration, leaky aortic valve-stable, dr. jones History of Any Multi-Drug Resistant Organisms: None Reported Past Surgical History: Appendectomy, Cholecystectomy, Heart Catheterization, Hernia Repair, Joint Replacement, Orthopedic Surgery Additional Past Surgical History / Comment(s): ruptured tendon repair right ankle/foot, bilateral cataract surg-WITH IMPLANTS, TOTAL B/L KNEE , Past Anesthesia/Blood Transfusion Reactions: No Reported Reaction Past Psychological History: No Psychological Hx Reported Smoking Status: Former smoker Past Alcohol Use History: None Reported Past Drug Use History: None Reported - Past Family History Mother Sister(s) Family Medical History: Cancer Father Family Medical History: Cancer Mother Family Medical History: Cancer Sister(s) Family Medical History: Cancer General Exam Limitations: no limitations General appearance: alert, in no apparent distress Head exam: Present: atraumatic, normocephalic, normal inspection Eye exam: Present: normal appearance, PERRL, EOMI. Absent: scleral icterus, conjunctival injection, periorbital swelling ENT exam: Present: normal exam, mucous membranes moist Neck exam: Present: normal inspection. Absent: tenderness, meningismus, lymphadenopathy Respiratory exam: Present: normal lung sounds bilaterally. Absent: respiratory distress, wheezes, rales, rhonchi, stridor Cardiovascular Exam: Present: regular rate, normal rhythm, normal heart sounds. Absent: systolic murmur, diastolic murmur, rubs, gallop, clicks GI/Abdominal exam: Present: soft, normal bowel sounds. Absent: distended, tenderness, guarding, rebound, rigid Extremities exam: Present: normal inspection, full ROM, normal capillary refill. Absent: tenderness, pedal edema, joint swelling, calf tenderness Back exam: Present: normal inspection Neurological exam: Present: alert, oriented X3, CN II-XII intact Psychiatric exam: Present: normal affect, normal mood Skin exam: Present: warm, dry, intact, normal color. Absent: rash Course Vital Signs 09/21/24 09/21/24 09/21/24 18:36 19:40 19:48 Temperature 97.6 F Pulse Rate 61 60 Pulse Rate [ 59 L Right Sitting Radial] Respiratory 22 18 Rate Blood Pressure 170/64 167/76 O2 Sat by Pulse 96 96 Oximetry - Reevaluation(s) Reevaluation #1: 09/21/24 21:41 Medical records reviewed Reevaluation #2: 09/21/24 21:41 Patient's pain is improving Reevaluation #3: 09/21/24 21:42 Patient informed of results questions answered Reevaluation #4: Was pt. sent in by a medical professional or institution (, [facility], INSULATION INSTALLER, urgent care, hospital, or fci...) When possible be specific @ -no Did you speak to anyone other than the patient for history (EMS, parent, family, police, friend...)? What history was obtained from this source @ -no Did you review nursing and triage notes (agree or disagree)? Why? @ -agree Are old charts reviewed (outside hosp., previous admission, EMS record, old EKG, old radiological studies, urgent care reports/EKG's, fci records)? Report findings @ -yes Differential Diagnosis (chest pain, altered mental status, abdominal pain women, abdominal pain men, vaginal bleeding, weakness, fever, dyspnea, syncope, headache, dizziness, GI bleed, back pain, seizure, CVA, palpatations, mental health, musculoskeletal)? @ -prior EKG interpreted by me (3pts min.). @ -yes X-rays interpreted by me (1pt min.). @ -yes negative for acute disease CT interpreted by me (1pt min.). @ -no U/S interpreted by me (1pt. min.). @ -no What testing was considered but not performed or refused? (CT, X-rays, U/S, labs)? Why? @ -none What meds were considered but not given or refused? Why? @ -none Did you discuss the management of the patient with other professionals (professionals i.e. AISSATOU Davison, INSULATION INSTALLER, lab, RT, psych nurse, social media job titles, general utility machine operator, teacher, senior grants officer, case preparer and liner)? Give summary @ -no Was smoking cessation discussed for >3mins.? @ -no Was critical care preformed (if so, how long)? @ -no Were there social determinants of health that impacted care today? How? (Homelessness, low income, unemployed, alcoholism, drug addiction, transportation, low edu. Level, literacy, decrease access to med. care, group home, rehab)? @ -none Was there de-escalation of care discussed even if they declined (Discuss DNR or withdrawal of care, Hospice)? DNR status @ -no What co-morbidities impacted this encounter? (DM, HTN, Smoking, COPD, CAD, Cancer, CVA, ARF, Chemo, Hep., AIDS, mental health diagnosis, sleep apnea, morbid obesity)? @ -none Was patient admitted / discharged? Hospital course, mention meds given and route, prescriptions, significant lab abnormalities, going to OR and other pertinent info. @ - Undiagnosed new problem with uncertain prognosis? @ -no Drug Therapy requiring intensive monitoring for toxicity (Heparin, Nitro, Insulin, Cardizem)? @ -no Were any procedures done? @ -no Diagnosis/symptom? @ - Acute, or Chronic, or Acute on Chronic? @ -Acute Uncomplicated (without systemic symptoms) or Complicated (systemic symptoms)? @ -Complicated Side effects of treatment? @ -no Exacerbation, Progression, or Severe Exacerbation? @ -exacerbation Poses a threat to life or bodily function? How? (Chest pain, [place], [place], pneumonia, PE, COPD, DKA, ARF, appy, cholecystitis, CVA, Diverticulitis, Homicidal, Suicidal, threat to staff... and all critical care pts) @ -yes Reevaluation #5: Differential Abdominal Pain Men: Appendicitis, cholecystitis, diverticulosis, ischemic bowel, pancreatitis, hepatitis, UTI, gastroenteritis, AAA, incarcerated hernia, bowel obstruction, constipation, inflammatory bowel, hepatitis, peptic ulcer disease, splenic infarction, perforated viscus, testicular torsion, this is not meant to be an all-inclusive list - Consultations Consultation #1: Spoke with Vera Leyva agrees to accept this patient Chest Pain MDM - MDM 84 male to ER for evaluation with history of cholecystectomy now with acute pancreatitis elevation of liver enzymes, patient be transferred for ERCP MRCP Disposition Clinical Impression: Transaminitis, Gallstone pancreatitis, Choledocholithiasis with obstruction, Pancreatitis, Chest pain, Abdominal pain Disposition: OTHER INSTITUTION NOT DEFINED Condition: Serious Is patient prescribed a controlled substance at d/c from ED?: No Referrals: Avel Sifuentes DO [Primary Care Provider] - 1-2 days Time of Disposition: 21:30
[2024-09-21 19:14] LABS: Basophils # (A) 0.06 10*3/uL (0.00-0.10); Basophils % (A) 0.7 %; Eosinophils # (A) 0.14 10*3/uL (0.04-0.35); Eosinophils % (A) 1.7 %; HCT 44.7 % (39.6-50.0); Lymphocytes # (A) 0.81 10*3/uL (0.90-5.00); Lymphocytes % (A) 9.9 %; MCH 32.3 pg (27.0-32.0); MCHC 33.6 g/dL (32.0-37.0); MCV 96.3 fL (80.0-97.0); Monocytes # (A) 0.62 10*3/uL (0.20-1.00); Monocytes % (A) 7.6 %; Neutrophils # (A) 6.52 10*3/uL (1.80-7.70); Neutrophils % (A) 79.6 %; Platelet Count 229 10*3/uL (140-440); RBC 4.64 10*6/uL (4.40-5.60); RDW 13.2 % (11.5-14.5); WBC 8.19 10*3/uL (4.50-10.00)
[2024-09-21 19:26] LABS: Partial Thromboplastin Time 24.4 sec (22.0-30.0); Prothrombin Time 10.7 sec (10.0-12.5)
[2024-09-21 19:27] LABS: ALT 226 U/L (4-49); AST 362 U/L (17-59); African American GFR (CKD) >90 (>60 ml/min/1.73 sqM); Alkaline Phosphatase 257 U/L (38-126); Anion Gap 8 mmol/L; Blood Urea Nitrogen 18 mg/dL (9-20); Calcium 9.1 mg/dL (8.4-10.2); Carbon Dioxide 31 mmol/L (22-30); Chloride 104 mmol/L (98-107); Glucose 94 mg/dL (74-99); Magnesium 1.9 mg/dL (1.6-2.3); Non-African American GFR(CKD) 83 (>60 ml/min/1.73 sqM); Sodium 143 mmol/L (137-145); Total Bilirubin 2.7 mg/dL (0.2-1.3); Total Protein 6.8 g/dL (6.3-8.2)
[2024-09-21 19:35] LABS: NT-Pro-B-Type Natriuretic Pept 484 pg/mL
[2024-09-21 19:48] VITALS: RESP 18
[2024-09-21] MEDS: SODIUM CHLORIDE 0.9% 500 ML 500 ML IV STA (19:52)
[2024-09-21] MEDS: ONDANSETRON 4 MG/2 ML VIAL IVP STA (19:52)
--- NOTE | 2024-09-21 19:52 | XR ---
EXAMINATION TYPE: XR chest 2V DATE OF EXAM: 09/21/2024 7:20 PM COMPARISON: Chest radiographs from 03/30/2023 CLINICAL INDICATION: Male, 84 years old with history of Chest Pain; [facility] TECHNIQUE: XR chest 2V Frontal and lateral views of the chest. FINDINGS: Lungs/Pleura: Low lung volumes are present. There is no evidence of pleural effusion, focal consolida tion, or pneumothorax. Pulmonary vascularity: Unremarkable. Heart/mediastinum: Cardiomediastinal silhouette is unremarkable. Musculoskeletal: No acute osseous pathology. IMPRESSION: Low lung volumes with a generalized hazy appearance which could represent atelectasis versus pulmonar y edema correlate with serum BNP. [facility], , 09/21/2024 7:50 PM
[2024-09-21] MEDS: MORPHINE SULFATE 4 MG/ML SYRINGE IV STA (19:54)
[2024-09-21 20:04] LABS: Lipase >20000 U/L (23-300)
--- NOTE | 2024-09-21 20:54 | CT ---
EXAMINATION TYPE: CT abdomen pelvis w con DATE OF EXAM: 09/21/2024 8:44 PM COMPARISON: None CLINICAL INDICATION: Male, 84 years old with history of pain; Epigastric pain TECHNIQUE: Axial CT abdomen pelvis w con;Sagittal and coronal reformats were created on a separate w orkstation. Contrast used:100 ml mL of Isovue 370 with IV Contrast, (none if empty) Oral contrast used: without Oral Contrast (none if empty) CT DLP: 1808.7 mGycm, Automated exposure control for dose reduction was used. FINDINGS: LOWER CHEST: Please see dedicated CT chest for findings ABDOMEN LIVER: Unremarkable GALLBLADDER AND BILE DUCTS: Dilated common duct measuring up to 14 mm no filling defect to suggest ch oledocholithiasis. Mild Fat stranding changes around the tamy hepatis and the gallbladder fossa. Gal lbladder surgically absent. PANCREAS: Mild Fat stranding changes around the pancreatic head and neck. SPLEEN: Unremarkable. ADRENAL GLANDS: Unremarkable. KIDNEYS AND URETERS: No evidence of hydronephrosis or obstructing renal calculus. The ureters are unr emarkable. Simple appearing right renal cortical cyst. No follow-up recommended. PELVIS BLADDER: No evidence for wall thickening or mass given limitations of exam. REPRODUCTIVE: Unremarkable. ABDOMEN & PELVIS STOMACH AND BOWEL: No evidence of bowel obstruction. Scattered colonic diverticula. PERITONEUM/RETROPERITONEUM: No evidence of pneumoperitoneum or free fluid. VASCULATURE: No evidence of aortic aneurysm. MUSCULOSKELETAL: No acute osseous abnormalities. Moderate disc degeneration changes are present throu ghout the thoracolumbar spine. Stable superior endplate deformity at the T9 vertebral body. LYMPH NODES: No gross evidence for lymphadenopathy. SOFT TISSUE/ABDOMINAL WALL: Bilateral fat-containing inguinal hernias left greater than right. IMPRESSION: 1. Inflammation changes around the upper abdomen duodenum gastric antrum and pancreas. Correlate wit h serum markers to exclude pancreatitis. Otherwise findings suspicious for duodenitis/gastritis. Cons ider MRCP to exclude underlying choledocholithiasis if there is concern. 2. Colonic diverticulosis. 3. Bilateral fat-containing ventral hernias. [facility], , 09/21/2024 8:52 PM
--- NOTE | 2024-09-21 20:58 | CT ---
EXAMINATION TYPE: CT angio chest DATE OF EXAM: 09/21/2024 8:46 PM COMPARISON: 07/14/2020. CLINICAL INDICATION: Male, 84 years old with history of pain; Epigastric pain TECHNIQUE/CONTRAST: CTA scan of the thorax is performed with IV Contrast, patient injected with 100 ml mL of Isovue 370, MIP images are created and reviewed these are created on a separate workstation.. CT DLP: 602.4 mGycm, Automated exposure control for dose reduction was used. FINDINGS: Lungs/Pleura: No evidence of focal consolidation, pleural effusion or pneumothorax. Airway: Large airways are patent. Heart: Cardiomegaly is demonstrated. Mild coronary artery calcifications present. Vasculature: There is no evidence for a filling defect within the pulmonary vasculature to suggest ac lidia pulmonary embolism. The pulmonary artery is of normal size. Mediastinum: No gross evidence of adenopathy. Small hiatal hernia. Musculoskeletal: Mild disc degeneration changes are present throughout the thoracolumbar spine second veronica to osteophyte formation and facet joint arthropathy. Stable T9 superior endplate deformity and T4 superior endplate deformity. Soft Tissues/lymph nodes: Unremarkable. Lower neck: No significant findings. IMPRESSION: 1. No evidence of pulmonary embolism. 2. Pulmonary edema with cardiomegaly probably for congestive heart failure. Follow up recommendations for incidental pulmonary nodules, if there are any, are per [employer]?s [employer] [employer] or [place]. [email or web address].org/articles/[email or web address]-xncoolz-gpdhicijm-[email or web address]?lang=us [facility], , 09/21/2024 8:55 PM
[2024-09-21] MEDS: HYDROmorphone 1 MG/ML 1 ML SYRINGE IVP STA (21:00)
[2024-09-21 22:18] VITALS: BP 179/67; PULSE 63
== END 2024-09-21 23:02 | disposition other institution (70) ==
LOC: EC 18:35
DX: K85.10 Biliary acute pancreatitis without necrosis or infection (principal); K80.21 Calculus of gallbladder without cholecystitis with obstruction; R74.01 Elevation of levels of liver transaminase levels; R07.2 Precordial pain; Z87.891 Personal history of nicotine dependence
CPT/HCPCS: 36415; 93005; 83880; 80053; 83690; 83735; 84484; 85025; 85610; 85730; 71046; 71275; 74177; 99285; 96374; 96375 ×2; 96361; J2270; J2405; J1171; Q9967